=== PATIENT | female | born 1960 | race Caucasian/White ===

== ENCOUNTER 2018-02-26 20:38 | Inpatient (IN) | payer OTHER, SELFPAY ==
[~2018-02-26] VITALS: Ht 157.5 cm; Wt 92.0 kg
[~2018-02-26 20:38] MED LIST: AEROECLIPSE1 EACH MC; AZAT50 PO; Ativan0.5 MG PO; B Complex #11 EACH PO; BENZ100A PO; BIOTIN1000 MCG PO; Calcium + Vita1 EACH PO; Carisoprodol350 MG PO; DOXY100 PO; Duoneb 2.5-0.5 M3 ML INH; ESTROVEN NIGHT1 EAC1 PO; Flonase 0.05% N16 GM; LEVSOD100 PO; LORA1 PO; MORP30 PO; MORP30ER PO; MORP50ER PO; MORP60ER PO; MORPHINE SULFA100 MG PO; Mucinex600 MG PO; OCTAGAM 10% VIA20 ML IV; ONDA8 PO; Omeprazole20 M1 PO; PROCODE120 PO; PYRI60 PO; SOMA350 MG PO; SUMA25 PO; TEMA7.5 PO; VENL150ER PO; VOLTAREN GEL TOP; VOLTAREN TOP; Vanadom350 MG PO; Vibramycin100 MG PO; [UNRECOGNIZED DRUG - OTHER] PO
[2018-02-26] MEDS ORDERED: CYCL10 PO (21:01)
[2018-02-26] MEDS ORDERED: DIPH50 PO (21:02)
[2018-02-26 21:53] LABS: BASOPHILS ABSOLUTE AUTO 0.01 K/mm3 (0.00-0.23); BASOPHILS PERCENT AUTO 0 % (0-2); EOSINOPHILS ABSOLUTE AUTO 0.17 K/mm3 (0.00-0.68); EOSINOPHILS PERCENT AUTO 4 % (0-6); Hematocrit 35.3 % (33.0-51.0); Hemoglobin 11.5 g/dL (11.5-16.0); IMMATURE GRAN ABSOLUTE AUTO 0.01 K/mm3 (0.00-0.10); IMMATURE GRAN PERCENT AUTO 0 % (0-1); LYMPHOCYTES ABSOLUTE AUTO 1.15 K/mm3 (0.84-5.20); LYMPHOCYTES PERCENT AUTO 29 % (21-46); MONOCYTES ABSOLUTE AUTO 0.37 K/mm3 (0.16-1.47); MONOCYTES PERCENT AUTO 9 % (4-13); Mean Corpuscular HGB 32.8 pg (26.0-34.0); Mean Corpuscular HGB Conc 32.6 g/dL (31.5-36.5); Mean Corpuscular Volume 101 fL (80-100); Mean Platelet Volume 10.4 fL (9.1-12.4); NEUTROPHILS ABSOLUTE AUTO 2.31 K/mm3 (1.96-9.15); NEUTROPHILS PERCENT AUTO 58 % (41-73); Platelet Count 213 K/mm3 (150-400); RDW Coefficient Variation 16.2 % (11.7-14.2); RDW Standard Deviation 59.6 fL (35.1-46.3); Red Blood Cell Count 3.51 M/mm3 (3.80-5.20); White Blood Cell Count 4.02 K/mm3 (4.00-11.30)
[2018-02-26 22:20] LABS: Alanine Aminotransfer (ALT/SGP 145 U/L (12-78); Albumin/Globulin Ratio 1.1 (0.8-1.8); Alk Phos 105 U/L (50-136); Anion Gap 5 mmol/L (6-16); Aspartate Aminotrans (AST/SGOT 167 U/L (12-37); Bilirubin, Total 0.5 mg/dL (0.1-1.0); Blood Urea Nitrogen 20 mg/dL (8-24); Bun/Creatinine Ratio 31.2 (12.0-20.0); CO2, Blood 29 mmol/L (21-32); Calcium, Blood 9.1 mg/dL (8.5-10.1); Chloride, Blood 105 mmol/L (98-108); Creatinine, Blood 0.64 mg/dL (0.40-1.00); Globulin, Blood 3.8 g/dL (2.2-4.0); Glomerular Filtration Rate >60 (60-); Glucose, Blood 122 mg/dL (70-99); Potassium, Blood 3.5 mmol/L (3.5-5.5); Sodium, Blood 139 mmol/L (136-145); Total Protein, Blood 7.8 g/dL (6.4-8.2)
[2018-02-26 22:31] LABS: Source, Urine Catheter
[2018-02-26 22:34] LABS: Bilirubin, Urine Neg (Neg); Blood, Urine Neg (Neg); Glucose Qualitative, Urine Neg (Neg); Ketones, Urine Neg (Neg); Leukocyte Esterase, Urine Neg (Neg); Nitrite, Urine Neg (Neg); Protein, Urine Neg (Neg); Urobilinogen, Urine NORM (Normal)
[2018-02-26 22:37] LABS: Appearance, Urine Clear (Clear); Color, Urine Yellow (P-Yellow)
[2018-02-26 22:52] LABS: Free Thyroxine 1.25 ng/dL (0.70-1.60)
[2018-02-26 22:54] LABS: Thyroid Stimulating Hormone 2.85 uIU/mL (0.360-4.800); Triiodothyronine, Free 3.14 pg/mL (2.18-3.98)
[2018-02-27] MEDS ORDERED: MORP15ER PO (02:35)
[2018-03-01 05:00] LABS: BASOPHILS ABSOLUTE AUTO 0.01 K/mm3 (0.00-0.23); BASOPHILS PERCENT AUTO 0 % (0-2); EOSINOPHILS PERCENT AUTO 5 % (0-6); Hematocrit 31.2 % (33.0-51.0); IMMATURE GRAN PERCENT AUTO 0 % (0-1); LYMPHOCYTES ABSOLUTE AUTO 1.09 K/mm3 (0.84-5.20); LYMPHOCYTES PERCENT AUTO 49 % (21-46); MONOCYTES ABSOLUTE AUTO 0.24 K/mm3 (0.16-1.47); MONOCYTES PERCENT AUTO 11 % (4-13); Mean Corpuscular HGB 32.6 pg (26.0-34.0); Mean Corpuscular HGB Conc 32.1 g/dL (31.5-36.5); Mean Corpuscular Volume 102 fL (80-100); NEUTROPHILS ABSOLUTE AUTO 0.79 K/mm3 (1.96-9.15); NEUTROPHILS PERCENT AUTO 35 % (41-73); Platelet Count 184 K/mm3 (150-400); RDW Coefficient Variation 15.9 % (11.7-14.2); Red Blood Cell Count 3.07 M/mm3 (3.80-5.20); White Blood Cell Count 2.23 K/mm3 (4.00-11.30)
[2018-03-01 05:27] LABS: Anion Gap 6 mmol/L (6-16); Blood Urea Nitrogen 5 mg/dL (8-24); Bun/Creatinine Ratio 11.1 (12.0-20.0); CO2, Blood 31 mmol/L (21-32); Calcium, Blood 8.6 mg/dL (8.5-10.1); Chloride, Blood 101 mmol/L (98-108); Creatinine, Blood 0.45 mg/dL (0.40-1.00); Glomerular Filtration Rate >60 (60-); Glucose, Blood 85 mg/dL (70-99); Potassium, Blood 3.6 mmol/L (3.5-5.5); Sodium, Blood 138 mmol/L (136-145)
[2018-03-03 04:16] LABS: BASOPHILS ABSOLUTE AUTO 0.02 K/mm3 (0.00-0.23); BASOPHILS PERCENT AUTO 1 % (0-2); EOSINOPHILS ABSOLUTE AUTO 0.08 K/mm3 (0.00-0.68); EOSINOPHILS PERCENT AUTO 3 % (0-6); Hematocrit 33.9 % (33.0-51.0); Hemoglobin 11.2 g/dL (11.5-16.0); IMMATURE GRAN PERCENT AUTO 0 % (0-1); LYMPHOCYTES ABSOLUTE AUTO 1.12 K/mm3 (0.84-5.20); LYMPHOCYTES PERCENT AUTO 48 % (21-46); MONOCYTES ABSOLUTE AUTO 0.29 K/mm3 (0.16-1.47); MONOCYTES PERCENT AUTO 12 % (4-13); Mean Corpuscular HGB 32.5 pg (26.0-34.0); Mean Corpuscular Volume 98 fL (80-100); Mean Platelet Volume 10.4 fL (9.1-12.4); NEUTROPHILS ABSOLUTE AUTO 0.83 K/mm3 (1.96-9.15); NEUTROPHILS PERCENT AUTO 35 % (41-73); Platelet Count 228 K/mm3 (150-400); RDW Coefficient Variation 15.5 % (11.7-14.2); RDW Standard Deviation 55.9 fL (35.1-46.3); Red Blood Cell Count 3.45 M/mm3 (3.80-5.20); White Blood Cell Count 2.34 K/mm3 (4.00-11.30)
[2018-03-03 04:30] LABS: Anion Gap 6 mmol/L (6-16); Blood Urea Nitrogen 7 mg/dL (8-24); Bun/Creatinine Ratio 15.9 (12.0-20.0); CO2, Blood 29 mmol/L (21-32); Calcium, Blood 8.9 mg/dL (8.5-10.1); Chloride, Blood 100 mmol/L (98-108); Creatinine, Blood 0.44 mg/dL (0.40-1.00); Glomerular Filtration Rate >60 (60-); Glucose, Blood 90 mg/dL (70-99); Sodium, Blood 135 mmol/L (136-145)
[2018-03-03] MEDS ORDERED: Benadryl25 MG (09:21)
[2018-03-03] MEDS ORDERED: Ms Contin100 MG PO (11:56)
== END 2018-03-03 12:50 | disposition home or self-care (01) | DRG 57 ==
LOC: ER 20:38 → PCU 02-27 00:18 → MEDS 02-27 02:00 → PCU 02-27 02:03 → MEDS 02-27 17:38
PROVIDERS: Emergency Medicine; Internal Medicine
DX: G70.01 Myasthenia gravis with (acute) exacerbation (principal); F11.20 Opioid dependence, uncomplicated; M81.0 Age-related osteoporosis without current pathological fracture; E03.9 Hypothyroidism, unspecified
CPT/HCPCS: 36415; 51701; 71046; 80048; 80053; 81003; 84439; 84443; 84481; 85025; 96365; 96366; 97161; 97166; 97535; 99285; G8978; G8979; G8980; G8987; G8988; G8989; J1568; J1650; J7030; J7500

== ENCOUNTER 2019-09-12 08:30 | Inpatient (IN) | payer MEDICARE ==
[~2019-09-12] VITALS: Ht 160 cm; Wt 107.1 kg
[~2019-09-12 08:30] MED LIST changes: -B Complex #11 EACH PO; +B Complex-Foli1 EACH PO; +Benadryl25 MG; +CYCL10 PO; +DIPH50 PO; +MORP15ER PO
[2019-09-12 08:56] LABS: Base Excess Venous 12.1 mmol/L; PCO2 Venous 68.7 mmHg (38-42); pH Blood Venous 7.35 (7.34-7.37)
[2019-09-12 08:56] LABS: BASOPHILS ABSOLUTE AUTO 0.01 K/mm3 (0.00-0.23); BASOPHILS PERCENT AUTO 0 % (0-2); EOSINOPHILS PERCENT AUTO 0 % (0-6); Hematocrit 35.5 % (33.0-51.0); Hemoglobin 10.8 g/dL (11.5-16.0); IMMATURE GRAN ABSOLUTE AUTO 0.02 K/mm3 (0.00-0.10); IMMATURE GRAN PERCENT AUTO 0 % (0-1); LYMPHOCYTES ABSOLUTE AUTO 0.64 K/mm3 (0.84-5.20); LYMPHOCYTES PERCENT AUTO 7 % (21-46); MONOCYTES ABSOLUTE AUTO 0.42 K/mm3 (0.16-1.47); MONOCYTES PERCENT AUTO 5 % (4-13); Mean Corpuscular HGB 28.6 pg (26.0-34.0); Mean Corpuscular HGB Conc 30.4 g/dL (31.5-36.5); Mean Corpuscular Volume 94 fL (80-100); Mean Platelet Volume 11.7 fL (9.1-12.4); NEUTROPHILS PERCENT AUTO 88 % (41-73); Platelet Count 211 K/mm3 (150-400); RDW Coefficient Variation 14.7 % (11.7-14.2); RDW Standard Deviation 51.3 fL (35.1-46.3); Red Blood Cell Count 3.77 M/mm3 (3.80-5.20); White Blood Cell Count 8.89 K/mm3 (4.00-11.30)
[2019-09-12 09:15] LABS: Alanine Aminotransfer (ALT/SGP 31 U/L (12-78); Albumin, Blood 3.7 g/dL (3.4-5.0); Albumin/Globulin Ratio 0.8 (0.8-1.8); Alk Phos 117 U/L (50-136); Anion Gap 3 mmol/L (6-16); Aspartate Aminotrans (AST/SGOT 28 U/L (12-37); Bilirubin, Total 0.3 mg/dL (0.1-1.0); Blood Urea Nitrogen 9 mg/dL (8-24); Bun/Creatinine Ratio 17.2 (12.0-20.0); CO2, Blood 37 mmol/L (21-32); Calcium, Blood 8.7 mg/dL (8.5-10.1); Chloride, Blood 95 mmol/L (98-108); Creatinine, Blood 0.52 mg/dL (0.40-1.00); Ethanol (Alcohol), Blood, Med <3 mg/dL; Globulin, Blood 4.4 g/dL (2.2-4.0); Glomerular Filtration Rate >60 (60-); Glucose, Blood 153 mg/dL (70-99); Potassium, Blood 3.3 mmol/L (3.5-5.5); Sodium, Blood 135 mmol/L (136-145); Total Protein, Blood 8.1 g/dL (6.4-8.2)
[2019-09-12 10:18] LABS: PCO2 Arterial 71.1 mmHg (35-45); PO2 Arterial 96.6 mmHg (80-100); pH Blood Arterial 7.37 (7.35-7.45)
[2019-09-12 11:10] LABS: Source, Urine Clean Catch
[2019-09-12 11:17] LABS: Bilirubin, Urine Neg (Neg); Blood, Urine 1+ (Neg); Glucose Qualitative, Urine Neg (Neg); Ketones, Urine 2+ (Neg); Leukocyte Esterase, Urine Neg (Neg); Nitrite, Urine Neg (Neg); Protein, Urine 2+ (Neg); Specific Gravity, Urine 1.025 (1.003-1.022); Urobilinogen, Urine NORM (Normal)
[2019-09-12 11:24] LABS: Appearance, Urine Clear (Clear); Color, Urine Yellow (P-Yellow)
[2019-09-12 11:26] LABS: Red Blood Cells, Urine 0-2 /hpf (0-2); Squamous Epithelial Cells Few /hpf (Few)
[2019-09-12 11:27] LABS: Bacteria Rare /hpf; Mucus Light (0-Heavy)
--- NOTE | 2019-09-12 13:00 | NUR ---
ASSUMED CARE: PT ARIVED FROM ED ON A NON-REBREATHER MASK AT 10L. IV'S ARE SALINE LOCKED. NARCAN DRIP CAME WITH THE PT, BUT NOT RUNNING. PT APPEARS VERY IMPULSIVE AND IS DISROBING UPON ENTERING THE ROOM. PT IS ABLE TO TRANSFER TO ICU BED INDEPENDENTLY BY SCOOTING ACROSS BEDS. PT IS TALKING TO STAFF AND FOLLOWING DIRECTIONS. PT IS ABLE TO STATE SHE IS IN THE HOSPITAL, AND HER NAME AND DATE OF . SHE IS UNABLE TO STATE THE CITY OR THE DATE, BUT FOLLOWS COMMANDS. COWART IS IN PLACE. PT CONTINUES TO STATE SHE NEEDS TO GET UP AND USE THE BATHROOM. PT IS REMINDED OF HAING A CATHETER. WILL CONTINUE TO MONITOR AND ASSESS FURTHER.
--- NOTE | 2019-09-12 13:15 | NUR ---
RESTRAINTS AND AGITATION: NEW IV ATTEMPTED D/T PT ONLY HAVING FINGER AND THUMB IV'S. PT IS UNABLE TO REMAIN STILL FOR IV PLACEMENT DUE TO HAVING ALTERED MENTAL STATUS ANOTHER RN IS CALLED TO THE ROOM TO ASSIST IN STABALIZING PT'S ARM. ATEMPT WAS UNSUCCESSFUL. BLANCA KABA RN ATEMPTS TO PLACE AN IV BUT IS UNSUCCESSFUL D/T PT UNABLE TO REMAIN STILL EVEN WITH THIS RN ASSISTING TO STABALIZE PT ARM. PT IS REDIRECTED NUMEROUS TIMES DURING THE PROCESS AND INSTRUCTED TO REMAIN STILL. WHILE ATEMPTING AGAIN TO PLACE AN IV PT BEGINS TO SWING HER FIST AT STAFF AND THEN KICKS THIS RN IN THE FACE. RESTRAINTS ARE OBTAINED AND PT IS AT FIRST PLACED INTO SOFT RESTRAINTS ON ALL 4 EXTREMITIES, BUT THE SOFT RESTRAINT GIVES WAY AND PT BEGINS KICKING AGAIN. TUFF CUFFS PLACED ON ALL 4 EXTREMITIES. NOTIFIED AND ORDER PLACED.
[2019-09-12] MEDS ORDERED: Lipitor20 MG PO (15:08)
[2019-09-12] MEDS ORDERED: AMLO10 PO (15:10)
[2019-09-12] MEDS ORDERED: TIZA4 PO (15:20)
--- NOTE | 2019-09-12 17:38 | NUR ---
NARCAN: NARCAN WAS STARTED AND STOPPED NUMEROUS TIMES T/O THE SHIFT. ATEMPT TO START NARCAN AT 0.25 AND PT WOULD BECOME VERY AGITATED AND PULL AT RESTRAINTS WHILE MUMMBLING INCOHERENTLY. AFTER NARCAN TURNED OFF FOR AWHILE PT APPEARED TO BE RESTING. WOULD RESTART AT A LOWER DOSE AND THEN PT WOULD BE NOTED TO BECOME MORE AGITATED A WHILE LATER. PT SISTER WAS AT BEDSIDE WHEN PT WAS HEARD BECOMING VERY AGITATED AND MORE AWAKE.
--- NOTE | 2019-09-12 17:46 | NUR ---
OXYGEN DEMAND: PT ARIVED FROM ER ON A NONREBREATHER MASK AT 15L. WHILE DR GREENE WAS IN THE ROOM WE ATEMPTED TO PLACE PT ON A VINTI MASK AT 50% FIO2, BUT PT SATS CONTINUED TO DROP SO PLACED BACK ON THE NONREBREATHER. AMOUNT OF OXYGEN WAS DECREASED TO 10L AND PT O2 SATS TOLLERATED WELL. DR ALFONSO DISCUSSED WITH CARE TEAM PLAN TO KEEP PT O2 SATS AT OR BELOW 95%, IF PT SATS INCREASE WE ARE TO CHANGE TO THE VINTI MASK. T/O THE DAY PT HAS BEEN BACK AND FORTH TO THE VINTI MASK AND NON REBREATHER. PT IS ABLE TO TOLLERATE VINTI MAX FOR SHORT PERIODS OF TIME THEN HAS TO BE PLACED BACK ON THE NON REBREATHER MASK. CURRENTLY NON REBREATHER MASK AT 8L SATS ARE NOTED TO BE 95%. WILL CONTINUE TO MONITOR.
--- NOTE | 2019-09-12 20:32 | NUR ---
START OF SHIFT: REPORT FROM BUD SCOTT. UPON ENTERING THE ROOM PT LYING SUPINE IN 4-POINT NON-VIOLENT RESTRAINTS. VSS. PT WAS WEARING NON-REBREATHER MASK AT 7L, PT WAS SWITCHED TO OXYMIZER 7L. NALOXONE gtt WAS ON PAUSE, TKO AND KCL-RIDER INFUSING. PT LS DIMINISHED, COARSE BILATERAL UPPER LOBES C/ SLIGHT EXP WHEEZE. SATS 92-96% C/ OXYMIZER MASK. PT DROWSY BUT AWAKENED TO VOICE, WAS ORIENTED TO SELF, PERSON, PLACE, AND RECALLED INCIDENT, STATING, "I TOOK TOO MUCH OF MY MEDS". PT WAS TAKEN OUT OF RESTRAINTS AND WAS ORIENTED TO BED IN LOWEST POSITION, USE OF CALL LIGHT, BED ON ALARM. PT WAS REPOSITIONED TO HIGH FOWLERS AND WAS PROVIDED ORAL CARE. PT GIVEN WARM BLANKET C/ CALL LIGHT WITHIN REACH.
--- NOTE | 2019-09-12 23:49 | NUR ---
UPDATE: PT WAKING UP MORE, C/O BACK AND NECK PAIN. PT STATED THESE ARE NORMAL PAIN SITES FOR HER. PT ABLE TO TURN SELF NOW FOR COMFORT. PT STATED, "I DID THIS TO MYSELF!". PT CONTINUES TO TRY AND SLEEP MOANING AND TWITCHING YELLING OUT AT TIMES, HOWEVER, PT AWAKENS TO VOICE AND IS APPROPRIATE. VSS. WILL CONTINUE TO MONITOR.
--- NOTE | 2019-09-13 00:34 | NUR ---
UPDATE: DR. AGUILLON NOTIFIED RE: PT FULLY AWAKENED C/O INCREASED PAIN. NEW ORDERS: FENTANYL 25-50 mcg IVP Q4 PRN NEEDED FOR PAIN.
--- NOTE | 2019-09-13 04:46 | NUR ---
NO IMURAN: PT STATED HAS NOT TAKEN IMURAN FOR A LONG TIME.
--- NOTE | 2019-09-13 06:07 | NUR ---
PT REFUSED LAB DRAWS AFTER FEW ATTEMPTS FAILED.
--- NOTE | 2019-09-13 06:19 | NUR ---
SOFYA HINES'D PER PT REQUEST.
--- NOTE | 2019-09-13 07:11 | NUR ---
PT UP TO RECLINER CHAIR. PT THEN TO BSC FOR X-LARGE EPISODE OF DIARRHEA. PT DENIES BEING ON ANTIBIOTICS. REPORT GIVEN TO ONCOMING RN JEEVAN WHILE IN ROOM. PT WAS GIVEN SPONGE BATH, GOWN, AND LINEN CHANGED. PT REMAINS ON 5L OXYMIZER, SATS 95-98%. PT REMAINED ON BSC WHILE DAY SHIFT RN IN ROOM.
--- NOTE | 2019-09-13 07:45 | NUR ---
BEGINNING OF SHIFT Assumed care of pt at 0700 from Ramandeep SCOTT. Pt on 5 LPM oxymizer. Pt up to commode with large incontinent bowel movement, liquid mixed with pellets. Pt bathed and then placed in recliner. Discussed pt's confusion and combativeness yesterday. Pt becomes tearful and states "I don't know what to do" and "I did this to myself". Pt elborates that she was having difficulty controlling pain at home. Pt also states that her sister, who she was really close with, on August 11. When asked if that is what brought the patient to this area from [place], pt states "yes".
[2019-09-13 07:49] LABS: BASOPHILS ABSOLUTE AUTO 0.02 K/mm3 (0.00-0.23); BASOPHILS PERCENT AUTO 0 % (0-2); EOSINOPHILS ABSOLUTE AUTO 0.01 K/mm3 (0.00-0.68); EOSINOPHILS PERCENT AUTO 0 % (0-6); Hemoglobin 10.7 g/dL (11.5-16.0); IMMATURE GRAN ABSOLUTE AUTO 0.06 K/mm3 (0.00-0.10); IMMATURE GRAN PERCENT AUTO 1 % (0-1); LYMPHOCYTES ABSOLUTE AUTO 0.62 K/mm3 (0.84-5.20); LYMPHOCYTES PERCENT AUTO 5 % (21-46); MONOCYTES ABSOLUTE AUTO 0.65 K/mm3 (0.16-1.47); MONOCYTES PERCENT AUTO 6 % (4-13); Mean Corpuscular HGB 28.8 pg (26.0-34.0); Mean Corpuscular HGB Conc 30.6 g/dL (31.5-36.5); Mean Corpuscular Volume 94 fL (80-100); Mean Platelet Volume 11.1 fL (9.1-12.4); NEUTROPHILS ABSOLUTE AUTO 10.07 K/mm3 (1.96-9.15); NEUTROPHILS PERCENT AUTO 88 % (41-73); Platelet Count 200 K/mm3 (150-400); RDW Standard Deviation 51.8 fL (35.1-46.3); Red Blood Cell Count 3.72 M/mm3 (3.80-5.20); White Blood Cell Count 11.43 K/mm3 (4.00-11.30)
[2019-09-13 08:13] LABS: Anion Gap 4 mmol/L (6-16); Blood Urea Nitrogen 7 mg/dL (8-24); CO2, Blood 32 mmol/L (21-32); Chloride, Blood 98 mmol/L (98-108); Creatinine, Blood 0.39 mg/dL (0.40-1.00); Glomerular Filtration Rate >60 (60-); Glucose, Blood 123 mg/dL (70-99); Potassium, Blood 3.4 mmol/L (3.5-5.5); Sodium, Blood 134 mmol/L (136-145)
--- NOTE | 2019-09-13 09:33 | NUR ---
DR NATY VASQUEZ IN TO SEE PT Discussed O2 requirements and plan of care. Pt okay for medical floor status without telemetry.
--- NOTE | 2019-09-13 10:30 | NUR ---
DR YOST IN TO SEE PT States pt is okay for medical floor status and may eat regular diet. Discussed hypokalemia. Plan for PO replacement. Plan to restart long acting morphine later today. Provider also states plan for PT/OT
--- NOTE | 2019-09-13 10:57 | NUR ---
PAIN Pt requests pain medications, stating she is in pain. This RN asks patient if the pain is physical pain, pt states "Yes. It is. I know the difference." This RN explains to patient that she just received pain medication and pain control was discussed wit Dr Molina. This RN offers repositioning, ice packs, or a warm blanket. Pt refuses all these options, stating "It's just a band aid that is going to last 10 or so minutes". This RN educates pt that pain medications are also a "bandaid". Pt states she will try a warm blanket.
--- NOTE | 2019-09-13 14:15 | NUR ---
Called in to provide bereavement direct care counselor, comfort, and prayer to Mae. Her beloved sister @ 1 month ago. She is actively grieving this loss. Mae drifted in and out of sleep throughout visit. Whan awake, she is tearful and talkative. She has recently moved to [place] from [facility]. She is living with her older sister temporarily. She will benefit from Social Service guidence for community and medical assistance. Mae responded well to gentle direct care counselor. She has been involved with [facility] services for counseling. She beleives this has been helpful, and she plans to continue with [facility] one-on-one and group bereavement services. She is clearly grieving the loss of her sister, but also the loss of her own health due to a progressive illness. She will benefit from continued direct care counselor. I provided my contact information and will continue to see Mae as schedule permits.
--- NOTE | 2019-09-13 14:15 | NUR ---
C. DIFF Notified Dr Molina that C. diff was positive. Inquired about oral vanco. No new orders. Provider stated plan for administration of oral probiotics since pt is not experiencing abd pain, cramps, and has had less than 5 BMs today.
--- NOTE | 2019-09-13 14:32 | NUR ---
RECIEVED REPORT FROM JEEVAN, INDUSTRIAL HIRE SALES ASSISTANT, AT 1430. PATIENT TO TRANSFER TO ROOM 310.
--- NOTE | 2019-09-13 15:42 | NUR ---
TRANSFER TO MEDICAL FLOOR Pt transferred to room 310 via wheelchair accomapnied by this RN and GEOFFREY Cardona. Met pt's sister Chasidy in room. Pt transferred from wheelchair to bed with SBA. Chart, hannah, and meds transferred with patient. Pt remains on 6 LPM NC. No telemetry.
--- NOTE | 2019-09-13 17:13 | NUR ---
SHIFT SUMMARY THE PATIENT HAS BEEN ON THIS UNIT FOR A COUPLE OF HOURS NOW AND HAS BEEN WITHOUT ANY PROBLEMS OR CONCERNS. PLACED ON CONTACT ISOLATION FOR CDIFF. PATIENT HAS BEEN SETTLED INTO BED. DENIES PAIN AT THIS TIME. BEEN QUITE SLEEPY FOR ABOUT THE PAST HOUR. NO ACUTE CHANGES TO REPORT ON AT THIS TIME.
--- NOTE | 2019-09-14 05:05 | NUR ---
SHIFT SUMMARY- PT. ALERT WITH SOME CONFUSION. COOPERATIVE WITH CARE. SLEPT T/O THE NIGHT, NO APPARENT DISTRESS NOTED. SCHEDULED MEDS GIVEN PER EMAR, PT. TOLERATED WELL. NO ACUTE CHANGES OVERNIGHT. CALL LIGHT WITHIN REACH AND SIDE RAILS UP X2. WILL CONT TO MONITOR.
[2019-09-14 05:41] LABS: BASOPHILS ABSOLUTE AUTO 0.01 K/mm3 (0.00-0.23); BASOPHILS PERCENT AUTO 0 % (0-2); EOSINOPHILS ABSOLUTE AUTO 0.06 K/mm3 (0.00-0.68); EOSINOPHILS PERCENT AUTO 1 % (0-6); Hematocrit 36.8 % (33.0-51.0); Hemoglobin 11.3 g/dL (11.5-16.0); IMMATURE GRAN ABSOLUTE AUTO 0.02 K/mm3 (0.00-0.10); IMMATURE GRAN PERCENT AUTO 0 % (0-1); LYMPHOCYTES ABSOLUTE AUTO 0.89 K/mm3 (0.84-5.20); LYMPHOCYTES PERCENT AUTO 16 % (21-46); MONOCYTES ABSOLUTE AUTO 0.41 K/mm3 (0.16-1.47); MONOCYTES PERCENT AUTO 7 % (4-13); Mean Corpuscular HGB 28.5 pg (26.0-34.0); Mean Corpuscular HGB Conc 30.7 g/dL (31.5-36.5); Mean Corpuscular Volume 93 fL (80-100); Mean Platelet Volume 11.3 fL (9.1-12.4); NEUTROPHILS ABSOLUTE AUTO 4.37 K/mm3 (1.96-9.15); NEUTROPHILS PERCENT AUTO 76 % (41-73); Platelet Count 191 K/mm3 (150-400); RDW Coefficient Variation 15.6 % (11.7-14.2); RDW Standard Deviation 52.7 fL (35.1-46.3); Red Blood Cell Count 3.96 M/mm3 (3.80-5.20); White Blood Cell Count 5.76 K/mm3 (4.00-11.30)
[2019-09-14 06:04] LABS: Anion Gap 4 mmol/L (6-16); Blood Urea Nitrogen 7 mg/dL (8-24); CO2, Blood 34 mmol/L (21-32); Calcium, Blood 8.7 mg/dL (8.5-10.1); Chloride, Blood 103 mmol/L (98-108); Creatinine, Blood 0.47 mg/dL (0.40-1.00); Glomerular Filtration Rate >60 (60-); Glucose, Blood 109 mg/dL (70-99); Magnesium, Blood 2.4 mg/dL (1.6-2.4); Potassium, Blood 3.1 mmol/L (3.5-5.5); Sodium, Blood 141 mmol/L (136-145)
[2019-09-14] MEDS ORDERED: AZAT50 PO (09:39)
[2019-09-14] MEDS ORDERED: GABA300 PO (09:41)
[2019-09-14] MEDS ORDERED: Flonase 0.05% N16 GM (09:41)
[2019-09-14] MEDS ORDERED: MERIBIN5 MG PO (10:51)
[2019-09-14] MEDS ORDERED: MIRT15ST PO (10:52)
[2019-09-14] MEDS ORDERED: MORP30ER PO (10:55)
[2019-09-14] MEDS ORDERED: NARCAN4 MG (10:59)
[2019-09-14] MEDS ORDERED: OMEP20ER PO (11:00)
[2019-09-14] MEDS ORDERED: THERA1 EACH PO (11:01)
[2019-09-14] MEDS ORDERED: TIZA4 PO (11:01)
[2019-09-14] MEDS ORDERED: OYSTER SHELL 51 EACH PO (11:02)
--- NOTE | 2019-09-14 11:34 | NUR ---
GOOD SATS ON 3LPM, WAS ON 5 LPM OXYGEN. OXYGEN SHUT OFF AND WILL RECHECK SATS.
[2019-09-14] MEDS ORDERED: MORP30 PO (12:12)
--- NOTE | 2019-09-14 12:28 | NUR ---
PER DR.JAIN SULLIVAN TO ORDER NICOTINE GUM Q4 HOURS PRN
--- NOTE | 2019-09-14 12:35 | NUR ---
REVIEW D'C W/. AWARE TO BLOCK FEEDER MEDS AT [facility]. REVIEW ALL MEDS AND ASKS QUESTIONS. AWARE [facility] OR [facility] WILL CALL WITH F/U APPT. ALSO AWARE WILL F/U W/NEUROLOGY IN [place]. ANSWER ALL QUESTIONS. AWAITING PATIENT ADVOCATE AND MANISHAEEN ADVOCATE TO FINISH THEN WILL CALL FOR ESCORT.
--- NOTE | 2019-09-14 16:00 | NUR ---
Mae was in good spirits when I visited. She's a bit confused, but very pleasant. She did not remember my previous visit over the weekend. She says she feels much better and allowed me to pray for her. I will remain available.
--- NOTE | 2019-09-14 18:06 | NUR ---
ALERT. ORIENTED. TAKEN OFF OXYGEN. UNLABORED RESPIRATIONS W/SATS LOW 90'S. SPEAKS IN COMPLETE SENTENCES. WILL GO TO REHAB WHEN AVAILABLE. TM
--- NOTE | 2019-09-15 04:54 | NUR ---
SHIFT SUMMARY- NO ACUTE EVENTS OVERNIGHT. SCHEDULES MEDS GIVEN PER EMAR AND PT. FELL ASLEEP FOR THE REST OF THE NIGHT. NO APPARENT DISTRESS NOTED. NO FURTHER NEEDS T/O THE SHIFT. CALL LIGHT WITHIN REACH AND SIDE RAILS UP X2. WILL CONT TO MONITOR.
[2019-09-15 05:34] LABS: Anion Gap 6 mmol/L (6-16); Blood Urea Nitrogen 7 mg/dL (8-24); Bun/Creatinine Ratio 16.6 (12.0-20.0); CO2, Blood 29 mmol/L (21-32); Calcium, Blood 8.8 mg/dL (8.5-10.1); Chloride, Blood 105 mmol/L (98-108); Creatinine, Blood 0.42 mg/dL (0.40-1.00); Glomerular Filtration Rate >60 (60-); Glucose, Blood 104 mg/dL (70-99); Potassium, Blood 3.2 mmol/L (3.5-5.5); Sodium, Blood 140 mmol/L (136-145)
--- NOTE | 2019-09-15 17:42 | NUR ---
ALERT. ORIENTED. AMBULATORY IN HALLWAY W/P.T. MEDICATED FOR PAIN W/GOOD RESULTS. UNLABORED RESPIRATIONS. NOT ON OXYGEN. HAD BED BATH. ABLE TO MAKE NEEDS KNOWN. TM
--- NOTE | 2019-09-16 04:24 | NUR ---
SHIFT SUMMARY- PT. A&O, SITTING UP IN BED WATCHING TV AT THE BEGINNING OF THE SHIFT, PLEASANT AND COOPERATIVE WITH CARE. UP IN ROOM INDEPENDENTLY, SCHEDULED MEDS TAKEN W/O DIFFICULTY. SLEPT COMFORTABLY IN BED THE REST OF THE NIGHT. NO APPARENT DISTRESS NOTED. PLAN FOR DC TO SNF.
[2019-09-16 08:11] LABS: Anion Gap 6 mmol/L (6-16); Blood Urea Nitrogen 11 mg/dL (8-24); Bun/Creatinine Ratio 21.9 (12.0-20.0); CO2, Blood 27 mmol/L (21-32); Calcium, Blood 9.1 mg/dL (8.5-10.1); Chloride, Blood 106 mmol/L (98-108); Glomerular Filtration Rate >60 (60-); Glucose, Blood 111 mg/dL (70-99); Magnesium, Blood 2.1 mg/dL (1.6-2.4); Potassium, Blood 3.8 mmol/L (3.5-5.5); Sodium, Blood 139 mmol/L (136-145)
--- NOTE | 2019-09-16 17:00 | NUR ---
HAS PACKET FOR [facility] F/U AND WILL GO TO AND GIVE TO THEM. REVIEW D'C W/PT AND SISTER. HAS 2 RX'S FOR NARCOTIC MEDS. ALL MEDS PATIENT IS NORMALLY ON. AWARE [facility] WILL F/U. AWARE TO GET PROBIOTIC. ANSWER ALL QUESTIONS. IN W/C W/SUCCESSFACTORS CONSULTANT DOWN TO CAR
--- NOTE | 2019-09-16 18:25 | NUR ---
[facility] CALLED AND PATIENT HAS RX FOR MORPHINE IR AND JUST FILLED RX 08/27/19 FOR # 30 WITH RX WRITTEN ONE PER DAY, SO SHOULD HAVE ENOUGH TILL 09/25. RX CANCELLED. WHEN RN ASKED ABOUT THE SECOND RX PHARMACIST [facility] THEY DID NOT GET ONE AND THEN ASKS OTHER PHARMACIST. [facility] PATIENT ALREADY FILLED OTHER RX ( MORPHINE LONG ACTING #15) AT OTHER [facility]. PATIENT FILLED MORPHINE LONG ACTING ON 09/06 TID FOR #90. UNABLE TO CANCEL HOSPITALIST RX FOR #15. NOTIFIED OF INCIDENT. ALSO ADVISED, SISTER SAID SHE WAS GOING TO MONITOR PATIENTS INTAKE OF HER MEDS WHEN THIS RN REVIEWED D'C INSTRUCTIONS WITH BOTH OF THEM.
== END 2019-09-16 17:03 | disposition home health service (06) | DRG 917 ==
LOC: ER 08:30 → ICUW 08:31 → MEDS 11:20 → ICUW 11:20 → MEDS 09-13 10:05 → ENPENDDIS 09-14 12:36 → MEDS 09-16 17:03
PROVIDERS: Emergency Medicine; Internal Medicine; Internal Medicine Critical Care Medicine; ADMIT Family Medicine
DX: T40.2X1A Poisoning by other opioids, accidental (unintentional), initial encounter (principal); G92 Toxic encephalopathy; J96.01 Acute respiratory failure with hypoxia; J96.02 Acute respiratory failure with hypercapnia; M79.7 Fibromyalgia; M81.0 Age-related osteoporosis without current pathological fracture; E87.6 Hypokalemia; E03.9 Hypothyroidism, unspecified; E66.9 Obesity, unspecified; Z68.31 Body mass index [BMI] 31.0-31.9, adult; K21.9 Gastro-esophageal reflux disease without esophagitis; F43.21 Adjustment disorder with depressed mood; Z87.81 Personal history of (healed) traumatic fracture; Y92.9 Unspecified place or not applicable; Z87.891 Personal history of nicotine dependence
CPT/HCPCS: 36415; 36600; 51702; 70450; 71045; 80048; 80053; 81001; 82550; 82803; 82947; 83735; 85025; 87324; 87493; 90686; 93005; 93010; 96365-59; 96375-59; 96376-59; 97110; 97116; 97162; 97166; 97530; 97535; 99285-25; C1751; G0480; J1650; J2060; J2310; J2405; J3010; J3480

== ENCOUNTER 2019-10-12 07:53 | Inpatient (IN) | payer MEDICARE ==
[~2019-10-12] VITALS: Ht 154.9 cm; Wt 103.2 kg
[~2019-10-12 07:53] MED LIST changes: +AMLO10 PO; +GABA300 PO; +Lipitor20 MG PO; +MERIBIN5 MG PO; +MIRT15ST PO; +NARCAN4 MG; +OMEP20ER PO; +OYSTER SHELL 51 EACH PO; +THERA1 EACH PO; +TIZA4 PO
[2019-10-12 08:26] LABS: BASOPHILS ABSOLUTE AUTO 0.02 K/mm3 (0.00-0.23); BASOPHILS PERCENT AUTO 0 % (0-2); EOSINOPHILS ABSOLUTE AUTO 0.06 K/mm3 (0.00-0.68); EOSINOPHILS PERCENT AUTO 1 % (0-6); Hematocrit 38.6 % (33.0-51.0); Hemoglobin 12.2 g/dL (11.5-16.0); IMMATURE GRAN ABSOLUTE AUTO 0.01 K/mm3 (0.00-0.10); IMMATURE GRAN PERCENT AUTO 0 % (0-1); LYMPHOCYTES ABSOLUTE AUTO 0.98 K/mm3 (0.84-5.20); LYMPHOCYTES PERCENT AUTO 21 % (21-46); MONOCYTES ABSOLUTE AUTO 0.47 K/mm3 (0.16-1.47); MONOCYTES PERCENT AUTO 10 % (4-13); Mean Corpuscular HGB 28.5 pg (26.0-34.0); Mean Corpuscular HGB Conc 31.6 g/dL (31.5-36.5); Mean Corpuscular Volume 90 fL (80-100); Mean Platelet Volume 10.9 fL (9.1-12.4); NEUTROPHILS ABSOLUTE AUTO 3.05 K/mm3 (1.96-9.15); NEUTROPHILS PERCENT AUTO 67 % (41-73); Platelet Count 188 K/mm3 (150-400); RDW Coefficient Variation 15.3 % (11.7-14.2); RDW Standard Deviation 50.6 fL (35.1-46.3); Red Blood Cell Count 4.28 M/mm3 (3.80-5.20); White Blood Cell Count 4.59 K/mm3 (4.00-11.30)
[2019-10-12 08:47] LABS: Alanine Aminotransfer (ALT/SGP 32 U/L (12-78); Albumin, Blood 3.7 g/dL (3.4-5.0); Albumin/Globulin Ratio 0.8 (0.8-1.8); Alk Phos 110 U/L (50-136); Anion Gap 4 mmol/L (6-16); Aspartate Aminotrans (AST/SGOT 37 U/L (12-37); Bilirubin, Total 0.3 mg/dL (0.1-1.0); Blood Urea Nitrogen 7 mg/dL (8-24); Bun/Creatinine Ratio 12.9 (12.0-20.0); CO2, Blood 30 mmol/L (21-32); Calcium, Blood 8.6 mg/dL (8.5-10.1); Chloride, Blood 103 mmol/L (98-108); Creatinine, Blood 0.54 mg/dL (0.40-1.00); Globulin, Blood 4.4 g/dL (2.2-4.0); Glomerular Filtration Rate >60 (60-); Glucose, Blood 122 mg/dL (70-99); Potassium, Blood 3.7 mmol/L (3.5-5.5); Sodium, Blood 137 mmol/L (136-145); Total Protein, Blood 8.1 g/dL (6.4-8.2); Troponin I <0.015 ng/mL (0.000-0.040)
[2019-10-12 09:50] LABS: Influenza A Negative (NEGATIVE); Influenza B Positive (NEGATIVE)
[2019-10-12] MEDS ORDERED: PYRI60 PO (12:52)
[2019-10-12] MEDS ORDERED: DICLOFENAC SOD100 G1 TOP (13:23)
[2019-10-12] MEDS ORDERED: AMLO10 PO (13:30)
[2019-10-12] MEDS ORDERED: ATOR20 PO (13:31)
[2019-10-12 15:45] LABS: PCO2 Arterial 63.3 mmHg (35-45); pH Blood Arterial 7.34 (7.35-7.45)
--- NOTE | 2019-10-12 17:26 | NUR ---
ADMIT REPORT RECEIVED. PT ARRIVED VIA GURNEY AWAKE AND ALERT. RESP. SHALLOW MILDLY TACHYPNIC. VOICE STRAINED WITH TALKING. VSS. CONSULT CALLED TO DR PACHECO PER ORDER. CAUGHT PT UP ON HER ROUTINE MEDICATIONS. IGG INFUSING AT 30 ML/HR. PT TOLERATING WELL. PT GIVEN LUNCH. EATING WITHOUT DIFFICULTY. CONTINUE POT.
--- NOTE | 2019-10-12 18:06 | NUR ---
transfer icu 7 Report called to ziggy blackwood. PT up to bsc with sba. Planning to move via w/c. continue pot.
--- NOTE | 2019-10-12 18:47 | NUR ---
PT ADMITTED TO ICU-7 VIA W/C ON 4LNC. PT WAS CHANGED TO WALL O2 AT 4L AND ON MONITOR WITH NSR AND ADIQUATE VS NOTED. PT CHIEF C/O IS FATIGUE AND SL WORSENING BREATHIING T.O. DAY BUT MAINLY THE FATIGUE. PT ALSO C/O H.A. FOR WHICH TYLENOL WAS GIVEN AND WILL FOLLOW AND REPORT RESULTS TO NOC SHIFT. PT OTHERWISE REMAINS A/O AND QUITE AWARE OF HER CURRENT SYMPTOMS AND HOW SHE IS DOING. SATS RUNNNIG 96 ON 4L AND LUNGS ARE QUITE DIMINISHED IN LOWER LUNG MORAN BUT CLEAR IN UPPER. PT CONT TO WANT TO CALL FAMILY AND TALK ON THE PHONE DISPITE THE ABOVE STATUS. PT HAS SOME PRONOUNCED KYPHOSIS. PT IS GIVEN CALL LIGHT AND LIGHTS ARE TURNED DOWN TO AID H.A.
[2019-10-12 22:12] LABS: Adenovirus Not Detected (NOT DETECT); Bordetella pertussis Not Detected (NOT DETECT); Chlamydophila pneumoniae Not Detected (NOT DETECT); Coronavirus 229E Not Detected (NOT DETECT); Coronavirus HKU1 Not Detected (NOT DETECT); Coronavirus NL63 Not Detected (NOT DETECT); Coronavirus OC43 Not Detected (NOT DETECT); Human Metapneumovirus Not Detected (NOT DETECT); Human Rhinovirus/Enterovirus Not Detected (NOT DETECT); Influenza A Not Detected (NOT DETECT); Influenza A/2009-H1 Not Detected (NOT DETECT); Influenza A/H1 Not Detected (NOT DETECT); Influenza A/H3 Not Detected (NOT DETECT); Influenza B Detected (NOT DETECT); Mycoplasma pneumoniae Not Detected (NOT DETECT); Parainfluenza Virus 1 Not Detected (NOT DETECT); Parainfluenza Virus 2 Not Detected (NOT DETECT); Parainfluenza Virus 3 Not Detected (NOT DETECT); Parainfluenza Virus 4 Not Detected (NOT DETECT); Respiratory Syncytial Virus Not Detected (NOT DETECT)
[2019-10-13 03:22] LABS: Bicarbonate Venous 31.1 mmol/L (24.0-30.0); PO2 Venous 109 mmHg (38-42); pH Blood Venous 7.37 (7.34-7.37)
[2019-10-13 03:43] LABS: Hematocrit 38.7 % (33.0-51.0); Hemoglobin 11.9 g/dL (11.5-16.0); Mean Corpuscular HGB 28.5 pg (26.0-34.0); Mean Corpuscular HGB Conc 30.7 g/dL (31.5-36.5); Mean Platelet Volume 11.1 fL (9.1-12.4); Platelet Count 158 K/mm3 (150-400); RDW Coefficient Variation 15.4 % (11.7-14.2); RDW Standard Deviation 52.6 fL (35.1-46.3); Red Blood Cell Count 4.18 M/mm3 (3.80-5.20); White Blood Cell Count 4.07 K/mm3 (4.00-11.30)
[2019-10-13 03:44] LABS: Mean Corpuscular Volume 93 fL (80-100)
[2019-10-13 04:01] LABS: Anion Gap 2 mmol/L (6-16); Blood Urea Nitrogen 4 mg/dL (8-24); Bun/Creatinine Ratio 8.6 (12.0-20.0); CO2, Blood 34 mmol/L (21-32); Chloride, Blood 100 mmol/L (98-108); Creatinine, Blood 0.46 mg/dL (0.40-1.00); Glomerular Filtration Rate >60 (60-); Glucose, Blood 123 mg/dL (70-99); Potassium, Blood 3.7 mmol/L (3.5-5.5); Sodium, Blood 136 mmol/L (136-145)
--- NOTE | 2019-10-13 05:30 | NUR ---
SHIFT SUMMARY PATIENT SLEPT WELL THROUGH NIGHT. PAIN WELL RELIEVED WITH ORDERED MORPHINE. VSS. VENOUS BLOOD GAS SLIGHTLY IMPROVED FROM ADMIT ABG. WILL CONTINUE TO MONITOR.
--- NOTE | 2019-10-13 07:30 | NUR ---
START OF SHIFT NOTE: RECEIVED REPORT FROM SONIA RICHARD, ASSUMED CARE, PATIENT IS SLEEPING BUT EASILY AROUSEABLE, REPORTS NO PAIN, AFEBRILE, C/O NAUSEA, ALREADY RECEIVED ZOFRAN, BUT STILL HAS SOME NAUSEA, REFUSED ALL OF HER SIX O' CLOCK MEDICATIONS, HAS SECOND BAG OF NS INFUSING, THEN S/L, ALERT AND ORIENTED, LUNG SOUNDS DIMINISHED IN BASES, PATIENT ON 4L NC SATING AT MID 90'S, SR WITH HR IN 80'S, BOWEL TONES HYPOACTIVE, PATIENT URINATES LARGE AMOUNTS, UP TO BSC WITH SBA ONLY, DOZES OFF EASILY, CALL LIGHT IN REACH, WILL CONTINUE TO MONITOR.
--- NOTE | 2019-10-13 13:11 | NUR ---
PATIENT REFUSED LUNCH, STATED "I AM A PICKY EATER IT IS AND I DON'T FEEL GREAT", RECEIVED SCHEDULED PO MORPHINE DOSE, CALL LIGHT IN REACH, WILL CONTINUE TO MONITOR.
--- NOTE | 2019-10-13 13:15 | NUR ---
PATIENT'S SISTER CALLED AND WAS GIVEN AN UPDATE ON PATIENT CONDITION.
--- NOTE | 2019-10-13 15:29 | NUR ---
MERCED MOORE RN, CARE MANAGEMENT, IN TO SEE PATIENT.
--- NOTE | 2019-10-13 16:12 | NUR ---
ISOLATION INFORMATION SPOKE WITH FLORY SCOTT IN INFECTION CONTROL. ISOLATION WILL REMAIN IN PLACE X 7 DAYS OR UNTIL INFLUENZA B TREATMENT COMPLETE. ISOLATION CAN BE DISCONTINUED LONG PATIENT IS NOT HAVING ANY RESPIRATORY/SPUTUM PRODUCTION OR ABDOMINAL COMPLAINTS RELATED TO PATIENT REPORTED C-DIFF COLONIZATION.
--- NOTE | 2019-10-13 16:36 | NUR ---
Telephone report received from SONIA Kraus from ICU. Anticipate arrival of pt from ICU 7 to PCU 16 shortly.
--- NOTE | 2019-10-13 16:39 | NUR ---
REPORT CALLED TO SONIA VELEZ, PATIENT WILL TRANSFER TO ROOM PCU 16 VIA WHEELCHAIR.
--- NOTE | 2019-10-13 17:18 | NUR ---
C/O NAUSEA, VOMITED 200 CC MURILLO LIQUID. Given zofran for nausea. States she is going to try and sleep now. Lights dimmed, room quieted for sleep.
--- NOTE | 2019-10-13 18:28 | NUR ---
summary Received the pt from ICU this evening, and shortly thereafter she was nauseated and vomited. Zofran was given, and no other nausea/vomiting. She has been sleeping since then, and declined dinner due to her nausea. She is wearing oxygen at 4 l/min, states that she doesn't use any oxygen nor cpap/bipap at home.
--- NOTE | 2019-10-13 23:04 | NUR ---
PROVIDER CONTACTED PT REOPRTING CONTINUED NAUSEA AND VOMITING THROUGHOUT THE DAY. STATES THAT ZOFRAN WILL OCCASIONALLY DECREASE NAUSEA, BUT NOT FOR LONG. PROVIDER, MESFIN, CONTACTED AND ORDERS RECEIVED FOR REGLAN 5MG Q6 PRN IN ADDITION TO ZOFRAN ORDER TO CONTROL NAUSEA. WILL INPUT ORDER AND ADMINISTER NEEDED.
[2019-10-14 03:34] LABS: Base Excess Venous 12.3 mmol/L; Bicarbonate Venous 33.7 mmol/L (24.0-30.0); PCO2 Venous 66.9 mmHg (38-42); PO2 Venous 66.6 mmHg (38-42); pH Blood Venous 7.36 (7.34-7.37)
--- NOTE | 2019-10-14 05:22 | NUR ---
SHIFT SUMMARY PT HAS REMAINED AOX4 THROUGHOUT SHIFT. VSS. PLEASANT AND COOPERATIVE WITH CARE. PT HAS RESTED WELL THROUGHOUT THE NIGHT, WAKING EASILY FOR CARE. PT AMBULATES WITH STANDBY ASSIST TO THE BEDSIDE COMMODE WITHOUT DIFFICULTY. O2 SATS HAVE REMAINED >90% ON 4L VIA NASAL CANNULA. MEDICATED PT ONCE FOR PAIN THAT DECREASED WITH ORDERED MEDICATION. MEDICATED FOR NAUSEA THAT DECREASED WITH ZOFRAN. PT HAS NOT REQUESTED SECONDARY MEDICATION FOR NAUSEA AFTER ORDERED EARLIER IN THE SHIFT. NO OTHER CHANGES NOTED FROM INITIAL ASSESSMENT. WILL CONTINUE TO MONITOR AND REPORT TO ONCOMING SHIFT RN. BED IN LOW POSITION, CALL LIGHT IN REACH.
--- NOTE | 2019-10-14 08:38 | NUR ---
AM NOTE. ASSUMED CARE OF PT APROX 0700. PT IS A&Ox4 AND SBA IN THE ROOM. PT WAS ADMITTED FOR ACUTE RESP FAILURE D/T FLU B. PT IS CURRENTLY ON 4L NC WITH O2 SATS >92%. L/S COARSE W/SOME WHEEZES HEARD T/O. PT IS REFUSING ANY BREATHING TREATMENTS STATING THEY MAKE HER NAUSEOUS. PT HAS BEEN C/O OF NAUSEA SINCE ADMIT. PT ALSO IS REFUSING HER TAMIFLU BECAUSE "IT MAKES ME VOMIT." PT HAS BEEN IN NSR IN THE 60'S-80'S. NO EDEMA NOTED ON ASSESSMENT. BT PRESENT AND HYPOACTIVE. WILL CONTINUE TO MONITOR.
--- NOTE | 2019-10-14 15:42 | NUR ---
PT UPDATE... PT HAS BEEN TITRATED FROM 4L NC TO 2L NC WITH O2 SATS >92%. PT'S VS HAVE BEEN STABLE.
--- NOTE | 2019-10-14 18:00 | NUR ---
SHIFT SUMMARY. NO ACUTE NEGATIVE CHANGES NOTED THIS SHIFT. PT HAS BEEN TITRATED FROM 4L NC TO 2L NC AND HAS TOLERATED THIS WELL. PT HAS BEEN UP TO THE BSC TO VOID ONCE THIS SHIFT AND HAS HAD NO BM. PT HAS BEEN C/O OF N/V AT THE START OF THIS SHIFT AND STARTING AGAIN AT 1800. PT MEDICATED PER EMAR. PT HAS BEEN SLIGHTLY HYPERTENSIVE, PROVIDER AWARE. OTHER VS STABLE AT THIS TIME. CALL LIGHT IN REACH, WILL CONTINUE TO MONITOR UNTIL REPORT IS GIVEN TO ONCOMING RN.
--- NOTE | 2019-10-15 06:54 | NUR ---
SUMMARY PT REMAINS IN ISOLATION FOR INFLUENZA B. PT CONT TO C/O NAUSEA, BUT NO EMESIS. SELECTIVELY REFUSES MEDS REPORTING SPECIFIC MEDS CAUSING NAUSEA,INCLUDING TAMIFLU.PT VERB UNDERSTANDING OF RISK OF REFUSING THESE MEDS.PT REQUIRING PO PAIN MEDS,ZOFRAN,PHENERGAN TONIGHT. PT ASKING ABOUT MS BEING IR INSTEAD OF LONG ACTING AND ALSO ? DOSING.I ADVISED PT WILL DISCUSS THIS INFO WITH DAY RN AND SHE AGREES TO FOLLOW UP.
--- NOTE | 2019-10-15 08:55 | NUR ---
AM NOTE... ASSUMED CARE OF PT APROX 0700. PT IS A&Ox4 AND SBA/IND IN THE ROOM. PT WAS ADMITTED FOR RESP FAILURE R/T THE FLU. CURRENTLY PT IS ON 2L NC WITH O2 SATS >93%. PT GOT UP IND AND WALKED TO THE BATHROOM WITH THIS RN IN THE ROOM WITH VERY MINIMAL ASSIST. PT WAS ENCOURAGED TO GET UP IN A CHAIR TO EAT BREAKFAST BUT PT REFUSED. PT AGAIN REFUSED HER TAMIFLU THIS AM. PT'S VS STABLE. CALL LIGHT IN REACH, WILL CONTINUE TO MONITOR.
--- NOTE | 2019-10-15 17:13 | NUR ---
SHIFT SUMMARY. NO ACUTE NEGATIVE CHANGES NOTED THIS SHIFT. PT HAS BEEN IN BED MOST OF THE SHIFT, PT HAS BEEN ENCOURAGED TO GET UP IN TO A CHAIR, USE THE I.S. AND COUGH/DEEP BREATH, PT VERBALIZED HER UNDERSTANDING OF THESE TECHNIQUES TO PREVENT PNA BUT HAS REFUSED TO PARTICIPATE. WHEN PT IS SITTING UP ON THE SIDE OF THE BED THE PT IS ON RA WITH O2 SATS >93%, HOWEVER IN BED SHE IS NEEDING 2L NC TO HAVE SATS >90%. PT HAS HAD MINIMAL PO INTAKE THIS SHIFT BUT HAS TAKEN A FEW BITES OF EACH MEAL. PT'S VS HAVE BEEN STABLE. PT MEDICATED FOR PAIN PER EMAR. CALL LIGHT IN REACH, BED IS LOCKED AND LOW WILL CONTINUE TO MONITOR UNTIL REPORT IS GIVEN TO ONCOMING RN.
--- NOTE | 2019-10-15 20:10 | NUR ---
TRANSFER: PATIENT HAS HER PURSE WITH HER IN ROOM AFTER TRANSFER TO UNIT. PATIENT IS ASKED IF SHE HAS ANY VALUABLES WITH HER THAT SHE WOULD LIKE TO PUT INTO HOSPITAL SAFE OR IF SHE HAS ANY OF HER HOME MEDICATIONS WITH HER. PATIENT DENIES EITHER AT THIS TIME.
--- NOTE | 2019-10-16 06:14 | NUR ---
SHIFT SUMMARY: PATIENT IS A&OX4, PRODUCTIVE COUGH CONTINUES, TESSOLON PEARLS ARE GIVEN WITH GOOD EFFCT. CHRONIC PAIN IS WELL CONTROLED WITH SCHEDULED MORPHINE. APPETITE IS GOOD, VS ARE STABLE, NO RESPIRATORY DISTRESS OBSERVED. ON RA 02 SAT WAS 86%, ON 1L NC SAT IS 95-97%. PATIENT REMAINS IN DROPPLET PRECAUTIONS FOR THE FLU.
--- NOTE | 2019-10-16 16:14 | NUR ---
Pt resting in bed and denies pain. Pt denies dyspnea and anxiety at this time. Listened as Pt reports moving back to [place] from [place] to be closer to family. Pt reports adequate support with her sister and niece. Engaged in therapeutic discussion regarding advanced care planning. Discussed the importance for future planning as disease process takes its coarse. Pt reports plan to move into assisted living in the near future. She states understanding of the possibility of needing caregivers as disease takes it coarse. Pt also plans to pre pay for her cremation costs. Pt reports no concerns at this time and expresses appreciation of visit. Spoke with Pt's bedside RN and discussed case. reports no concerns at this time. Palliative Care will remain available.
--- NOTE | 2019-10-16 17:44 | NUR ---
SHIFT SUMMARY. A&OX4, INDEPENDENT IN ROOM WHEN IV SL. PT SLEPT MOST OF THE MORNING, AWAKE THIS EVENING RESTING COMFORTABLY WATCHING TV. PT DENIES SOB, PT REPORTS COUGH THAT HAS BEEN MANAGED WELL WITH CURRENT ORDERS. PT DENIES N/V. PT REPORTS CHRONIC GENERALIZED PAIN HAS BEEN MANAGED WITH CURRENT ORDERS. PT REPORTS BEING HOPEFUL TO D/C TOMORROW. NO NEW CHANGES OR CONCERNS.
--- NOTE | 2019-10-17 04:49 | NUR ---
SHIFT SUMMARY- NO ACUTE CHANGES OVERNIGHT. PT. A&O, SITTING UP IN BED MOST OF THE NIGHT WATCHING TV. ASLEEP COMFORTABLY THE REST OF THE SHIFT. PT. GIVEN SCHEDULED PAIN MED PER EMAR FOR HER GENERALIZED PAIN, TOLERATED WELL. PT. DENIED ANY NEEDS T/O THE NIGHT. CALL LIGHT WITHIN REACH AND SIDE RAILS UPX2. WILL CONT TO MONITOR.
[2019-10-17 08:56] LABS: Hematocrit 42.2 % (33.0-51.0); Hemoglobin 13.4 g/dL (11.5-16.0); Mean Corpuscular HGB 28.5 pg (26.0-34.0); Mean Corpuscular HGB Conc 31.8 g/dL (31.5-36.5); Mean Platelet Volume 11.1 fL (9.1-12.4); Platelet Count 197 K/mm3 (150-400); RDW Coefficient Variation 14.6 % (11.7-14.2); RDW Standard Deviation 48.8 fL (35.1-46.3); White Blood Cell Count 5.03 K/mm3 (4.00-11.30)
[2019-10-17 09:06] LABS: Mean Corpuscular Volume 90 fL (80-100)
[2019-10-17] MEDS ORDERED: VITAMIN D31000 UNI1 PO (10:46)
--- NOTE | 2019-10-17 15:01 | NUR ---
DISCHARGE SUMMARY PT DISCHARGED TO HOME. PT EDUCATED ON DC INSTRUCTIONS. PT AGREES TO FOLLOW UP WITH PCP AND NEUROLOGIST ON SATURDAY. IV DC'D AND BELONINGS RETURNED. PT LEFT ROOM VIA WHEELCHAIR AND MINI LAB OPERATOR ESCORT AT THIS TIME.
== END 2019-10-17 15:05 | disposition home or self-care (01) | DRG 56 ==
LOC: ER 07:53 → ERHOLD 07:54 → MEDS 13:16 → ERHOLD 13:16 → ICUE 13:16 → ERHOLD 13:17 → PCU 14:06 → ICUE 18:15 → PCU 10-13 17:09 → MEDS 10-15 17:58
PROVIDERS: Emergency Medicine; Internal Medicine Pulmonary Disease; ADMIT Internal Medicine
DX: G70.01 Myasthenia gravis with (acute) exacerbation (principal); J96.01 Acute respiratory failure with hypoxia; J96.02 Acute respiratory failure with hypercapnia; J10.1 Influenza due to other identified influenza virus with other respiratory manifestations; G89.4 Chronic pain syndrome; E03.9 Hypothyroidism, unspecified; G43.909 Migraine, unspecified, not intractable, without status migrainosus; K21.9 Gastro-esophageal reflux disease without esophagitis; M79.7 Fibromyalgia; M40.209 Unspecified kyphosis, site unspecified; M81.0 Age-related osteoporosis without current pathological fracture; Z87.891 Personal history of nicotine dependence
CPT/HCPCS: 0099U; 36415; 36600; 71046; 80048; 80053; 82803; 83880; 84484; 85025; 85027; 87804; 93005; 93010; 94640; 94660; 94760; 94762; 96365; 96366; 96375; 99285-25; A9270; J1568; J1650; J2060; J2405; J7030

== ENCOUNTER → 2019-10-19 | Outpatient (CLI) | payer BC ==
[~2019-10-19] MED LIST changes: +ATOR20 PO; +DICLOFENAC SOD100 G1 TOP; +VITAMIN D31000 UNI1 PO
[2019-10-19 16:53] LABS: U Amphetamine Screen Not Detected; U Barbituate Screen Not Detected; U Benzodiazapine Screen Not Detected; U Cannabinoids Screen Not Detected; U Cocaine Screen Not Detected; U Methadone Screen Not Detected; U Methamphetamine Screen Not Detected; U Opiates Screen DETECTED; U Phencyclidine Screen DETECTED
[2019-10-19 16:54] LABS: U Buprenorphine Screen Not Detected; U Oxycodone Screen Not Detected; U Propoxyphene Screen Not Detected
== END | disposition home or self-care (01) ==
LOC: LAB SHORT 15:23 → LAB 15:23
PROVIDERS: Physician Assistant
DX: G43.909 Migraine, unspecified, not intractable, without status migrainosus (principal); G70.00 Myasthenia gravis without (acute) exacerbation; F11.20 Opioid dependence, uncomplicated
CPT/HCPCS: G0480

== ENCOUNTER 2020-04-27 21:28 | Inpatient (IN) | payer MEDICARE, BC ==
[~2020-04-27] VITALS: Ht 170.2 cm; Wt 108.6 kg
[~2020-04-27 21:28] MED LIST changes: +FLUT.05NI; +MIRT15 PO; -MIRT15ST PO; +MULTI VITAMIN1 EACH PO; -THERA1 EACH PO
[2020-04-27 23:11] LABS: BASOPHILS ABSOLUTE AUTO 0.02 K/mm3 (0.00-0.23); BASOPHILS PERCENT AUTO 0 % (0-2); EOSINOPHILS ABSOLUTE AUTO 0.09 K/mm3 (0.00-0.68); EOSINOPHILS PERCENT AUTO 1 % (0-6); Hematocrit 36.2 % (33.0-51.0); Hemoglobin 11.1 g/dL (11.5-16.0); IMMATURE GRAN ABSOLUTE AUTO 0.04 K/mm3 (0.00-0.10); IMMATURE GRAN PERCENT AUTO 1 % (0-1); LYMPHOCYTES ABSOLUTE AUTO 1.24 K/mm3 (0.84-5.20); LYMPHOCYTES PERCENT AUTO 18 % (21-46); MONOCYTES ABSOLUTE AUTO 0.47 K/mm3 (0.16-1.47); MONOCYTES PERCENT AUTO 7 % (4-13); Mean Corpuscular HGB 28.5 pg (26.0-34.0); Mean Corpuscular HGB Conc 30.7 g/dL (31.5-36.5); Mean Corpuscular Volume 93 fL (80-100); Mean Platelet Volume 11.3 fL (9.1-12.4); NEUTROPHILS ABSOLUTE AUTO 4.89 K/mm3 (1.96-9.15); NEUTROPHILS PERCENT AUTO 72 % (41-73); Platelet Count 219 K/mm3 (150-400); RDW Coefficient Variation 14.9 % (11.7-14.2); RDW Standard Deviation 51.3 fL (35.1-46.3); Red Blood Cell Count 3.89 M/mm3 (3.80-5.20); White Blood Cell Count 6.75 K/mm3 (4.00-11.30)
[2020-04-27 23:32] LABS: Alanine Aminotransfer (ALT/SGP 27 U/L (12-78); Albumin, Blood 2.9 g/dL (3.4-5.0); Albumin/Globulin Ratio 0.5 (0.8-1.8); Alk Phos 86 U/L (50-136); Anion Gap 3 mmol/L (6-16); Aspartate Aminotrans (AST/SGOT 21 U/L (12-37); Bilirubin, Total 0.3 mg/dL (0.1-1.0); Blood Urea Nitrogen 9 mg/dL (8-24); Bun/Creatinine Ratio 16.6 (12.0-20.0); CO2, Blood 33 mmol/L (21-32); Calcium, Blood 8.6 mg/dL (8.5-10.1); Chloride, Blood 99 mmol/L (98-108); Creatinine, Blood 0.54 mg/dL (0.40-1.00); Globulin, Blood 5.6 g/dL (2.2-4.0); Glomerular Filtration Rate >60 (60-); Glucose, Blood 111 mg/dL (70-99); Potassium, Blood 3.6 mmol/L (3.5-5.5); Sodium, Blood 135 mmol/L (136-145); Total Protein, Blood 8.5 g/dL (6.4-8.2); Troponin I <0.015 ng/mL (0.000-0.040)
[2020-04-28 00:47] LABS: Adenovirus Not Detected (NOT DETECT); Bordetella pertussis Not Detected (NOT DETECT); Chlamydophila pneumoniae Not Detected (NOT DETECT); Coronavirus 229E Not Detected (NOT DETECT); Coronavirus HKU1 Not Detected (NOT DETECT); Coronavirus NL63 Not Detected (NOT DETECT); Coronavirus OC43 Not Detected (NOT DETECT); Human Metapneumovirus Not Detected (NOT DETECT); Human Rhinovirus/Enterovirus Not Detected (NOT DETECT); Influenza A/2009-H1 Not Detected (NOT DETECT); Influenza A/H1 Not Detected (NOT DETECT); Influenza A/H3 Not Detected (NOT DETECT); Influenza B Not Detected (NOT DETECT); Mycoplasma pneumoniae Not Detected (NOT DETECT); Parainfluenza Virus 1 Not Detected (NOT DETECT); Parainfluenza Virus 2 Not Detected (NOT DETECT); Parainfluenza Virus 3 Not Detected (NOT DETECT); Parainfluenza Virus 4 Not Detected (NOT DETECT); Respiratory Syncytial Virus Not Detected (NOT DETECT)
--- NOTE | 2020-04-28 02:15 | NUR ---
transfer report from Daria GRAVES Rn on 59 year old Female with hx of CDIFF & influenza B remote who [facility] but has become nauseated & vomiting increased weakness, SOB & reported RA sat 85% for EMS. EKG show SR, CXR shows possible fluid overload. O2 2 l for SOB, Covid 19 rapid test & resp panel negative. Await admission
[2020-04-28] MEDS ORDERED: Imitrex50 MG PO (03:24)
[2020-04-28 05:57] LABS: BASOPHILS ABSOLUTE AUTO 0.02 K/mm3 (0.00-0.23); BASOPHILS PERCENT AUTO 0 % (0-2); EOSINOPHILS ABSOLUTE AUTO 0.16 K/mm3 (0.00-0.68); EOSINOPHILS PERCENT AUTO 3 % (0-6); Hematocrit 37.9 % (33.0-51.0); Hemoglobin 11.8 g/dL (11.5-16.0); IMMATURE GRAN ABSOLUTE AUTO 0.03 K/mm3 (0.00-0.10); IMMATURE GRAN PERCENT AUTO 1 % (0-1); LYMPHOCYTES ABSOLUTE AUTO 1.29 K/mm3 (0.84-5.20); LYMPHOCYTES PERCENT AUTO 23 % (21-46); MONOCYTES ABSOLUTE AUTO 0.46 K/mm3 (0.16-1.47); MONOCYTES PERCENT AUTO 8 % (4-13); Mean Corpuscular HGB 28.6 pg (26.0-34.0); Mean Corpuscular HGB Conc 31.1 g/dL (31.5-36.5); Mean Corpuscular Volume 92 fL (80-100); Mean Platelet Volume 11.2 fL (9.1-12.4); NEUTROPHILS ABSOLUTE AUTO 3.61 K/mm3 (1.96-9.15); NEUTROPHILS PERCENT AUTO 65 % (41-73); Platelet Count 224 K/mm3 (150-400); RDW Coefficient Variation 14.7 % (11.7-14.2); RDW Standard Deviation 49.9 fL (35.1-46.3); Red Blood Cell Count 4.12 M/mm3 (3.80-5.20); White Blood Cell Count 5.57 K/mm3 (4.00-11.30)
--- NOTE | 2020-04-28 06:19 | NUR ---
59 year old female admitted after [facility] to get weekly infusion for myasthenia gravis & she became too weak to finish transfusion. PT is poor historian was unable to verify med rec in ER per report & she came to medical floor at 0225 am saying she has not taken some of her meds in days but wants them all now as she takes them. Called DR Muniz several times who admitted PT to get home meds rx & he has not completed home med rec. went over schedule of home meds updated as per PT current rx. said to resume PTs home meds but I am unable to order all home meds as verified from Pharmacist Kari at 0620. Will discuss with chargemaster specialist Stacy. PT on Tele NSR in 60s. Oxygen 2 l NC. PT requests her purse on admission & took 50 mg imitrex after she said she has no home meds in purse. Reported home med use to MD Muniz.
[2020-04-28 06:36] LABS: Alanine Aminotransfer (ALT/SGP 28 U/L (12-78); Albumin/Globulin Ratio 0.5 (0.8-1.8); Alk Phos 89 U/L (50-136); Anion Gap 4 mmol/L (6-16); Aspartate Aminotrans (AST/SGOT 19 U/L (12-37); Bilirubin, Total 0.3 mg/dL (0.1-1.0); Blood Urea Nitrogen 8 mg/dL (8-24); CO2, Blood 33 mmol/L (21-32); Calcium, Blood 8.7 mg/dL (8.5-10.1); Chloride, Blood 101 mmol/L (98-108); Creatinine, Blood 0.54 mg/dL (0.40-1.00); Globulin, Blood 5.9 g/dL (2.2-4.0); Glomerular Filtration Rate >60 (60-); Glucose, Blood 90 mg/dL (70-99); Potassium, Blood 3.5 mmol/L (3.5-5.5); Sodium, Blood 138 mmol/L (136-145); Total Protein, Blood 8.9 g/dL (6.4-8.2)
--- NOTE | 2020-04-28 07:39 | NUR ---
CALLED DR GAITAN- PT HAS MYESTHENIA GRAVIS AND IS ON MULTIPLE MEDICATIONS AT HOME. NO HOME MEDS ORDERED AT THIS TIME. WILL ORDER PT HOME MEDS [place].
--- NOTE | 2020-04-28 08:12 | NUR ---
PT REQUESTING PAIN MEDICATION FOR 10/10 PAIN. MEDS ORDERED AWAITING VERIFICATION FROM PHARMACY.
--- NOTE | 2020-04-28 09:05 | NUR ---
ATTEMPTED TO FLUSH PT IV PAINFULL TO FLUSH AND BUBBLED UP REMOVED AND PLACED A NEW IV RIGHT AC.
[2020-04-28 10:52] LABS: Source, Urine Clean Catch
[2020-04-28 11:05] LABS: Appearance, Urine Clear (Clear); Bilirubin, Urine Neg (Neg); Blood, Urine Neg (Neg); Color, Urine Yellow (P-Yellow); Glucose Qualitative, Urine Neg (Neg); Ketones, Urine 1+ (Neg); Leukocyte Esterase, Urine Neg (Neg); Nitrite, Urine Neg (Neg); Protein, Urine Neg (Neg); Urobilinogen, Urine NORM (Normal)
--- NOTE | 2020-04-28 16:29 | NUR ---
PT STATED WHEN SHE RECIEVES IGG THEY START AT 20ML/HR AND GO UP TO A MAX OF 60. PER THE ORDER THE DOSE WAS TO START INFUSING AT 60ML/HR. PT STATED OK "WE CAN START THERE." PT C/O HEADACHE HALF WAY THROUGH THE FIRST BOTTLE AND RATE WAS REDUCED SHE CAN TOLLERATE. NEAR THE END OF THE SECOND VIAL PT REQUESTED THE INFUSION BE STOPPED AND RESUMED TOMORROW. VITALS REMAINED STABLE T/O THE INFUSDION EVERY [address] SULLIVAN'D DC OF THE INFUSION PT RECIEVED 150 OF 180ML ORDERED 15G IN STEVE OF 18G. AWARE. ORDER BEING PLACED FOR TYLENOL FOR TOMORROWS INFUSION IF NEEDED. PT WOULD LIKE TO START AT 20ML WITH TOMORROWS INFUSION AND INCREASE THE WAY SHE IS USED TO DOING.
--- NOTE | 2020-04-28 20:07 | NUR ---
SHIFT SUMMARY- PT HAS HAD NO ACUTE CHANGE T/O THE SHIFT SEE PREVIOUS NOTES FOR DETAILS. HOME MEDS ORDERED FIRST THING THIS MORNING, PT HAS RECIEVED ALL SCHEDULED MEDICATIONS. NO S&S OF DISTRESS NOTED AT SHIFT CHANGE.
--- NOTE | 2020-04-29 06:17 | NUR ---
PT had better night with sleep promoted. Had routine meds as rx & had tylenol 650 mg once for co migrane headache pain with mild helpful effect. Continues with poor appetite but drinks large amts water. Unable to tolerate full IGG infusion on day shift reported , PT says this is new for her. She continues to void over 1000 ml per void. HAd echo & rt le venous doppler study. No BM since 04/25 says she usually goes every day but has such poor food intake, denies nausea.
--- NOTE | 2020-04-29 20:01 | NUR ---
SHIFT SUMMARY- PT RECIEVED IGG TODAY AND SHE SEEMED TO TOLLERATED IT MUCH BETTER. IV BENADRYL GIVEN PRIOR TO STARTING THE INFUSION. RATE STARTED AT 20 ML AND INCREASED TO 45 MAX TODAY. PT WAS ABLE TO TOLLERATED THE ORDERED DOSE. MEDICATED FOR PAIN PRN AROUND NOON, PRN PAIN MEDS AVAILABLE BID, PASSED ON TO NIGHT SONIA MASON IN REPORT THAT THE PT WOULD WANT THE SECOND DOSE WITH HER EVENING MEDS. NO ACUTE CHANGES T/O THE SHIFT. PT HAS BEEN SATTING WILL ON 2L VIA NH.
--- NOTE | 2020-04-30 16:14 | NUR ---
SHIFT SUMMARY PATIENT MEDICATED X2 FOR PAIN THIS SHIFT. DENIES NAUSEA AND SHORTNESS OF BREATH. PATIENT PREMEDICATED WITH ZOFRAN AND BENADRYL BEFORE IGG INFUSION. PATIENT TOLERATING INFUSION WELL. PATIENT UP INDEPENDENT IN ROOM. EATING AND DRINKING WELL. CALL LIGHT IN REACH.
--- NOTE | 2020-05-01 04:39 | NUR ---
SHIFT SUMMARY NO ACUTE CHANGES OVERNIGHT. PT TOLERATED HER IGG INFUSION GIVEN ON HI. MEDICATED PER ORDERS FOR CHRONIC NECK AND BACK PAIN WITH EFFECT. PT APPEARS TO HAVE RESTED WELL THIS SHIFT. SHE REPORTS BM YESTERDAY. VITALS ARE STABLE. PT INDEPENDENT IN ROOM. A/OX3, MAKES NEEDS KNOWN. BED IN LOWEST POSITION, CALL LIGHT WITHIN REACH.
--- NOTE | 2020-05-01 14:45 | NUR ---
DISCHARGE DISCHARGE MEDICATIONS AND INSTRUCTIONS EXPLAINED TO PATIENT. PATIENT STATED UNDERSTANDING. IV REMOVED WITHOUT DIFFICULTY. BELONGINGS WITH PATIENT. PATIENT TRANSFERED TO PRIVATE VEHICLE VIA WHEELCHAIR.
[2020-05-10] MEDS ORDERED: HYDCHL25 PO (08:53)
[2020-05-10] MEDS ORDERED: HYDCOR10 PO ×2 (08:58)
[2020-05-16] MEDS ORDERED: TIZA4 PO (18:59)
[2020-05-16] MEDS ORDERED: MORPHINE SULFAT60 MG PO (21:31)
[2020-05-17] MEDS ORDERED: PYRI60 PO (01:27)
[2020-05-19] MEDS ORDERED: LORA.5 PO (10:41)
== END 2020-05-01 14:14 | disposition home or self-care (01) | DRG 56 ==
LOC: ER 21:28 → MEDS 04-28 00:42
PROVIDERS: Emergency Medicine; ADMIT Internal Medicine
DX: G70.01 Myasthenia gravis with (acute) exacerbation (principal); J96.01 Acute respiratory failure with hypoxia; E03.9 Hypothyroidism, unspecified; M81.0 Age-related osteoporosis without current pathological fracture; K21.9 Gastro-esophageal reflux disease without esophagitis; G89.4 Chronic pain syndrome; Z87.891 Personal history of nicotine dependence
CPT/HCPCS: 0099U; 36415; 71045; 80053; 81003; 83880; 84484; 85025; 93005; 93010; 93306; 93971; 94761; 96374; 99285-25; A9270; A9270-GY; J1200; J1568; J1650; J1940; J2405; U0002

== ENCOUNTER 2020-12-12 13:45 | Inpatient (IN) | payer MEDICARE, BC ==
[~2020-12-12] VITALS: Ht 170.2 cm; Wt 102.9 kg
[~2020-12-12 13:45] MED LIST changes: +HYDCHL25 PO; +HYDCOR10 PO; +Imitrex50 MG PO; +LORA.5 PO; +MORPHINE SULFAT60 MG PO
[2020-12-12 15:21] LABS: BASOPHILS ABSOLUTE AUTO 0.02 K/mm3 (0.00-0.23); BASOPHILS PERCENT AUTO 0 % (0-2); EOSINOPHILS ABSOLUTE AUTO 0.14 K/mm3 (0.00-0.68); EOSINOPHILS PERCENT AUTO 3 % (0-6); Hematocrit 41.9 % (33.0-51.0); Hemoglobin 13.4 g/dL (11.5-16.0); IMMATURE GRAN ABSOLUTE AUTO 0.01 K/mm3 (0.00-0.10); IMMATURE GRAN PERCENT AUTO 0 % (0-1); LYMPHOCYTES ABSOLUTE AUTO 1.27 K/mm3 (0.84-5.20); LYMPHOCYTES PERCENT AUTO 25 % (21-46); MONOCYTES ABSOLUTE AUTO 0.37 K/mm3 (0.16-1.47); MONOCYTES PERCENT AUTO 7 % (4-13); Mean Corpuscular HGB 29.5 pg (26.0-34.0); Mean Corpuscular Volume 92 fL (80-100); Mean Platelet Volume 11.1 fL (9.1-12.4); NEUTROPHILS ABSOLUTE AUTO 3.32 K/mm3 (1.96-9.15); NEUTROPHILS PERCENT AUTO 65 % (41-73); Platelet Count 241 K/mm3 (150-400); RDW Coefficient Variation 14.2 % (11.7-14.2); RDW Standard Deviation 48.1 fL (35.1-46.3); Red Blood Cell Count 4.54 M/mm3 (3.80-5.20); White Blood Cell Count 5.13 K/mm3 (4.00-11.30)
[2020-12-12 15:40] LABS: Alanine Aminotransfer (ALT/SGP 28 U/L (12-78); Albumin, Blood 3.7 g/dL (3.4-5.0); Albumin/Globulin Ratio 0.7 (0.8-1.8); Alk Phos 101 U/L (50-136); Anion Gap 4 mmol/L (6-16); Aspartate Aminotrans (AST/SGOT 26 U/L (12-37); Bilirubin, Total 0.5 mg/dL (0.1-1.0); Blood Urea Nitrogen 5 mg/dL (8-24); Bun/Creatinine Ratio 9.7 (12.0-20.0); CO2, Blood 33 mmol/L (21-32); Calcium, Blood 9.2 mg/dL (8.5-10.1); Chloride, Blood 103 mmol/L (98-108); Creatinine, Blood 0.52 mg/dL (0.40-1.00); Globulin, Blood 5.2 g/dL (2.2-4.0); Glomerular Filtration Rate >60 (60-); Glucose, Blood 97 mg/dL (70-99); Potassium, Blood 3.8 mmol/L (3.5-5.5); Sodium, Blood 140 mmol/L (136-145); Total Protein, Blood 8.9 g/dL (6.4-8.2)
--- NOTE | 2020-12-13 00:35 | NUR ---
ARRIVED TO ICU 1 PT ARRIVED TO ICU 1 AT 2057 VIA ED BED AND ABLE TO STAND AND TRANSFER TO ICU BED WITH ONE PERSON ASSIST. PT IS ALERT/ORIENTED AND ABLE TO MAKE HER NEEDS KNOWN. PT STATES THAT SHE IS STARTING TO HAVE MORE CONTROL OVER HER RIGHT EYE AND ABLE TO PARTIALLY OPEN IT, PT ALSO STATES THAT SHE IS FEELING BETTER, NO NAUSEA OR VOMITING, AND STRONGER. SPO2 >95% ON 3L, WAS ABLE TO TITRATE O2 DOWN TO 2L AND SPO2 >95% STILL. AFIBRILE. HR 70'S. SBP 100-145. OCTAGAM INFUSION CONT AT A RATE OF 60ML/HR. NEW ORDERS FOR PO MORPHINE SULFATE AND MESTINON PROVIDED TO REFLECT PT HOME MED ROUTINE. SEE ADMIT ASSESSMENT FOR FULL ASSESSMENT.
--- NOTE | 2020-12-13 06:15 | NUR ---
END OF SHIFT SUMMARY PT SLEPT FOR SEVERAL HOURS AFTER 0000. PT IS ALERT/ORIENTED AND ABLE TO MAKE HER NEEDS KNOWN. PT STATES THAT SHE IS FEELING MUCH BETTER AND STRONGER, IS ABLE TO OPEN AND CLOSE BOTH EYES, AND HAS NOT HAD ANY DYSPNEA, OR NAUSEA. AFIBRILE. SPO2 >90% ON 2L NC. AFIBRILE. HR 60-80. SBP 120-145. IVIG INFUSION DOSE COMPLETE. WILL REPORT TO AM RN WHEN AVAILABLE.
--- NOTE | 2020-12-13 17:25 | NUR ---
SHIFT SUMMARY PT HAS DONE WELL THROUGHOUT THE DAY. SHE REMAINS ALERT AND ORIENTED. SPO2 MID 90S ON 2L/NC, WHICH SHE STATES SHE WEARS AT HOME WHEN SHE FEELS LIKE HER MYASTHENIA GRAVIS IS ACTING UP. LUNGS ARE CLEAR, DIM. MILD DYSPNEA WITH EXERTION. HRR, BP STABLE, AFEBRILE. EATING AND DRINKING WITHOUT DIFFICULTIES. PT WAS MADEMEDICAL, NO TELE, TODAY. SPOKE WITH TYPE CUTTER ABOUT AVAILABLE RESOURCES IN THE AREA TO HELP WITH MEALS AT HOME. NO OTHER CONCERNS FROM PT AT THIS TIME. CONTINUING TO MONITOR.
--- NOTE | 2020-12-13 18:18 | NUR ---
Mae has a nolvia chalino and positive attitude. She spoke at length about ehr numerous health challenges and explained how her chalino makes live worth-while. I provided affirmation and gentle student assistance counselor. She became tearful during prayer and was appreciative of emotional support. she is hopeful for recovery and denied fears/concerns. We had an easy rapport and I will remain available.
--- NOTE | 2020-12-13 19:15 | NUR ---
ASSUMED CARE RECEIVED REPORT FROM YUANRN; PT A&O X 4; DENIES CHEST PAIN; VSS; O2 SATS >93 ON RA; PT CURRENTLY DENIES NEEDS; SITTING UP IN BED PLAYING GAMES ON HER CELL PHONE; CALL LIGHT IN REACH; BED IN LOWEST POSITION.
--- NOTE | 2020-12-14 05:23 | NUR ---
SHIFT SUMMARY PT A&O X 4; PLEASANT & COMPLIANT W/ CARE; PT VERY IN TOUCH W/ MEDS AND NEEDS; DENIES CHEST PAIN; VSS; O2 SATS >93 ON 2L NC; PT STATES SHE USES O2 DURING HER EPISODES OF EXACERBATION, OTHERWISE RA AT BASELINE; IGG INFUSED W/ NO CONCERNS; PT SLEPT A FEW HOURS AFTER INFUSION COMPLETION; MORPHINE SULPHATE 1 X THIS SHIFT FOR BREAK THROUGH PAIN; CALL LIGHT IN REACH; BED IN LOWEST POSITION; WILL CONTINUE TO MONITOR CLOSELY UNTIL HAND OFF TO DAY SHIFT RN.
--- NOTE | 2020-12-14 08:45 | NUR ---
INITIAL ASSESSMENT PATIENT ALERT AND ORIENTED X 4, AFEBRILE. PATIENT WEAK BUT ABLE TO GET AROUND WELL IN ROOM. PATIENT BEING GIVEN SCHEDULED AND PRN PAIN MEDICATIONS FOR COMPLAINT OF CHRONIC BACK/ NECK/ SHOULDER PAIN. LUNGS CLEAR IN UPPER LOBES AND DIMINISHED IN LOWER LOBES. PATIENT SOB WITH EXERTION. PATIENT SATTING 90% AND GREATER ON 2 L NC. HR IN THE 60S. SBP IN THE 1-TEENS. GI WNL. WNL. SKIN APPEARS C/D/I. IVS FLUSHED AND SALINE LOCKED. BED LOW, CALL LIGHT IN REACH. WILL CONTINUE TO MONITOR PATIENT FREQUENTLY THROUGHOUT SHIFT.
[2020-12-14] MEDS ORDERED: Voltaren100 GM TOP (08:50)
--- NOTE | 2020-12-14 12:45 | NUR ---
PATIENT AFEBRILE. HR IN THE 60S. SBP IN THE 150S. NO OTHER ACUTE CHANGES TO NOTE ON AT THIS TIME. WILL CONTINUE TO MONITOR.
--- NOTE | 2020-12-14 14:32 | NUR ---
SHIFT SUMMARY PATIENT REMAINED ALERT AND ORIENTED X 4, AFEBRILE. PATIENT GIVEN SCHEDULED AND PRN PAIN MEDICATIONS FOR PAIN IN SHOULDER, NECK AND BACK. PATIENT REMAINS SLIGHTLY WEAK BUT ABLE TO GET AROUND ROOM INDEPENDENTLY. PATIENT REMAINED SATTING 90% AND GREATER ON 2 L NC. HR REMAINED IN THE 60S. SBP 1-TEENS TO 150S. NO BM THIS SHIFT. PATIENT HAD GOOD APPETITE. WNL. NO CHANGES IN SKIN. PATIENT REFUSED BED BATH. PATIENT TO TRANSFER TO MEDICAL FLOOR ROOM 360 SHORTLY.
--- NOTE | 2020-12-14 14:47 | NUR ---
PATIENT SUCCESSFULLY TRANSFERRED TO MEDICAL FLOOR. ALL BELONGINGS SENT WITH PATIENT.
--- NOTE | 2020-12-14 15:35 | NUR ---
TRANSFER PT TRANSFERRED UP FROM ICU, PT ALERT AND ORIENTED, UP INDEP IN THE ROOM, ORIENTED PT TO THE ROOM AND CALL SYSTEM
--- NOTE | 2020-12-14 17:15 | NUR ---
SUMMARY PT SITTING UP IN BED ON HER PHONE, PT HAS BEEN PLEASANT AND COOPERATIVE, DENIES ANY NEW SOB, PLEASANT AND COOPERATIVE WITH CARE, USES THE CALL LIGHT APPROPRIATELY, VSS, WILL CONT TO MONITOR
--- NOTE | 2020-12-15 05:23 | NUR ---
SHIFT SUMMARY: VSS. AFEB. 02 94% ON 2L VIA NC. PT REPORTS ONGOING EXERTIONAL DYSPNEA THAT RESOLVES WITH REST. LSCTA W/ DIM BASES. NO COUGHING. UP INDEPENDENTLY IN ROOM. IV IG INFUSED. PT STATES PAIN IS MANAGED WELL W/ CURRENT MED REGIMEN. NO ACUTE OVERNIGHT EVENTS. WCTM.
--- NOTE | 2020-12-15 17:30 | NUR ---
SHIFT SUMMARY PT IS AOX4. PT MEDICATED FOR PAIN X4 THIS SHIFT PER EMAR. PT DENIES N/V, SOB. PT IS INDEPENDENT IN ROOM. PLAN IS FOR PT TO FINISH X5 DAYS OF IV IG PRIOR TO DC.PT DID NOT HAVE VISITORS THIS MAU. PT APPETITE IS GOOD. PT IS IN ROOM, CALL LIGHT IN REACH, BED IN LOW POSITION.
--- NOTE | 2020-12-16 03:46 | NUR ---
SHIFT SUMMARY: VSS. AFEB. 02 94% ON 2L VIA NC. REPORTS CONTINUED EXERTIONAL DYSPNEA THAT RESOLVES W/ REST. IV IG INFUSED PER ORDERS. STATES SHE IS FEELING BETTER OVERALL TONIGHT. MED X 1 W/PRN IR MORPHINE. HAS BEEN SLEEPING SINCE. A/OX3. COMMUNICATES NEEDS APPROPRIATELY. INDEPENDENT IN ROOM. NO ACUTE EVENTS OVERNIGHT.
--- NOTE | 2020-12-16 18:31 | NUR ---
SHIFT SUMMARY PT AXO, PLEASANT AND COOPERATIVE WITH CARE. PT UP AD MICAELA IN ROOM, INDEPENDENTLY. VS STABLE. MEDICATED FOR PAIN PER EMAR. NO ACUTE CHANGES THIS SHIFT. PT CONTINUES TO BE SOB WITH EXERTION. ON 2L VIA NC 90-97%. IV PATENT AND SALINE LOCKED. BED IN LOW POSITION, CALL LIGHT WITHIN REACH.
--- NOTE | 2020-12-17 03:54 | NUR ---
12/17/20 0230 IV IGG PT REPORTED THAT SHE IS UNABLE TO TOLERATE IV MEDICATION AT THIS TIME D/T INCREASE NAUSEA, GENERAL BODY PAIN, AND MIGRAINE. PT ALREADY GIVEN PRN ZOFRAN, PRN MORPHINE AND PRN SUMATRIPTAN. PT REPORTED THAT SHE HAS GONE THROUGH THIS BEFORE AND SHE IS REQUESTING TO CONTINUE TX IN THE MORNING WHEN SHE IS ABLE TO TOLERATE TX. THIS NURSE REPORTED TO HOSPITALIST DR. EV MD IS OKAY FOR PATIENT TO CONTINUE TX IN THE MORNING AND LONG PHARMACIST IS AWARE. THIS RN SPOKE TO AVERY WEI IN REGARDS TO THE ABOVE, PHARMACIST TOLD THIS NURSE THAT PT OKAY TO RECEIVE REMAINING DOSE OF IV IGG IN THE MORNING.
[2020-12-17 05:40] LABS: Anion Gap 5 mmol/L (6-16); Blood Urea Nitrogen 10 mg/dL (8-24); Bun/Creatinine Ratio 22.3 (12.0-20.0); CO2, Blood 33 mmol/L (21-32); Calcium, Blood 8.9 mg/dL (8.5-10.1); Chloride, Blood 94 mmol/L (98-108); Creatinine, Blood 0.45 mg/dL (0.40-1.00); Glomerular Filtration Rate >60 (60-); Glucose, Blood 124 mg/dL (70-99); Potassium, Blood 3.6 mmol/L (3.5-5.5); Sodium, Blood 132 mmol/L (136-145)
--- NOTE | 2020-12-17 08:30 | NUR ---
IGG ATTEMPTED TO RESUME LAST .25 OF IGG VIAL, PT DECLINED, STATING IT MADE HER SICK, VOMITING AND INCREASED PAIN. PT INDICATED PERHAPS AFTER BREAKFAST, WILL ATTEMPT AGAIN AT THAT TIME.
--- NOTE | 2020-12-17 18:21 | NUR ---
COMPLETED REMAINING IGG IN HUNG VIAL THIS MORNING, PT OPEN TO TAKING LAST VIAL AFTER LUNCH, SHE TOLERATED LAST VIAL FAIRLY WELL, NO EMESIS BUT DID EXPERENCE SOME NAUSEA. DR MOLINA AWARE OF HOW THIS MEDICATION AFFECTS PT. SHE REMAINS SOB WITH ACTIVITY, WEARING 2LNC, UP TO RESTROOM PRN, USING CALL VALERO APPROPRIATELY. NO ACUTE CHANGES NOTED THIS SHIFT, WILL CONTINUE TO MONITOR AND REPORT TO ONCOMING RN.
--- NOTE | 2020-12-18 03:45 | NUR ---
ENDBANDER SUMMARY NO ACUTE CHANGES NOTED TO PATIENT THIS SHIFT. PT A&OX4, ABLE TO MAKE NEEDS KNOWN. PLEASANT AND COOPERATIVE TO CARE. NO C/O PAIN OR ANY DISCOMFORT. NO C/O CP, N&V, CONT TO C/O SOB W/ EXERTION. PT ON 2LPM O2 VIA NC, SATS >92%. PT RESTED IN BED T/O SHIFT. BED AT LOWEST POSITION. CALL LIGHT WITHIN REACH.
[2020-12-18 12:33] LABS: Influenza A, PCR NEGATIVE (NEGATIVE); Influenza B, PCR NEGATIVE (NEGATIVE); Resp Syncytial Virus, PCR NEGATIVE (NEGATIVE); SARS-Cov-2 (COVID-19) PCR, MMC NEGATIVE (NEGATIVE)
--- NOTE | 2020-12-18 14:41 | NUR ---
DISCHARGE DISCHARGE INSTRUCTIONS, MEDICATION LIST AND FOLLOW UP APPOINTMENTS REVIEWED WITH PT. PT INDICATED THAT SHE HAS APPOINTMENTS ALREADY MADE WITH HER PCP AND NEUROLOGIST. PT VERBALLY INDICATED UNDERSTANDING OF ALL INSTRUCTIONS RECEIVED. ESCORTED OUT VIA W/C BY GEOFFREY
[2021-02-13] MEDS ORDERED: Flonase 0.05% N16 GM (14:19)
== END 2020-12-18 14:39 | disposition home or self-care (01) | DRG 56 ==
LOC: ER 13:45 → ICUE 18:15 → ERHOLD 18:15 → ICUE 21:01 → MEDS 12-14 14:50
PROVIDERS: Physician Assistant; ADMIT Internal Medicine
DX: G70.01 Myasthenia gravis with (acute) exacerbation (principal); J96.01 Acute respiratory failure with hypoxia; E27.1 Primary adrenocortical insufficiency; H53.2 Diplopia; Z20.822 Contact with and (suspected) exposure to COVID-19; R13.10 Dysphagia, unspecified; E03.9 Hypothyroidism, unspecified; G89.29 Other chronic pain; K21.9 Gastro-esophageal reflux disease without esophagitis; I10 Essential (primary) hypertension; M81.0 Age-related osteoporosis without current pathological fracture; Z23 Encounter for immunization; Z88.1 Allergy status to other antibiotic agents; Z88.8 Allergy status to other drugs, medicaments and biological substances; Z98.890 Other specified postprocedural states; Z87.891 Personal history of nicotine dependence; Z90.710 Acquired absence of both cervix and uterus
CPT/HCPCS: 0241U; 36415; 80048; 80053; 85025; 96365; 99285-25; A9270; G0008; J1200; J1568; J1650; J1940; J2405; Q2038

== ENCOUNTER 2020-12-28 18:33 | Inpatient (IN) | payer MEDICARE, BC ==
[~2020-12-28] VITALS: Ht 170.2 cm; Wt 109.0 kg
[~2020-12-28 18:33] MED LIST changes: +Voltaren100 GM TOP
[2020-12-28] MEDS ORDERED: TRAZ50 PO (19:02)
[2020-12-28] MEDS ORDERED: METFORMIN HCL500 M2 PO (19:03)
[2020-12-28 19:51] LABS: BASOPHILS ABSOLUTE AUTO 0.01 K/mm3 (0.00-0.23); BASOPHILS PERCENT AUTO 0 % (0-2); EOSINOPHILS ABSOLUTE AUTO 0.07 K/mm3 (0.00-0.68); EOSINOPHILS PERCENT AUTO 2 % (0-6); Hemoglobin 11.1 g/dL (11.5-16.0); IMMATURE GRAN ABSOLUTE AUTO 0.02 K/mm3 (0.00-0.10); IMMATURE GRAN PERCENT AUTO 1 % (0-1); LYMPHOCYTES ABSOLUTE AUTO 0.57 K/mm3 (0.84-5.20); LYMPHOCYTES PERCENT AUTO 14 % (21-46); MONOCYTES ABSOLUTE AUTO 0.27 K/mm3 (0.16-1.47); MONOCYTES PERCENT AUTO 7 % (4-13); Mean Corpuscular HGB 29.1 pg (26.0-34.0); Mean Corpuscular HGB Conc 31.7 g/dL (31.5-36.5); Mean Corpuscular Volume 92 fL (80-100); Mean Platelet Volume 12.1 fL (9.1-12.4); NEUTROPHILS ABSOLUTE AUTO 3.06 K/mm3 (1.96-9.15); NEUTROPHILS PERCENT AUTO 76 % (41-73); Platelet Count 157 K/mm3 (150-400); RDW Coefficient Variation 13.9 % (11.7-14.2); RDW Standard Deviation 47.3 fL (35.1-46.3); Red Blood Cell Count 3.81 M/mm3 (3.80-5.20)
[2020-12-28 19:59] LABS: Anion Gap 2 mmol/L (6-16); Blood Urea Nitrogen 6 mg/dL (8-24); Bun/Creatinine Ratio 12.9 (12.0-20.0); CO2, Blood 36 mmol/L (21-32); Calcium, Blood 9.5 mg/dL (8.5-10.1); Chloride, Blood 100 mmol/L (98-108); Creatinine, Blood 0.46 mg/dL (0.40-1.00); Glomerular Filtration Rate >60 (60-); Glucose, Blood 126 mg/dL (70-99); Potassium, Blood 3.9 mmol/L (3.5-5.5); Sodium, Blood 138 mmol/L (136-145)
--- NOTE | 2020-12-28 22:20 | NUR ---
ASSUMED CARE PT CAME IN FROM ED VIA STRETCHER. PT WAS ABLET O PIVOT FROM STRETCHER TO BED. PT VITALS ARE STABLE AND IS ON 2L OF O2 WITH SATS >92%. PT USES 2L O2 AT HOME AT BEDTIME ONLY. PT DENIES CHEST PAIN AT TIME. ASSESMENT WAS DONE AND MEDICAL HISTORY COLLECTED BY HER. PT STATES THAT REMERON WAS DC'D PER DR AND THAT TRAZADONE WAS PERSCRIBED IN PLACE EFFECTIVE TODAY AT BEDTIME. WILL CONTINUE TO MONITOR PT.
[2020-12-29 03:39] LABS: BASOPHILS ABSOLUTE AUTO 0.01 K/mm3 (0.00-0.23); BASOPHILS PERCENT AUTO 0 % (0-2); EOSINOPHILS ABSOLUTE AUTO 0.09 K/mm3 (0.00-0.68); EOSINOPHILS PERCENT AUTO 3 % (0-6); Hematocrit 32.4 % (33.0-51.0); Hemoglobin 10.3 g/dL (11.5-16.0); IMMATURE GRAN ABSOLUTE AUTO 0.01 K/mm3 (0.00-0.10); IMMATURE GRAN PERCENT AUTO 0 % (0-1); LYMPHOCYTES ABSOLUTE AUTO 0.67 K/mm3 (0.84-5.20); LYMPHOCYTES PERCENT AUTO 20 % (21-46); MONOCYTES ABSOLUTE AUTO 0.32 K/mm3 (0.16-1.47); MONOCYTES PERCENT AUTO 9 % (4-13); Mean Corpuscular HGB 29.5 pg (26.0-34.0); Mean Corpuscular HGB Conc 31.8 g/dL (31.5-36.5); Mean Corpuscular Volume 93 fL (80-100); Mean Platelet Volume 11.3 fL (9.1-12.4); NEUTROPHILS ABSOLUTE AUTO 2.31 K/mm3 (1.96-9.15); NEUTROPHILS PERCENT AUTO 68 % (41-73); Platelet Count 152 K/mm3 (150-400); RDW Standard Deviation 47.5 fL (35.1-46.3); Red Blood Cell Count 3.49 M/mm3 (3.80-5.20); White Blood Cell Count 3.41 K/mm3 (4.00-11.30)
[2020-12-29 03:55] LABS: Anion Gap 1 mmol/L (6-16); Blood Urea Nitrogen 6 mg/dL (8-24); Bun/Creatinine Ratio 12.4 (12.0-20.0); CO2, Blood 38 mmol/L (21-32); Calcium, Blood 8.6 mg/dL (8.5-10.1); Chloride, Blood 98 mmol/L (98-108); Creatinine, Blood 0.48 mg/dL (0.40-1.00); Glomerular Filtration Rate >60 (60-); Glucose, Blood 134 mg/dL (70-99); Potassium, Blood 3.6 mmol/L (3.5-5.5); Sodium, Blood 137 mmol/L (136-145)
--- NOTE | 2020-12-29 06:05 | NUR ---
SHIFT SUMMARY PT IS A/O. PT'S VITALS ARE STABLE WITH SATS OF >92%. PT HAS HAD NO ACUTE CHANGES AND DENIES CHEST PAIN. PT HAD PAIN OF 7/10 THROUGHOUT AND WAS MEDICATED PER EMAR, CHRONIC PAIN MEDICATION ORDER IN PLACE. PT IS ABLE TO USE BSC WITH SBA. IVIG MEDICATION ORDERED PER MD CARRENO FOR MYASTHENIA GRAVIS EXACERBATION; PHARMACY TO MANAGE.
[2020-12-29] MEDS ORDERED: MORPHINE SULFAT15 M1 PO (09:15)
--- NOTE | 2020-12-29 11:43 | NUR ---
[id number] IVIG infusion initiated. Stayed with pt in room for 40 minutes, and she had no adverse symptoms. States that she feels fine, except for mild nausea which has been ongoing since Saturday. States that she feels her strength is coming back. She is very accustomed to receiving IVIG, and knows what symptoms to watch for. Increased infusion rate to 120 cc/hour as instructed, Pt tolerated this well.
[2020-12-29 14:29] LABS: Bilirubin, Urine Neg (Neg); Blood, Urine Neg (Neg); Glucose Qualitative, Urine 2+ (Neg); Ketones, Urine Neg (Neg); Leukocyte Esterase, Urine 1+ (Neg); Nitrite, Urine Neg (Neg); Protein, Urine 1+ (Neg); Source, Urine Clean Catch; Urobilinogen, Urine NORM (Normal)
[2020-12-29 14:37] LABS: Appearance, Urine Clear (Clear); Color, Urine Yellow (P-Yellow); Red Blood Cells, Urine 0-2 /hpf (0-2); Squamous Epithelial Cells Few /hpf (Few)
[2020-12-29 14:38] LABS: Bacteria Few /hpf
--- NOTE | 2020-12-29 18:14 | NUR ---
Pt has been able to get up to BSC with minimal to nearly no assist. Good appetite, eating and drinking without apparent difficulty. States she feels that we are getting control of her chronic pain as well. No other complaints or needs voiced.
--- NOTE | 2020-12-29 19:35 | NUR ---
Bedside report given to Nirav. Pt is cheerful, states she is feeling better.
--- NOTE | 2020-12-29 20:59 | NUR ---
CALLED MESFIN DIPLOMA MAKER REGARDING PT'S HOME MED OF TRAZADONE THAT IS SCHEDULED AT 0600 DAILY BUT SHE NORMALLY TAKES AT BEDTIME. DIPLOMA MAKER ORDERED FOR CHANGE TO BEDTIME.
[2020-12-30 04:33] LABS: Anion Gap 2 mmol/L (6-16); Blood Urea Nitrogen 7 mg/dL (8-24); Bun/Creatinine Ratio 15.1 (12.0-20.0); CO2, Blood 37 mmol/L (21-32); Calcium, Blood 8.9 mg/dL (8.5-10.1); Chloride, Blood 100 mmol/L (98-108); Creatinine, Blood 0.46 mg/dL (0.40-1.00); Glomerular Filtration Rate >60 (60-); Glucose, Blood 96 mg/dL (70-99); Phosphorus, Blood 4.1 mg/dL (2.5-4.9); Potassium, Blood 3.4 mmol/L (3.5-5.5); Sodium, Blood 139 mmol/L (136-145)
--- NOTE | 2020-12-30 05:55 | NUR ---
SHIFT SUMMARY PT IS A/O. VITALS HAVE BEEN STABLE AND SATS OF >92% ON 2L NC. THERE HAS BEEN NO ACUTE CHANGES AND PT DENIES SOB OR CHEST PAIN. REPORTS PAIN OF 8/10 AND HAS BEEN MEDICATED PER ORDERS ON EMAR. PT HAS USED CALL LIGHT APPROPRIATELY WHEN NEEDING HELP. USES BSC WITH SBA.
--- NOTE | 2020-12-31 05:07 | NUR ---
MANAGER ENDOSCOPY SUMMARY THE PT IS AXO X4 THIS SHIFT. THE PT STATES THAT SHE IS GETTING STRONGER AND WAS ABLE TO USE LUCIANO BSC UNASSISTED THIS SHIFT. PT'S O2 SATS >92% ON 2L NC. THE PT HAS C/O LOW BACK AND NECK PAIN W MINIMAL RELIEF W PAIN MEDICATION. THE PT HAS SLEPT FOR MOST OF THE SHIFT ONLY WKING UP TO REQUEST PAIN MEDICATION. BP ELEVATED AT START OF THE SHIFT BUT QUICKLY RESOLVED. VSS, WCTM.
--- NOTE | 2020-12-31 07:42 | NUR ---
ASSUMED CARE FROM [facility] RN PT WAS AWAKE AND PARTICIPATED IN REPORT. PT REPORTS A NEW KNOT IN HER RIGHT SHOULDER, SHE NOTICED IT THIS LAST NIGHT AND STATES THAT UP UNTIL NOW SHE WAS JUST SORE FROM HER 1ST COVID SHOT WHICH WAS OVER A WEEK AGO. PT IS RESTING IN BED AT THIS TIME WAITING FOR BREAKFAST
--- NOTE | 2020-12-31 18:28 | NUR ---
SHIFT SUMMARY PT HAS BEEN INDEPENDENTLY USING THE BSC TODAY, PT IS VERY AWARE OF HER LIMITATIONS. PT REPORTS PAIN IN HER BACK AND NECK. VS HAVE BEEN STABLE, BP SLIGHTLY ELEVATED. PT CURRENTLY RECEIVING IV IgG INFUSION. PT IS RESTING AT THIS TIME IN BED. PT WAS CHANGED FROM PCU STATUS TO MED WITHOUT TELE.
[2021-01-01 04:10] LABS: Anion Gap 2 mmol/L (6-16); Blood Urea Nitrogen 7 mg/dL (8-24); Bun/Creatinine Ratio 14.3 (12.0-20.0); CO2, Blood 35 mmol/L (21-32); Calcium, Blood 8.9 mg/dL (8.5-10.1); Chloride, Blood 99 mmol/L (98-108); Creatinine, Blood 0.49 mg/dL (0.40-1.00); Glomerular Filtration Rate >60 (60-); Glucose, Blood 82 mg/dL (70-99); Magnesium, Blood 2.2 mg/dL (1.6-2.4); Phosphorus, Blood 4.4 mg/dL (2.5-4.9); Potassium, Blood 3.5 mmol/L (3.5-5.5); Sodium, Blood 136 mmol/L (136-145)
--- NOTE | 2021-01-01 04:33 | NUR ---
HARPOON ENGAGEMENT PLANNING OPERATOR SUMMARY THE PT HAS REMAINED AXO X4. THE PT REPORTED FEELING VERY TIRED THIS SHIFT AND HAS SLEPT FOR MAJORITY OF THE NIGHT. THE PT APPEARS TO BE IN LESS PAIN THIS SHIFT COMPARED TO PREVIOS NIGHT SHE HAS NOT REQUESTED ANY PRN PAIN MEDICATION. NO NEW S/S THIS SHIFT. VSS, CAROLINE.
--- NOTE | 2021-01-01 18:27 | NUR ---
SHIFT SUMMARY: NO ACUTE CHANGES T/OUT SHIFT. PT CONTINUES A&OX4, RESP EVEN AND UNLABORED, MAINTAINING O2 SATS >93% ON OXYGEN VIA NC AT 2L/MIN, O2 FLOW TITRATED TO 1 L/MIN AND PT TOLERATING WELL, SR ON MONITOR. IVIG INFUSION CONTINUES, PT TOLERATING WELL. WILL CONTINUE TO MONITOR AND TREAT ACCORDINGLY UNTIL CHANGE OF SHIFT.
--- NOTE | 2021-01-02 04:26 | NUR ---
PRODUCTION SUPPORT SUPERVISOR SUMMARY THE PT HAS REMAINED AXO X4 W NO CHANGES IN MENTATION THIS SHIFT. O2 SATS REMAINED >92% ON 2L VIA NC. IVIG GIVEN W NO S/S OF REACTION. PT CONTINUES TO HAVE SEVERE PAIN IN BACK/NECK REQUIRING PRN PAIN MEDICATION. PT GIVEN ATIVAN THIS SHIFT FOR ANXIETY. PT SLEPT FOR MAJORITY OF THE SHIFT. VSS, WCTM.
--- NOTE | 2021-01-02 18:03 | NUR ---
SUMMARY PT SITTING UP IN BED WATCHING TV, PT HAS BEEN PLEASANT AND COOPERATIVE WITH CARE, PT MED PER EMAR FOR PAIN, PT HAS WORKED WITH PT/OT TODAY, HOPEFUL TO DC HOME WITH HOME HEALTH TOMORROW, PT GETTING HER LAST DOSE OF IVIG TONIGHT, VSS, WILL CONT TO MONITOR
--- NOTE | 2021-01-03 04:43 | NUR ---
MEDICAL IMAGING SPECIALIST SUMMARY PT IS AXO X4 W NO NEW S/S THIS SHIFT. PT SLEPT FOR MAJORITY OF THE SHIFT W CALL LIGHT WITHIN REACH. VSS, WCTM.
[2021-01-03] MEDS ORDERED: LATA.005SO BOTHEYES (11:53)
[2021-01-03] MEDS ORDERED: LIDO700A20 TOP (11:54)
[2021-02-13] MEDS ORDERED: Flonase 0.05% N16 GM (14:19)
== END 2021-01-03 15:05 | disposition home or self-care (01) | DRG 56 ==
LOC: ER 18:33 → PCU 22:15
PROVIDERS: Internal Medicine; Nurse Practitioner Acute Care; Student in an Organized Health Care Education/Training Program; ADMIT Internal Medicine
PROC: 5A09357 Assistance with Respiratory Ventilation, Less than 24 Consecutive Hours, Continuous Positive Airway Pressure (ICD-10-PCS; principal; 2020-12-28)
DX: G70.01 Myasthenia gravis with (acute) exacerbation (principal); J96.22 Acute and chronic respiratory failure with hypercapnia; J96.21 Acute and chronic respiratory failure with hypoxia; E27.1 Primary adrenocortical insufficiency; E03.9 Hypothyroidism, unspecified; K21.9 Gastro-esophageal reflux disease without esophagitis; T45.1X5A Adverse effect of antineoplastic and immunosuppressive drugs, initial encounter; I10 Essential (primary) hypertension; G89.29 Other chronic pain; M79.7 Fibromyalgia; M81.0 Age-related osteoporosis without current pathological fracture; Z88.1 Allergy status to other antibiotic agents; Z88.8 Allergy status to other drugs, medicaments and biological substances; Z79.899 Other long term (current) drug therapy; Z90.89 Acquired absence of other organs; Z90.710 Acquired absence of both cervix and uterus; Z98.890 Other specified postprocedural states; Z87.891 Personal history of nicotine dependence; X58.XXXA Exposure to other specified factors, initial encounter
CPT/HCPCS: 36415; 71045; 80048; 80069; 81001; 83735; 84145; 85025; 87086; 93005; 93010; 94762; 96374; 97116; 97161; 97165; 97530; 97535; 99285-25; A9270; J1568; J1650; J2405

== ENCOUNTER 2021-01-11 17:20 | Emergency (ER) | payer MEDICARE, BC ==
[~2021-01-11] VITALS: Ht 170.2 cm; Wt 99.8 kg
[~2021-01-11 17:20] MED LIST changes: +LATA.005SO BOTHEYES; +LIDO700A20 TOP; +METFORMIN HCL500 M2 PO; +MORPHINE SULFAT15 M1 PO; +TRAZ50 PO
[2021-01-11] MEDS ORDERED: BRIMONIDINE TART5 M1 BOTHEYES (17:58)
[2021-01-11] MEDS ORDERED: ALBU90OI INH (17:59)
[2021-02-13] MEDS ORDERED: Flonase 0.05% N16 GM (14:19)
== END 2021-01-11 19:55 | disposition home or self-care (01) ==
LOC: ER 17:20
DX: H53.2 Diplopia (principal); G70.00 Myasthenia gravis without (acute) exacerbation; I10 Essential (primary) hypertension; K21.9 Gastro-esophageal reflux disease without esophagitis; E03.9 Hypothyroidism, unspecified; Z87.891 Personal history of nicotine dependence; Z79.899 Other long term (current) drug therapy; Z88.8 Allergy status to other drugs, medicaments and biological substances
CPT/HCPCS: 70450; 99284-25

== ENCOUNTER 2021-03-04 15:14 | Emergency (ER) | payer MEDICARE, BC ==
[~2021-03-04] VITALS: Ht 170.2 cm; Wt 102.1 kg
[~2021-03-04 15:14] MED LIST changes: +ALBU90OI INH; +BRIMONIDINE TART5 M1 BOTHEYES
[2021-03-04 15:49] LABS: BASOPHILS ABSOLUTE AUTO 0.01 K/mm3 (0.00-0.23); BASOPHILS PERCENT AUTO 0 % (0-2); EOSINOPHILS ABSOLUTE AUTO 0.04 K/mm3 (0.00-0.68); EOSINOPHILS PERCENT AUTO 1 % (0-6); Hematocrit 38.2 % (33.0-51.0); Hemoglobin 11.9 g/dL (11.5-16.0); IMMATURE GRAN ABSOLUTE AUTO 0.03 K/mm3 (0.00-0.10); IMMATURE GRAN PERCENT AUTO 1 % (0-1); LYMPHOCYTES ABSOLUTE AUTO 0.74 K/mm3 (0.84-5.20); LYMPHOCYTES PERCENT AUTO 13 % (21-46); MONOCYTES ABSOLUTE AUTO 0.36 K/mm3 (0.16-1.47); MONOCYTES PERCENT AUTO 6 % (4-13); Mean Corpuscular HGB 28.7 pg (26.0-34.0); Mean Corpuscular HGB Conc 31.2 g/dL (31.5-36.5); Mean Corpuscular Volume 92 fL (80-100); Mean Platelet Volume 10.8 fL (9.1-12.4); NEUTROPHILS PERCENT AUTO 80 % (41-73); Platelet Count 218 K/mm3 (150-400); RDW Coefficient Variation 14.6 % (11.7-14.2); RDW Standard Deviation 49.5 fL (35.1-46.3); Red Blood Cell Count 4.14 M/mm3 (3.80-5.20); White Blood Cell Count 5.88 K/mm3 (4.00-11.30)
[2021-03-04 16:08] LABS: Alanine Aminotransfer (ALT/SGP 22 U/L (12-78); Albumin, Blood 3.7 g/dL (3.4-5.0); Albumin/Globulin Ratio 0.6 (0.8-1.8); Alk Phos 100 U/L (50-136); Anion Gap 1 mmol/L (6-16); Aspartate Aminotrans (AST/SGOT 22 U/L (12-37); Bilirubin, Total 0.2 mg/dL (0.1-1.0); Blood Urea Nitrogen 9 mg/dL (8-24); Bun/Creatinine Ratio 18.1 (12.0-20.0); CO2, Blood 33 mmol/L (21-32); Calcium, Blood 8.6 mg/dL (8.5-10.1); Chloride, Blood 99 mmol/L (98-108); Globulin, Blood 6.4 g/dL (2.2-4.0); Glomerular Filtration Rate >60 (60-); Glucose, Blood 126 mg/dL (70-99); Sodium, Blood 133 mmol/L (136-145); Total Protein, Blood 10.1 g/dL (6.4-8.2)
== END 2021-03-04 16:34 | disposition home or self-care (01) ==
LOC: ER 15:14
PROVIDERS: Emergency Medicine
DX: R51.9 Headache, unspecified (principal); G70.00 Myasthenia gravis without (acute) exacerbation; I10 Essential (primary) hypertension; K21.9 Gastro-esophageal reflux disease without esophagitis; Z88.1 Allergy status to other antibiotic agents; Z88.8 Allergy status to other drugs, medicaments and biological substances; Z88.0 Allergy status to penicillin; Z79.899 Other long term (current) drug therapy; Z87.891 Personal history of nicotine dependence
CPT/HCPCS: 80053; 85025; 96374; 96376; 99284-25; J1170; J7030

== ENCOUNTER 2021-03-04 16:50 | Emergency (ER) | payer MEDICARE, BC ==
[~2021-03-04] VITALS: Ht 170.2 cm; Wt 102.1 kg
== END 2021-03-04 20:33 | disposition home or self-care (01) ==
LOC: ER 16:50
DX: R51.9 Headache, unspecified (principal); R11.2 Nausea with vomiting, unspecified; E03.9 Hypothyroidism, unspecified; I10 Essential (primary) hypertension; Z88.1 Allergy status to other antibiotic agents; Z88.8 Allergy status to other drugs, medicaments and biological substances; Z88.0 Allergy status to penicillin; Z79.899 Other long term (current) drug therapy; Z87.891 Personal history of nicotine dependence
CPT/HCPCS: 36415; 70450; 71045; 83880; 84484; 96374; 96375; 99284-25; A9270; J1170; J1200; J2765; J7030

== ENCOUNTER 2021-03-09 06:00 | Day surgery (SDC) | payer MEDICARE, BC ==
[~2021-03-09] VITALS: Ht 154.9 cm; Wt 102.2 kg
--- NOTE | 2021-03-09 08:44 | NUR ---
03/09/21 0844 TORRIEEVA RODRIGUEZ ALL COUNTS CORRECT.
--- NOTE | 2021-03-09 09:14 | NUR ---
INTO STEP FROM PACU RECIEVED PATIENT AND REPORT FROM CHAVO CASILLAS. VSS
--- NOTE | 2021-03-09 10:15 | NUR ---
VSS PATIENT READY TO LEAVE BRAKE OPERATOR HEAVY DUTY CALLED AND IS ON WAY HERE. Discharge instructions reviewed with patient. Patient verbalizes understanding. Copy given to patient to take home. Patient States Post-Procedure ride home has been arranged. Discharged via wheelchair to private car for ride home.
== END 2021-03-09 10:20 | disposition home or self-care (01) ==
LOC: ORSCMMR 06:00 → ORD 07:30 → ORSCMMR 10:20
DX: G70.00 Myasthenia gravis without (acute) exacerbation (principal); I10 Essential (primary) hypertension; K21.9 Gastro-esophageal reflux disease without esophagitis; E03.9 Hypothyroidism, unspecified; J45.909 Unspecified asthma, uncomplicated; Z87.891 Personal history of nicotine dependence; E66.01 Morbid (severe) obesity due to excess calories; Z68.41 Body mass index [BMI] 40.0-44.9, adult
CPT/HCPCS: 77001; C1788; J0690; J1100; J1642; J2250; J2370; J2405; J2704; J3010; J7120

== ENCOUNTER 2021-05-25 21:10 | Inpatient (IN) | payer MEDICARE, BC ==
[~2021-05-25] VITALS: Ht 157.5 cm; Wt 104.3 kg
[2021-05-25 22:31] LABS: BASOPHILS ABSOLUTE AUTO 0.01 K/mm3 (0.00-0.23); BASOPHILS PERCENT AUTO 0 % (0-2); EOSINOPHILS ABSOLUTE AUTO 0.06 K/mm3 (0.00-0.68); EOSINOPHILS PERCENT AUTO 1 % (0-6); Hematocrit 40.5 % (33.0-51.0); Hemoglobin 13.3 g/dL (11.5-16.0); IMMATURE GRAN ABSOLUTE AUTO 0.01 K/mm3 (0.00-0.10); IMMATURE GRAN PERCENT AUTO 0 % (0-1); LYMPHOCYTES ABSOLUTE AUTO 1.02 K/mm3 (0.84-5.20); LYMPHOCYTES PERCENT AUTO 21 % (21-46); MONOCYTES ABSOLUTE AUTO 0.35 K/mm3 (0.16-1.47); MONOCYTES PERCENT AUTO 7 % (4-13); Mean Corpuscular HGB 29.5 pg (26.0-34.0); Mean Corpuscular HGB Conc 32.8 g/dL (31.5-36.5); Mean Corpuscular Volume 90 fL (80-100); Mean Platelet Volume 10.8 fL (9.1-12.4); NEUTROPHILS ABSOLUTE AUTO 3.41 K/mm3 (1.96-9.15); NEUTROPHILS PERCENT AUTO 70 % (41-73); Platelet Count 192 K/mm3 (150-400); RDW Coefficient Variation 14.3 % (11.7-14.2); Red Blood Cell Count 4.51 M/mm3 (3.80-5.20); White Blood Cell Count 4.86 K/mm3 (4.00-11.30)
[2021-05-25 22:49] LABS: Alanine Aminotransfer (ALT/SGP 28 U/L (12-78); Albumin, Blood 3.5 g/dL (3.4-5.0); Albumin/Globulin Ratio 0.5 (0.8-1.8); Alk Phos 87 U/L (50-136); Anion Gap 1 mmol/L (6-16); Aspartate Aminotrans (AST/SGOT 26 U/L (12-37); Bilirubin, Total 0.2 mg/dL (0.1-1.0); Blood Urea Nitrogen 8 mg/dL (8-24); Bun/Creatinine Ratio 16.9 (12.0-20.0); CO2, Blood 33 mmol/L (21-32); Calcium, Blood 8.8 mg/dL (8.5-10.1); Chloride, Blood 101 mmol/L (98-108); Creatinine, Blood 0.47 mg/dL (0.40-1.00); Globulin, Blood 6.9 g/dL (2.2-4.0); Glomerular Filtration Rate >60 (60-); Glucose, Blood 98 mg/dL (70-99); Potassium, Blood 3.7 mmol/L (3.5-5.5); Sodium, Blood 135 mmol/L (136-145); Total Protein, Blood 10.4 g/dL (6.4-8.2)
[2021-05-26 06:44] LABS: Anion Gap 2 mmol/L (6-16); Blood Urea Nitrogen 7 mg/dL (8-24); Bun/Creatinine Ratio 12.6 (12.0-20.0); CO2, Blood 32 mmol/L (21-32); Calcium, Blood 8.1 mg/dL (8.5-10.1); Chloride, Blood 101 mmol/L (98-108); Creatinine, Blood 0.55 mg/dL (0.40-1.00); Glomerular Filtration Rate >60 (60-); Glucose, Blood 85 mg/dL (70-99); Potassium, Blood 3.5 mmol/L (3.5-5.5); Sodium, Blood 135 mmol/L (136-145)
--- NOTE | 2021-05-26 06:50 | NUR ---
SHIFT SUMMARY ARRIVED TO MEDICAL FLOOR VIA GURNEY; MINIMAL ASSISTANCE WITH TRANSFER. ORIENTED TO ROOM AND CALL SYSTEM. A/O, ABLE TO MAKE NEEDS KNOWN. COOPERATIVE WITH CARE. CALLS AND ANSWERS QUESTIONS APPROPRIATELY. C/O PAIN/DISCOMFORT; MEDICATED PER EMAR. CURRENTLY ON 2L VIA NC; STATES WEARS AT HS. LUNGS DIMINISHED T/O. NO OTHER ACUTE CHANGES NOTED SINCE ARRIVAL. BED IN LOWEST POSITION. CALL LIGHT AND BELONGINGS WITHIN REACH. CONTINUE WITH CURRENT PLAN OF CARE. REPORT TO ONCOMING RN.
[2021-05-26] MEDS ORDERED: TIZA4 PO (17:21)
--- NOTE | 2021-05-26 18:01 | NUR ---
PATIENT A/OX4, UP WITH SBA TO BSC. CONTINENT OF URINE/STOOL. IVIG GIVEN THIS AM, VSS THROUGHOUT THE DAY. CHRONIC BACK AND NECK PAIN, MS CONTIN SCHEDULED AND PRN. 2LO2 CONTINUOUSLY TO MAINTAIN SATS, 2LO2 AT NOC AT BASELINE. TOLERATING REGULAR DIET. CALM AND COOPERATIVE WITH CARE, CALLS APPROPRIATELY FOR ASSISTANCE.
[2021-05-26] MEDS ORDERED: PYRI60 PO (19:03)
--- NOTE | 2021-05-27 04:54 | NUR ---
SHIFT SUMMARY A/O, ABLE TO MAKE NEEDS KNOWN. COOPERATIVE WITH CARE. CALLS AND ANSWERS QUESTIONS APPROPRIATELY. C/O PAIN/DISCOMFORT; MEDICATED PER EMAR. NO ACUTE CHANGES NOTED OVERNIGHT. APPEARED TO REST WELL. UP 1P ASSIST TO BSC /c FWW. BED REMAINS IN LOWEST POSITION. CALL LIGHT AND BELONGINGS WITHIN REACH. CONTINUE WITH CURRENT PLAN OF CARE. REPORT TO ONCOMING RN.
--- NOTE | 2021-05-27 18:37 | NUR ---
SHIFT SUMMARY PATIENT IS ALERT AND ORIENTED AND SITTING IN BED. SHE IS A ONE PERSON ASSIST TO THE BATHROOM WITH A FWW. SHE HAS BEEN TOLERATING HER MORNING IG INFUSIONS. PATIENT IS VERY KNOWLEDGABLE ABOUT HER MEDICATIONS. SHE HAS PAIN "ALL OVER" THAT IS MANAGED BY BOTH HER MUSCLE RELAXERS AND MORPHINE AND IS VERY GOOD ABOUT CALLING WHEN SHE HAS PAIN OR NEEDS TO GET UP. SHE DENIES DIZZINESS OR SHORTNESS OF BREATH.
--- NOTE | 2021-05-28 04:25 | NUR ---
BOW REHAIRER SUMMARY AWAKE AT INTERVALS, WITH C/O PAIN. SEE MAR FOR DETAILS RE MEDICATIONS ADMINISTERED, AFFECT PLEASANT. CALL LIGHT IN REACH.
--- NOTE | 2021-05-28 18:00 | NUR ---
A/O, ABLE TO MAKE NEEDS KNOWN AND WOULD LIKE HER MEDICATIONS READ BACK TO HER WHEN GIVEN. SHE CALLS APPROPRIATELY. C/O PAIN AND DISCOMFORT AND IS MEDICATED ACCORDING TO EMAR. UP 1P ASSIST TO BATHROOM WITH FWW, BUT USES COMMODE WHEN LEGS ARE TIRED. WAS UP FOR A SHOWER TODAY. TOMORROW HOPEFUL TO DISCHARGE FOLLOWING LAST IG INFUSION ACCORDING TO PATIENT PLAN WITH
--- NOTE | 2021-05-29 05:27 | NUR ---
SUMMARY: PT A/OX4, SPECIFIES NEEDS AND IS PLEASANT/COOPERATIVE W/CARE. SHE'S 1PA/INDEPENDENT IN ROOM AND AWARE OF LIMITATIONS SO CALLS FOR ASSIST PRN. PT USES FWW TO AMBULATE TO RESTROOM OR BSC TOLERATED D/T INCREASED WEAKNESS FROM BASELINE FROM MYESTHENIA GRAVIS. SHE REPORTS "ALL OVER" PAIN W/PRN MSIR AND SCHEDULED MS CONTIN PROVIDING TOLERABLE RELIEF. LAST IV IG INFUSION TO BE RECIEVED TODAY THEN PT IS PROBABLE D/C. NO ACUTE CHANGES, VSS/AFEBRILE. WCTM AND REPORT TO DAY RN.
--- NOTE | 2021-05-29 16:33 | NUR ---
SHIFT SUMMARY. A&OX4, INDEPENDENT TO BSC WITH FWW, PLEASANT AND COOPERATIVE WITH CARE. IGM THERAPY GIVEN TODAY WITHOUT ISSUE. PT REPORTS CHRONIC GENERALIZED PAIN THAT HAS BEEN MANAGED WELL WITH CURRENT ORDERS. NO N/V, SOB. CONTINUES WITH 2L O2 NC. NO OTHER CHANGES OR CONCERNS.
--- NOTE | 2021-05-30 03:54 | NUR ---
SHIFT SUMMARY ADMITTED FOR MYASTHENIA GRAVIS. FULL CODE. I DID GIVE HER PAIN MEDICATION THIS SHIFT. NO NEW CONCERNS THIS SHIFT.
--- NOTE | 2021-05-30 07:30 | NUR ---
ASSUMED CARE: PT RESTING QUIETLY WITH 2L O2 IN PLACE. NO FURTHER NEEDS AT THIS TIME.
--- NOTE | 2021-05-30 08:00 | NUR ---
IGG STARTED WITH SECOND RN VERIFYING DOSE AFTER PHARMACY SENT INSTRUCTIONS FOR ADMINISTRATION. PT DENIES ADVERSE EFFECTS AT THIS TIME. VSS
[2021-05-30] MEDS ORDERED: LATA.005SO BOTHEYES (11:22)
[2021-05-30] MEDS ORDERED: PREDNISOLO15 MG/5 ML BOTHEYES (11:23)
[2021-05-30] MEDS ORDERED: TIMO10T BOTHEYES (11:23)
[2021-05-30] MEDS ORDERED: Vitamin D2000 UNIT PO (11:24)
--- NOTE | 2021-05-30 12:09 | NUR ---
PT TO DC HOME BUT ORDERS STATE FOR O2 24 HOURS AND CURRENT ORDER IS BEDTIME. CALL TO DC PLANNING WHO CALLED SHER WHO SAID THAT THEY NEED A NEW ORDER. RT AWARE AND PERFORMING EVALUATION. DR MILAN AWARE OF DELAY IN DISCHARGE
--- NOTE | 2021-05-30 14:26 | NUR ---
DISCUSSED DISCHARGE INSTRUCTIONS WITH PT REGARDING MEDS AND F/U APPOINTMENTS. IV DC'D WNL. PT DENIED NEEDS OR CONCERNS AFTER HOME O2 EVALUATION COMPLETED. ESCORTED OUT VIA WHEEL CHAIR BY HOSPITAL STAFF
== END 2021-05-30 13:37 | disposition home health service (06) | DRG 56 ==
LOC: ER 21:10 → MEDS 05-26 02:59
PROVIDERS: Emergency Medicine; Family Medicine; ADMIT Internal Medicine
DX: G70.01 Myasthenia gravis with (acute) exacerbation (principal); J96.01 Acute respiratory failure with hypoxia; E27.1 Primary adrenocortical insufficiency; Z68.41 Body mass index [BMI] 40.0-44.9, adult; D47.2 Monoclonal gammopathy; G89.29 Other chronic pain; K21.9 Gastro-esophageal reflux disease without esophagitis; E03.9 Hypothyroidism, unspecified; I10 Essential (primary) hypertension; H40.9 Unspecified glaucoma; M79.7 Fibromyalgia; M81.0 Age-related osteoporosis without current pathological fracture; Z90.710 Acquired absence of both cervix and uterus; Z98.890 Other specified postprocedural states; Z88.1 Allergy status to other antibiotic agents; Z88.8 Allergy status to other drugs, medicaments and biological substances; Z79.899 Other long term (current) drug therapy; J45.909 Unspecified asthma, uncomplicated; E66.9 Obesity, unspecified; Z87.891 Personal history of nicotine dependence
CPT/HCPCS: 36415; 71046; 80048; 80053; 84439; 84443; 85025; 94761; 94762; 96374; 97110; 97116; 97162; 97165; 97535; 99285-25; A9270; J1568; J1650; J2405

== ENCOUNTER 2021-09-21 13:41 | Inpatient (IN) | payer MEDICARE, BC ==
[~2021-09-21] VITALS: Ht 157.5 cm; Wt 100.3 kg
[~2021-09-21 13:41] MED LIST changes: +PREDNISOLO15 MG/5 ML BOTHEYES; +TIMO10T BOTHEYES; +Vitamin D2000 UNIT PO
[2021-09-21 14:13] LABS: BASOPHILS ABSOLUTE AUTO 0.01 K/mm3 (0.00-0.23); BASOPHILS PERCENT AUTO 0 % (0-2); EOSINOPHILS ABSOLUTE AUTO 0.08 K/mm3 (0.00-0.68); EOSINOPHILS PERCENT AUTO 2 % (0-6); Hemoglobin 11.4 g/dL (11.5-16.0); IMMATURE GRAN ABSOLUTE AUTO 0.01 K/mm3 (0.00-0.10); IMMATURE GRAN PERCENT AUTO 0 % (0-1); LYMPHOCYTES ABSOLUTE AUTO 0.88 K/mm3 (0.84-5.20); LYMPHOCYTES PERCENT AUTO 24 % (21-46); MONOCYTES ABSOLUTE AUTO 0.25 K/mm3 (0.16-1.47); MONOCYTES PERCENT AUTO 7 % (4-13); Mean Corpuscular HGB 29.9 pg (26.0-34.0); Mean Corpuscular HGB Conc 31.7 g/dL (31.5-36.5); Mean Corpuscular Volume 95 fL (80-100); Mean Platelet Volume 10.8 fL (9.1-12.4); NEUTROPHILS ABSOLUTE AUTO 2.45 K/mm3 (1.96-9.15); NEUTROPHILS PERCENT AUTO 67 % (41-73); Platelet Count 176 K/mm3 (150-400); RDW Coefficient Variation 13.4 % (11.7-14.2); RDW Standard Deviation 46.9 fL (35.1-46.3); Red Blood Cell Count 3.81 M/mm3 (3.80-5.20); White Blood Cell Count 3.68 K/mm3 (4.00-11.30)
[2021-09-21 14:42] LABS: Alanine Aminotransfer (ALT/SGP 29 U/L (12-78); Albumin, Blood 3.5 g/dL (3.4-5.0); Albumin/Globulin Ratio 0.6 (0.8-1.8); Alk Phos 87 U/L (50-136); Anion Gap 3 mmol/L (6-16); Aspartate Aminotrans (AST/SGOT 26 U/L (12-37); Bilirubin, Total 0.2 mg/dL (0.1-1.0); Blood Urea Nitrogen 6 mg/dL (8-24); Bun/Creatinine Ratio 13.5 (12.0-20.0); CO2, Blood 38 mmol/L (21-32); Calcium, Blood 8.5 mg/dL (8.5-10.1); Chloride, Blood 95 mmol/L (98-108); Creatinine, Blood 0.44 mg/dL (0.40-1.00); Globulin, Blood 5.4 g/dL (2.2-4.0); Glomerular Filtration Rate >60 (60-); Glucose, Blood 126 mg/dL (70-99); Potassium, Blood 3.6 mmol/L (3.5-5.5); Sodium, Blood 136 mmol/L (136-145); Total Protein, Blood 8.9 g/dL (6.4-8.2); Troponin I <0.015 ng/mL (0.000-0.040)
[2021-09-21 15:16] LABS: Influenza A, PCR NEGATIVE (NEGATIVE); Influenza B, PCR NEGATIVE (NEGATIVE); Resp Syncytial Virus, PCR NEGATIVE (NEGATIVE); SARS-Cov-2 (COVID-19) PCR, MMC NEGATIVE (NEGATIVE)
[2021-09-21 16:34] LABS: Base Excess Venous 10.3 mmol/L; Bicarbonate Venous 31.4 mmol/L (24.0-30.0); PCO2 Venous 72.9 mmHg (38-42); PO2 Venous 50.8 mmHg (38-42); pH Blood Venous 7.31 (7.34-7.37)
--- NOTE | 2021-09-21 18:42 | NUR ---
RECEIVED PT FROM ED AT APPROX 1745. PT A/OX4, ALBA, HAS TREMORS/SPASTICITY TO EXTREMITIES. ABLE TO AMBULATE WITH MIN ASSIST TO BED, THEN TO BSC. PT VOIDED X 1. PT REPORTS CHRONIC PAIN TO BACK AND LEGS. PLAN FOR IVIG TONIGHT WHEN IVIG HAS REACHED ROOM TEMPERATURE FOR ADMINISTRATION. THIS RN ATTEMPTED TO PLACE SECOND IV, UNABLE TO ADVANCE CATHETER; DOCUMENT CONTROL CLERK ATTEMPT IV X 2, UNABLE TO THREAD CATHETER. MD GAITAN CALLED, STATES OKAY TO ACCESS PORT IF UNABLE TO OBTAIN IV ACCESS. DISCUSSED RISKS OF INFECTION WITH PT, PT VERBALIZES UNDERSTANDING. REPORT OFF TO NOC SHIFT.
[2021-09-22 04:17] LABS: Anion Gap 0 mmol/L (6-16); Blood Urea Nitrogen 6 mg/dL (8-24); Bun/Creatinine Ratio 14.3 (12.0-20.0); CO2, Blood 37 mmol/L (21-32); Calcium, Blood 8.4 mg/dL (8.5-10.1); Chloride, Blood 100 mmol/L (98-108); Creatinine, Blood 0.42 mg/dL (0.40-1.00); Glomerular Filtration Rate >60 (60-); Glucose, Blood 96 mg/dL (70-99); Potassium, Blood 3.2 mmol/L (3.5-5.5); Sodium, Blood 137 mmol/L (136-145)
--- NOTE | 2021-09-22 07:48 | NUR ---
ASSUMED PT CARE THIS AM. PT AWAKE, ALERT AND ORIENTED X4. SOME SPASITICITY NOTED TO B HANDS AND PT NOTES SHE HAS BEEN HAVING DIFFICULTY WITH HER COUNTER ROLLER. PT GIVEN 0600 MEDS WITH SIP OF WATER, NO ISSUES WITH SWALLOWING. PT REPORTS HUNGER. PT NOW RECEIVING FINAL BOTTLE OF IVIG FOR 100 GRAMS TOTAL. K TO BE REPLACED, K LEVEL 3.2. PT REFUSING BIPAP ALL NOC PER REPORT. PORT WAS ACCESSED LAST NIGHT DUE TO NEED FOR IV ACCESS. MD INFORMED OF PT STATUS AND THAT PT WOULD LIKE TO EAT IF POSSIBLE. IN TO MARIA ANTONIA.
--- NOTE | 2021-09-22 13:03 | NUR ---
Pt. was resting. Confirmed with ICU desk, that I would return. Returned after lunch and pt. is still in a deep sleep. Will return before end of the day.
--- NOTE | 2021-09-22 14:32 | NUR ---
Pt. was resting but responsive to my visit. ICU recommended I rouse her as they had just attended to her. Pt. verbalized some skepticism on the purpose of her affliction. After theraputic listening we explored sources of meaning and purpose. Though her support system is limited, pt. had clarity about her role in self care. When I left pt. was encouraged and demonstrated a spirit of gratitude. Prayed with pt. I will follow up on pt., as they expect to still be admitted next week.
--- NOTE | 2021-09-22 17:38 | NUR ---
PT A/OX4, AWAKE AND ALERT T/O SHIFT. ALBA, IMPROVED STRENGTH TODAY, NO TREMORING/SPASTICITY NOTED SHIFT PROGRESSES. MD IN TO EVAL PT, PT DOWNGRADED TO MEDICAL STATUS WITHOUT TELE. VSS. AFEBRILE. K REPLACED. PT VOIDING PER BSC WITH MIN ASSIST FOR TRANSFERS. PT ABLE TO TOLERATE PO DIET, ALTHOUGH LOW APPETITE, NO ISSUES WITH NAUSEA. PRN ANALGESIA GIVEN X2.
--- NOTE | 2021-09-22 19:08 | NUR ---
ASSUMED PT CARE AT 1900 PT ALERT AND ORIENTED; SITTING UP ON BEDSIDE COMMODE. ABLE TO MAKE NEEDS KNOWN. PLEASANT AND COOPERATIVE WITH CARES. PT NOTED TO BE SOB WITH EXERTION WHEN TRANSFERRING BACK INTO BED. PT REMAINS AT BASELINE OF 2L OF OXYGEN. PT STATES SHE IS FEELING STRONGER THAN SHE DID YESTERDAY. SALINE LOCKED AT THIS TIME; HOWEVER, MEDIPORT REMAINS ACCESSED. CALL LIGHT WITHIN REACH.
--- NOTE | 2021-09-23 01:04 | NUR ---
REASSESSMENT PT C/O "BLURRY/TRIPLE VISION". PT STATES SHE WILL OPEN HER EYES AND SEE NOTHING BUT BLACK/BLANKNESS, CLOSE THEM AND REOPEN THEM TO SEEING TRIPLES OF EVERYTHING. PT STATES IT ISN'T ANYTHING SHE'S EXPERIENCED BEFORE. SIDE EFFECTS OF MEDICATIONS GONE OVER WITH PATIENT; PT STATED SHE HAS BEEN ON THESE MEDS FOR A LONG TIME AND HAS NEVER HAD THIS EXPERIENCE BEFORE. ENCOURAGED PT TO GET SOME SLEEP AND WE WOULD REASSESS IN THE MORNING. PUPILS NOTED TO BE EQUAL AND ROUND AT 3MM, AND REACTIVE TO LIGHT.
--- NOTE | 2021-09-23 05:28 | NUR ---
END OF SHIFT SUMMARY PT HAS REMAINED PLEASANT AND COOPERATIVE WITH CARES THIS SHIFT. UTILIZES CALL LIGHT APPROPRIATELY. REMAINS ON 2L OF OXYGEN VIA NC; WITH O2 SATS >90%. PT ABLE TO REPOSITION SELF IN BED. ASSIST NEEDED FOR TRANSFERS TO BS. PT WOULD LIKE TO DISCUSS MEDICATIONS WITH ROUNDING PHYSICIAN TODAY. WILL CONTINUE TO MONITOR UNTIL REPORT IS HANDED OFF TO ONCOMING RN.
[2021-09-23 05:55] LABS: BASOPHILS ABSOLUTE AUTO 0.01 K/mm3 (0.00-0.23); BASOPHILS PERCENT AUTO 0 % (0-2); EOSINOPHILS ABSOLUTE AUTO 0.08 K/mm3 (0.00-0.68); EOSINOPHILS PERCENT AUTO 3 % (0-6); Hematocrit 36.9 % (33.0-51.0); Hemoglobin 11.8 g/dL (11.5-16.0); IMMATURE GRAN ABSOLUTE AUTO 0.01 K/mm3 (0.00-0.10); IMMATURE GRAN PERCENT AUTO 0 % (0-1); LYMPHOCYTES ABSOLUTE AUTO 1.09 K/mm3 (0.84-5.20); LYMPHOCYTES PERCENT AUTO 36 % (21-46); MONOCYTES ABSOLUTE AUTO 0.35 K/mm3 (0.16-1.47); MONOCYTES PERCENT AUTO 12 % (4-13); Mean Corpuscular HGB 29.6 pg (26.0-34.0); Mean Corpuscular Volume 93 fL (80-100); Mean Platelet Volume 10.5 fL (9.1-12.4); NEUTROPHILS ABSOLUTE AUTO 1.46 K/mm3 (1.96-9.15); NEUTROPHILS PERCENT AUTO 49 % (41-73); Platelet Count 187 K/mm3 (150-400); RDW Coefficient Variation 13.4 % (11.7-14.2); RDW Standard Deviation 46.1 fL (35.1-46.3); Red Blood Cell Count 3.99 M/mm3 (3.80-5.20)
[2021-09-23 06:26] LABS: Anion Gap 2 mmol/L (6-16); Blood Urea Nitrogen 6 mg/dL (8-24); Bun/Creatinine Ratio 13.5 (12.0-20.0); CO2, Blood 35 mmol/L (21-32); Calcium, Blood 8.6 mg/dL (8.5-10.1); Chloride, Blood 101 mmol/L (98-108); Creatinine, Blood 0.45 mg/dL (0.40-1.00); Glomerular Filtration Rate >60 (60-); Glucose, Blood 91 mg/dL (70-99); Potassium, Blood 3.2 mmol/L (3.5-5.5); Sodium, Blood 138 mmol/L (136-145)
--- NOTE | 2021-09-23 08:41 | NUR ---
ASSUMED PT CARE THIS AM. PT A/NICOLE, VSS, ON 2 LNC PER BASELINE. PT IN GOOD SPIRITS. MD IN TO SPEAK WITH PT REGARDING POC, AND CHANGES TO MEDICATION REGIMEN. PT DENIES N/V OR SOB AT REST. PT EATING BREAKFAST. HAS BEEN USING BSC FOR VOIDING WITHOUT ISSUE.
--- NOTE | 2021-09-23 17:22 | NUR ---
SHIFT SUMMARY PT A/OXIvon, PARTH, MIN ASSIST WHEN [place]SFERRING [place] [facility] PAIN MEDICATIONS ADJUSTED TODAY BY MD AT PT'S REQUEST TO MATCH HER HOME MEDICATION REGIMEN. PT STATES PAIN NOW WELL CONTROLLED. ON 2 LNC THROUGHOUT SHIFT, MILD SALAZAR, RESOLVES WITH REST. SATS 93% ON RA, HOWEER PT REPORTS DYSPNEA WITHOUT 2LNC. NON PRODUCTIVE OCCASIONAL COUGH. IMPROVED APPETITE. GOOD UO. PT REFUSING TO SIT IN CHAIR TODAY AND ALSO DECLINES BED BATH T/O SHIFT. STATES SHE WILL LET US KNOW IF SHE CHANGES HER MIND. PLAN FOR ANOTHER ROUND OF IVIG TONIGHT AT 2100.
--- NOTE | 2021-09-23 18:16 | NUR ---
SHIFT SUMMARY PT SLEPT DURING THE MORNING, CIWA SCORES IMPROVED FROM 21 TO 12 BY END OF SHIFT. PRECDEX GTT AT 0.3. PT REMAINS ORIENTED ONLY X1-2, BUT FOLLOWING COMMANDS AND LESS HALLUCINATIONS AND AGITATION BY END OF SHIFT. PHY THERAPY AND RN ABLE TO ASSIST PT TO WALK IN ROOM WITH FWW AND GAIT BELT. TOLERATED WELL. VSS EXCEPT SB WHILE ASLEEP. LIBRIUM 50MG GIVEN X 3. PT TOLERATING PO INTAKE WITH SUPERVISION. GOOD UO VIA CONDOM CATH.
--- NOTE | 2021-09-23 21:12 | NUR ---
ASSUMED PT CARE AT 1900 PT RESTING IN BED. ALERT AND ORIENTED AND ABLE TO MAKE NEEDS KNOWN. UTILIZES CALL LIGHT APPROPRIATELY. STATES PAIN IS ADEQUATELY CONTROLLED AT THIS TIME. MEDIPORT TO RIGHT UPPER CHEST WITH IG INFUSIONS STARTED AT 49.5ML/HR WITH A PROGRESSION OF 100ML/HR AFTER 30 MINUTES. PT STATES SHE TYPICALLY ONLY TOLERATES THE INFUSIONS AT 100ML/HR AT THE INFUSION CENTER; THEREFORE, WILL LEAVE AT THAT RATE UNTIL INFUSIONS ARE COMPLETE. PT TRANSFERRED TO [facility] [place] THIS SHIFT WITH A LARGE VOID. PT DECLINED BED BATH. CALL LIGHT IS WITHIN REACH; ABLE TO MAKE NEEDS KNOWN.
--- NOTE | 2021-09-24 05:23 | NUR ---
END OF SHIFT SUMMARY NO SIGNIFICANT CHANGES SINCE LAST ENTRY. IVIG CONTINUES TO INFUSE; 9/10 BOTTLES CURRENTLY WITH RATE REMAINING AT 100MLS/HR, WHICH PT TOLERATES WELL. CALL LIGHT WITHIN REACH; PT IS ABLE TO MAKE HER NEEDS KNOWN.
--- NOTE | 2021-09-24 09:35 | NUR ---
ASSUMED CARE REPORT FROM KARINA SCOTT AT 0700. PT RESTING IN BED. A&OX 4. PLEASANT. STATES SHE DID NOT GET MUCH SLEEP LAST NOC. DENIES OTHER NEEDS. REPORTS GENERALIZED WEAKNESS, STATES SHE IS NOT YET AT HER BASELINE. LUNGS DIM IN BASES, HOME O2 AT 2L VIA NC. VSS. MEDIPORT TO RIGHT CHEST WALL, DRESSING C/D/I, TKO INFUSING. CALL LIGHT IN REACH. ABLE TO REPOSITION SELF AND MAKE NEEDS KNOWN. WILL CONTINUE TO MONITOR.
--- NOTE | 2021-09-24 17:03 | NUR ---
SHIFT SUMMARY NO ACUTE CHANGES THIS SHIFT. PT REQUESTED ADDITIONAL IVIG DOSE THIS EVENING. DR GAITAN NOTIFIED. PLAN TO HOLD UNTIL TOMORROW AND REASSESS. PT AGREABLE c PLAN. VSS. WILL CONTINUE TO MONITOR UNTIL REPORT TO ONCOMING NURSE.
[2021-09-25 04:11] LABS: Anion Gap 0 mmol/L (6-16); Blood Urea Nitrogen 13 mg/dL (8-24); Bun/Creatinine Ratio 26.3 (12.0-20.0); CO2, Blood 35 mmol/L (21-32); Calcium, Blood 9.1 mg/dL (8.5-10.1); Chloride, Blood 103 mmol/L (98-108); Glomerular Filtration Rate >60 (60-); Glucose, Blood 86 mg/dL (70-99); Sodium, Blood 138 mmol/L (136-145)
--- NOTE | 2021-09-25 06:17 | NUR ---
END OF SHIFT ALFONZO: PATIENT FINALLY GOT SOME SLEEP TONIGHT. VSS. EAGER TO HEAR PLAN FOR TODAY
== END 2021-09-25 16:46 | disposition home health service (06) | DRG 56 ==
LOC: ER 13:41 → PCU 16:26 → ICUW 16:55
PROVIDERS: Physician Assistant; Student in an Organized Health Care Education/Training Program; ADMIT Hospitalist
PROC: 30233S1 Transfusion of Nonautologous Globulin into Peripheral Vein, Percutaneous Approach (ICD-10-PCS; principal; 2021-09-21)
DX: G70.01 Myasthenia gravis with (acute) exacerbation (principal); J96.22 Acute and chronic respiratory failure with hypercapnia; E27.1 Primary adrenocortical insufficiency; E87.3 Alkalosis; J96.11 Chronic respiratory failure with hypoxia; Z20.822 Contact with and (suspected) exposure to COVID-19; E03.9 Hypothyroidism, unspecified; K21.9 Gastro-esophageal reflux disease without esophagitis; M81.0 Age-related osteoporosis without current pathological fracture; I10 Essential (primary) hypertension; M79.7 Fibromyalgia; E87.6 Hypokalemia; Z91.14 Patient's other noncompliance with medication regimen; Z90.710 Acquired absence of both cervix and uterus; Z90.89 Acquired absence of other organs; Z98.890 Other specified postprocedural states; Z87.891 Personal history of nicotine dependence; Z88.1 Allergy status to other antibiotic agents; Z88.8 Allergy status to other drugs, medicaments and biological substances; Z79.891 Long term (current) use of opiate analgesic; Z79.899 Other long term (current) drug therapy
CPT/HCPCS: 0241U; 36415; 71045; 80048; 80053; 82803; 83735; 84484; 85025; 93005; 93010; 94660; 96361; 96374; 97110; 97162; 99285-25; A9270; J1568; J1642; J1650; J2550; J3480; J7030

== ENCOUNTER → 2022-02-20 | Outpatient (CLI) | payer MEDICARE, BC ==
[~2022-02-20] MED LIST changes: +POTCHL20ER PO; +TIMO.5OPSO BOTHEYES; +TRAZ100 PO; -TRAZ50 PO
== END | disposition home or self-care (01) ==
LOC: LAB 15:02 → LAB SHORT 15:02
DX: R39.0 Extravasation of urine (principal)
CPT/HCPCS: 87086

== ENCOUNTER 2022-03-09 05:46 | Inpatient (IN) | payer MEDICARE, BC ==
[~2022-03-09] VITALS: Ht 152.4 cm; Wt 99.8 kg
[2022-03-09 06:14] LABS: BASOPHILS ABSOLUTE AUTO 0.01 K/mm3 (0.00-0.23); BASOPHILS PERCENT AUTO 0 % (0-2); EOSINOPHILS PERCENT AUTO 0 % (0-6); Hematocrit 44.8 % (33.0-51.0); Hemoglobin 15.1 g/dL (11.5-16.0); IMMATURE GRAN ABSOLUTE AUTO 0.02 K/mm3 (0.00-0.10); IMMATURE GRAN PERCENT AUTO 0 % (0-1); LYMPHOCYTES ABSOLUTE AUTO 0.82 K/mm3 (0.84-5.20); LYMPHOCYTES PERCENT AUTO 9 % (21-46); MONOCYTES ABSOLUTE AUTO 0.32 K/mm3 (0.16-1.47); MONOCYTES PERCENT AUTO 4 % (4-13); Mean Corpuscular HGB Conc 33.7 g/dL (31.5-36.5); Mean Corpuscular Volume 89 fL (80-100); Mean Platelet Volume 11.6 fL (9.1-12.4); NEUTROPHILS PERCENT AUTO 87 % (41-73); Platelet Count 260 K/mm3 (150-400); RDW Coefficient Variation 14.1 % (11.7-14.2); RDW Standard Deviation 45.5 fL (35.1-46.3); Red Blood Cell Count 5.03 M/mm3 (3.80-5.20); White Blood Cell Count 8.97 K/mm3 (4.00-11.30)
[2022-03-09 06:31] LABS: Albumin, Blood 4.1 g/dL (3.4-5.0); Albumin/Globulin Ratio 0.7 (0.8-1.8); Bilirubin, Total 0.4 mg/dL (0.1-1.0); Bun/Creatinine Ratio 14.1 (12.0-20.0); Calcium, Blood 9.8 mg/dL (8.5-10.1); Creatinine, Blood 0.57 mg/dL (0.40-1.00); Globulin, Blood 5.7 g/dL (2.2-4.0); Potassium, Blood 2.9 mmol/L (3.5-5.5); Total Protein, Blood 9.8 g/dL (6.4-8.2)
--- NOTE | 2022-03-09 12:00 | NUR ---
ASSUMED CARE: PT TRANSFERRED FROM ED WITH POTASSIUM AND IGG RUNNING PER ORDERS. PT AWAKE AND TALKING TO STAFF, 2L NC WHICH IS BASELINE, SINUS RIMMA AT 59 ON TELE. COMPLAINS OF MUSCLE SPASMS. DENIES FURTHER NEEDS OR CONCERNS.
--- NOTE | 2022-03-09 13:49 | NUR ---
PRN MUSCLE RELAXANT GIVEN TO PT PER ORDERS. PT ASKED IF SISTER COULD BE NOTIFIED OF ADMISSION. CALL COMPLETED. PT RESTING IN BED. CALL LIGHT IN REACH. NO FURTHER NEEDS OR CONCERNS AT THIS TIME.
--- NOTE | 2022-03-09 16:10 | NUR ---
Spiritual Care Pt. Request Pt. is resting but is responsive when I enter the room. Pt. welcomes my visit. Pt. is pleasant. Pt. displays evidence of isolation and lonliness. Develop rapport through theraputic listening and a calm presence. Pt. verbalizes that her prolonged illness has kept her away from jewish gatherings. Pt. requests that we pray together. Salvo pastoral prayers of encourangement. Pt. displays evidence of kash and peace. Pt. verbalized gratitude for the spiritual care visit.
--- NOTE | 2022-03-09 18:52 | NUR ---
SHIFT SUMMARY: PT NEW ADMIT FROM ED TODAY. STATES SHE HAS HAD UTI AND WAS BEING TREATED WITH ORAL ABX AT HOME. NOTED LAST FEW DAYS THAT SHE WAS HAVING INCREASED MUSCLE WEAKNESS AND DIFFICULTY BREATHING. BASELINE OF 2L O2. RECIEVED IGG AND POTASSIUM IV THIS SHIFT. MEDICATED FOR PAIN WITH MORPHINE PER ORDERS. MEDICATED FOR NAUSEA X1. NO ACUTE NEEDS AT THIS TIME
[2022-03-10 04:42] LABS: Hemoglobin 11.4 g/dL (11.5-16.0); Mean Corpuscular HGB 29.8 pg (26.0-34.0); Mean Corpuscular HGB Conc 32.6 g/dL (31.5-36.5); Mean Corpuscular Volume 91 fL (80-100); Mean Platelet Volume 10.9 fL (9.1-12.4); Platelet Count 165 K/mm3 (150-400); RDW Standard Deviation 47.1 fL (35.1-46.3); Red Blood Cell Count 3.83 M/mm3 (3.80-5.20); White Blood Cell Count 5.82 K/mm3 (4.00-11.30)
[2022-03-10 05:01] LABS: Bun/Creatinine Ratio 11.5 (12.0-20.0); Calcium, Blood 8.1 mg/dL (8.5-10.1); Creatinine, Blood 0.44 mg/dL (0.40-1.00); Magnesium, Blood 2.2 mg/dL (1.6-2.4); Potassium, Blood 3.1 mmol/L (3.5-5.5)
--- NOTE | 2022-03-10 06:14 | NUR ---
SHIFT SUMMARY Assumed care of pt at 1900. A/Ox4. No CP/pressure, c/o chronic body pain 03/23. Muscle weakness noted t/o. Maintains above 95% on 2L NC, clear upper lobes and dim at bases. SR on tele 70's. Strong pulses t/o. Redness in skin folds noted. No acute events overnight. Will report to daysangel SCOTT.
--- NOTE | 2022-03-10 07:38 | NUR ---
Received report from Noc RN. Patient awake when entering room and is alert and oriented and is able to communicate her needs. She states pain in neck, back and shoulders and will medicate per MAR. She is on 2L O2 via NC and sats 94%. She has 20ga IV in LAC and is flushed and SL'd. She has LUQ tenderness with palpation, and bilateral LE tenderness. She has right chest mediport access, dressing intact and site WNL's. She has attends in place and is up to BSC with one assist currently.
--- NOTE | 2022-03-10 09:50 | NUR ---
IGG infusing per admin protocol. Patient awake in bed talking on phone and tearful/. Resident was in room with patient prior. She tolerated am meds without difficulty. Flushed mediport and using for IGG. She has been up to bedside cammode.
--- NOTE | 2022-03-10 11:30 | NUR ---
IGG finished . [facility] and tolerated well, was unable to get stool sample as mixed with urine, she had 900 ml out. She has stated that she feels very exhausted. She is sitting up at bedside. VSS. She remains on 2L O2 and sats >90%.
--- NOTE | 2022-03-10 18:32 | NUR ---
SHIFT SUMMARY PT TRANSFERRED FROM PCU. SHE HAS BEEN MANAGING HER PAIN AND WAS ABLE TO GET UP AND WALK A BIT IN THE ROOM. SHE HAS BEEN IN HER ROOM SLEEPING SINCE SHE CAME. GIVEN PAIN MEDICATION TWICE. WILL CONTINUE TO MONITOR
[2022-03-10 20:49] LABS: Source, Urine Clean Catch
[2022-03-10 20:58] LABS: Bilirubin, Urine Neg (Neg); Blood, Urine Neg (Neg); Glucose Qualitative, Urine Neg (Neg); Ketones, Urine Neg (Neg); Leukocyte Esterase, Urine 1+ (Neg); Nitrite, Urine Neg (Neg); Protein, Urine Neg (Neg); Urobilinogen, Urine NORM (Normal); pH, Urine 6.5 (5.0-8.0)
[2022-03-10 21:17] LABS: Color, Urine Pale Yellow (P-Yellow)
[2022-03-10 21:18] LABS: Appearance, Urine Clear (Clear)
[2022-03-10 21:21] LABS: Bacteria Few /hpf; Red Blood Cells, Urine 0-2 /hpf (0-2); Squamous Epithelial Cells Rare /hpf (Few)
--- NOTE | 2022-03-11 04:52 | NUR ---
SHIFT SUMMARY: A&OX4, ON 2L HOME O2, PAIN TREATED PER MAR. REDNESS TO FOLDS. PATIENT STATES SHE FEELS SIGNIFCANT IMPROVEMENT IN SYMPTOMS. CORTISOL TEST SCHEUDLED IN AM, MEDIPORT TO RIGHT CHEST WALL PATENT WITH GOOD BLOOD RETURN. NO SIGNIFICANT EVENTS ON NOC.
[2022-03-11 07:31] LABS: Bun/Creatinine Ratio 22.9 (12.0-20.0); Calcium, Blood 8.5 mg/dL (8.5-10.1); Creatinine, Blood 0.39 mg/dL (0.40-1.00); Potassium, Blood 3.6 mmol/L (3.5-5.5)
--- NOTE | 2022-03-11 18:30 | NUR ---
SHIFT SUMMARY PT AxOx4. PLEASANT AND COOPERATIVE WITH CARE. PT WORKED WITH PHYSICAL THERAPY TODAY, SBA WITH FWW. PT REPORTED GENERAL PAIN THIS SHIFT. MEDICATED PER EMAR WITH REPORTED RELIEF. PT GIVEN IV ABX AND IV IG INFUSION THIS SHIFT. PT BREATHING WITHOUT DIFFICULTY ON 2L O2 VIA NC. VITALS REVIEWED. PT CURRENTLY RESTING IN BED WITH CALL LIGHT IN REACH. DENIES ANY NEEDS AT THIS TIME.
--- NOTE | 2022-03-12 04:47 | NUR ---
SHIFT SUMMARY: NO SIGNIFICANT EVENTS ON NOC. PATIENT HAD INCREASED PAIN AND REQUIRED MORE PRN MEDICATIONS THIS SHIFT THEN PRIOR NOC SHIFT. PATIENT STATES SHE FELT LIKE SHE WENT BACKWARDS AFTER HER IVIG TREATMENT TODAY. SHE FURTHER EXPLAINS "I FELT WEAK, AND FATIGUED, ALMOST LIKE I HAVE AN INFECTION AGAIN, SOMETIMES THE IVIG MAKES ME FEEL THAT WAY. I TOOK A NAP THIS AFTERNOON AND FEEL BETTER NOW. I'M HOPING TOMORROWS TREATMENT WILL HAVE ME ON THE UPSWING" REMAINS ON 2L (BASELINE) NC. SLEEP INTERRUPTED BY PAIN. ONCE CONTROLLED SHE IS ABLE TO RETURN TO SLEEP.
--- NOTE | 2022-03-12 16:49 | NUR ---
PT IS A/OX4, PLEASANT AND COOPERATIVE. THE PT IS UP IND IN THE ROOM. PT IS ON 2L/MIN O2 HER BASELINE AT HOME. THE PT RECIEVED HER LAST SCHEDULED IVIG DOSE TODAY. THE PT COULD HAVE BEEN DISCHARGED, HOWEVER, FELT THAT IT WOULD BE SAFER IF SHE WAS ABLE TO STAY OVERNIGHT. SHE FELT THAT SHE WOULDNT HAVE THE HELP AT HOME UNTIL TOMARROW MORNING IF SHE NEEDED IT. DR. YOST WAS NOTIFIED AND THE DISCHRGE WAS HELD UNTIL TOMORROW. THE PT WAS MEDICATED FOR CHRONIC PAIN T/O THE DAY. CALL LIGHT IN REACH. WILL CONTINUE TO MONITOR AND ASSESS FOR CHANGES
--- NOTE | 2022-03-13 06:43 | NUR ---
SHIFT SUMMARY: NO SIGNIFICANT EVENTS ON NOC. PAIN TREATED PER EMAR. SLEPT WELL WHEN PAIN CONTROLLED. PATIENT IS EAGER FOR POTENTIAL TO DC TODAY. REMAINS ON BASELINE 2L NC.
--- NOTE | 2022-03-13 12:32 | NUR ---
PT DISCHARGED THE PT VERBALIZED UNDERSTANDING OF THE DC INSTRUCTIONS. THE PT WAS REMINDED TO FOLLOW UP WITH HER PCP FOR A POST HOSPITAL REVIEW. THE PT APPEARED TO BE BREATHING EASILY AT THE TIME OF DC. THE PT WAS TRANSFERED VIA WHEELCHAIR ACCOMPANIED BY THE BAIL BONDSMAN TO MEET HER RIDE AT THE FRONT DOOR
== END 2022-03-13 12:32 | disposition home health service (06) | DRG 57 ==
LOC: ER 05:46 → PCU 10:48 → MEDS 03-10 13:42
PROVIDERS: Emergency Medicine; Nurse Practitioner Acute Care; Student in an Organized Health Care Education/Training Program; ADMIT Internal Medicine
DX: G70.01 Myasthenia gravis with (acute) exacerbation (principal); J96.11 Chronic respiratory failure with hypoxia; E27.40 Unspecified adrenocortical insufficiency; Z68.41 Body mass index [BMI] 40.0-44.9, adult; F11.20 Opioid dependence, uncomplicated; N39.0 Urinary tract infection, site not specified; R19.7 Diarrhea, unspecified; R73.9 Hyperglycemia, unspecified; T36.95XA Adverse effect of unspecified systemic antibiotic, initial encounter; F32.A Depression, unspecified; E78.5 Hyperlipidemia, unspecified; E03.9 Hypothyroidism, unspecified; R11.2 Nausea with vomiting, unspecified; E86.0 Dehydration; E87.6 Hypokalemia; H53.2 Diplopia; K21.9 Gastro-esophageal reflux disease without esophagitis; M81.0 Age-related osteoporosis without current pathological fracture; M79.7 Fibromyalgia; E66.9 Obesity, unspecified; G89.4 Chronic pain syndrome; I10 Essential (primary) hypertension; M62.81 Muscle weakness (generalized); Z90.710 Acquired absence of both cervix and uterus; Z98.890 Other specified postprocedural states; Z79.899 Other long term (current) drug therapy; Z88.1 Allergy status to other antibiotic agents; Z88.8 Allergy status to other drugs, medicaments and biological substances
CPT/HCPCS: 36415; 80048; 80053; 80400; 81001; 82533; 83690; 83735; 84132; 84484; 85025; 85027; 87086; 93005; 93010; 94760; 94762; 96365; 96375; 96376; 97116; 97116-CQ; 97161; 97530; 97530-CQ; 99285-25; A9270; J0696; J0834; J1569; J1642; J1650; J2405; J3480; J7030

== ENCOUNTER → 2022-04-10 | Outpatient (CLI) | payer MEDICARE, BC ==
[2022-04-10 12:32] LABS: BASOPHILS ABSOLUTE AUTO 0.02 K/mm3 (0.00-0.23); BASOPHILS PERCENT AUTO 1 % (0-2); EOSINOPHILS PERCENT AUTO 3 % (0-6); Hematocrit 35.8 % (33.0-51.0); Hemoglobin 11.5 g/dL (11.5-16.0); IMMATURE GRAN PERCENT AUTO 0 % (0-1); LYMPHOCYTES ABSOLUTE AUTO 1.05 K/mm3 (0.84-5.20); LYMPHOCYTES PERCENT AUTO 31 % (21-46); MONOCYTES ABSOLUTE AUTO 0.39 K/mm3 (0.16-1.47); MONOCYTES PERCENT AUTO 12 % (4-13); Mean Corpuscular HGB 30.2 pg (26.0-34.0); Mean Corpuscular HGB Conc 32.1 g/dL (31.5-36.5); Mean Corpuscular Volume 94 fL (80-100); Mean Platelet Volume 11.7 fL (9.1-12.4); NEUTROPHILS ABSOLUTE AUTO 1.81 K/mm3 (1.96-9.15); NEUTROPHILS PERCENT AUTO 54 % (41-73); Platelet Count 177 K/mm3 (150-400); RDW Coefficient Variation 13.7 % (11.7-14.2); RDW Standard Deviation 47.3 fL (35.1-46.3); Red Blood Cell Count 3.81 M/mm3 (3.80-5.20); White Blood Cell Count 3.37 K/mm3 (4.00-11.30)
[2022-04-10 13:17] LABS: Albumin, Blood 3.5 g/dL (3.4-5.0); Albumin/Globulin Ratio 0.7 (0.8-1.8); Bilirubin, Total 0.3 mg/dL (0.1-1.0); Bun/Creatinine Ratio 15.6 (12.0-20.0); Calcium, Blood 9.1 mg/dL (8.5-10.1); Creatinine, Blood 0.45 mg/dL (0.40-1.00); Globulin, Blood 5.2 g/dL (2.2-4.0); Potassium, Blood 3.8 mmol/L (3.5-5.5); Total Protein, Blood 8.7 g/dL (6.4-8.2)
== END | disposition home or self-care (01) ==
LOC: LAB SHORT 11:21 → LAB 11:21 → EDSTATUS 12-19 13:45 → LAB FUT 12-19 13:45
PROVIDERS: Nurse Practitioner
DX: G70.00 Myasthenia gravis without (acute) exacerbation (principal)
CPT/HCPCS: 80053; 85025

== ENCOUNTER 2022-11-20 02:26 | Emergency (ER) | payer MEDICARE, BC ==
[~2022-11-20] VITALS: Ht 157.5 cm; Wt 97.5 kg
[2022-11-20 03:28] LABS: BASOPHILS ABSOLUTE AUTO 0.02 K/mm3 (0.00-0.23); BASOPHILS PERCENT AUTO 0 % (0-2); EOSINOPHILS ABSOLUTE AUTO 0.03 K/mm3 (0.00-0.68); EOSINOPHILS PERCENT AUTO 1 % (0-6); Hematocrit 42.4 % (33.0-51.0); Hemoglobin 13.5 g/dL (11.5-16.0); IMMATURE GRAN ABSOLUTE AUTO 0.01 K/mm3 (0.00-0.10); IMMATURE GRAN PERCENT AUTO 0 % (0-1); LYMPHOCYTES ABSOLUTE AUTO 0.82 K/mm3 (0.84-5.20); LYMPHOCYTES PERCENT AUTO 18 % (21-46); MONOCYTES ABSOLUTE AUTO 0.17 K/mm3 (0.16-1.47); MONOCYTES PERCENT AUTO 4 % (4-13); Mean Corpuscular HGB 29.6 pg (26.0-34.0); Mean Corpuscular HGB Conc 31.8 g/dL (31.5-36.5); Mean Corpuscular Volume 93 fL (80-100); Mean Platelet Volume 10.3 fL (9.1-12.4); NEUTROPHILS ABSOLUTE AUTO 3.46 K/mm3 (1.96-9.15); NEUTROPHILS PERCENT AUTO 77 % (41-73); Platelet Count 224 K/mm3 (150-400); Red Blood Cell Count 4.56 M/mm3 (3.80-5.20); White Blood Cell Count 4.51 K/mm3 (4.00-11.30)
[2022-11-20 03:46] LABS: Albumin/Globulin Ratio 0.7 (0.8-1.8); Bilirubin, Total 0.2 mg/dL (0.1-1.0); Bun/Creatinine Ratio 11.3 (12.0-20.0); Calcium, Blood 9.7 mg/dL (8.5-10.1); Creatinine, Blood 0.53 mg/dL (0.40-1.00); Globulin, Blood 5.5 g/dL (2.2-4.0); Potassium, Blood 3.9 mmol/L (3.5-5.5); Total Protein, Blood 9.5 g/dL (6.4-8.2)
[2022-11-20] MEDS ORDERED: CEFD300 PO (04:25)
== END 2022-11-20 06:24 | disposition home or self-care (01) ==
LOC: ER 02:26
PROVIDERS: Student in an Organized Health Care Education/Training Program
DX: R11.2 Nausea with vomiting, unspecified (principal); T36.8X5A Adverse effect of other systemic antibiotics, initial encounter; E03.9 Hypothyroidism, unspecified; K21.9 Gastro-esophageal reflux disease without esophagitis; I10 Essential (primary) hypertension; Z88.8 Allergy status to other drugs, medicaments and biological substances; Z88.1 Allergy status to other antibiotic agents; Z79.899 Other long term (current) drug therapy; Z79.890 Hormone replacement therapy
CPT/HCPCS: 80053; 85025; J2405; J7030

== ENCOUNTER → 2022-12-03 | Outpatient (CLI) | payer MEDICARE, BC ==
[~2022-12-03] MED LIST changes: +CEFD300 PO
[2022-12-06 14:10] LABS: M-SPIKE, % Not Observed % (Not Observed)
== END | disposition home or self-care (01) ==
LOC: LAB SHORT 13:00 → LAB 13:00
PROVIDERS: Physician Assistant
DX: R79.9 Abnormal finding of blood chemistry, unspecified (principal)
CPT/HCPCS: 81050

== ENCOUNTER 2022-12-12 09:23 | Inpatient (IN) | payer MEDICARE, BC ==
[~2022-12-12] VITALS: Ht 157.5 cm; Wt 98.6 kg
[2022-12-12 10:52] LABS: BASOPHILS ABSOLUTE AUTO 0.02 K/mm3 (0.00-0.23); BASOPHILS PERCENT AUTO 0 % (0-2); EOSINOPHILS ABSOLUTE AUTO 0.01 K/mm3 (0.00-0.68); EOSINOPHILS PERCENT AUTO 0 % (0-6); Hematocrit 42.7 % (33.0-51.0); Hemoglobin 14.2 g/dL (11.5-16.0); IMMATURE GRAN ABSOLUTE AUTO 0.02 K/mm3 (0.00-0.10); IMMATURE GRAN PERCENT AUTO 0 % (0-1); LYMPHOCYTES ABSOLUTE AUTO 0.92 K/mm3 (0.84-5.20); LYMPHOCYTES PERCENT AUTO 10 % (21-46); MONOCYTES ABSOLUTE AUTO 0.39 K/mm3 (0.16-1.47); MONOCYTES PERCENT AUTO 4 % (4-13); Mean Corpuscular HGB Conc 33.3 g/dL (31.5-36.5); Mean Corpuscular Volume 90 fL (80-100); Mean Platelet Volume 10.7 fL (9.1-12.4); NEUTROPHILS ABSOLUTE AUTO 7.66 K/mm3 (1.96-9.15); NEUTROPHILS PERCENT AUTO 85 % (41-73); Platelet Count 255 K/mm3 (150-400); RDW Coefficient Variation 13.6 % (11.7-14.2); RDW Standard Deviation 44.9 fL (35.1-46.3); Red Blood Cell Count 4.74 M/mm3 (3.80-5.20); White Blood Cell Count 9.02 K/mm3 (4.00-11.30)
[2022-12-12 11:19] LABS: Albumin, Blood 3.5 g/dL (3.4-5.0); Albumin/Globulin Ratio 0.6 (0.8-1.8); Bilirubin, Total 0.3 mg/dL (0.1-1.0); Bun/Creatinine Ratio 15.5 (12.0-20.0); Calcium, Blood 9.5 mg/dL (8.5-10.1); Creatinine, Blood 0.52 mg/dL (0.40-1.00); Globulin, Blood 6.3 g/dL (2.2-4.0); Magnesium, Blood 2.3 mg/dL (1.6-2.4); Total Protein, Blood 9.8 g/dL (6.4-8.2)
--- NOTE | 2022-12-12 17:55 | NUR ---
"Spiritual Care | Pt. Request Pt. is awake and welcomed my visit. Pt. verbalized that she remembers this director of corporate strategy from a previous hospital visit. Pt also verbalize that she is very weak but would like prayer. Prayed with Pt. Pt. verbalized gratitude for the spiritual care visit and welcomed this director of corporate strategy to return tomorrow."
--- NOTE | 2022-12-12 18:04 | NUR ---
SHIFT SUMMARY PT AOX4, ARRIVING FROM THE ED THIS AFTERNOON. SHE C/O PAIN AND NAUSEA, MEDICATED PER THE EMAR. SHE USED THE BSC WITH 2P AND TOLERATED IT WELL. SHE IS CURRENTLY ON A LIQUID DIET. SHE HAS NO VOMITTED SINCE BEING UP HERE ON MEDICAL FLOOR. WILL REPORT TO ONCOMING NURSE.
--- NOTE | 2022-12-13 04:43 | NUR ---
SUMMARY: NO ACUTE EVENTS OVERNIGHT. PATIENT MEDICATED FOR PAIN PER EMAR. ASSITED PATIENT OUT OF BED TO COMMODE 1-2X ASSIST. PATIENT REPORTED MIGRAINE, NOTIFIED MD, RECIEVED ORDER FOR IMATREX. PATIENT REQUESTED HER EFFEXOR ALSO HAD MED RESTARTED. PATIENT STATED THAT SHE THREW UP BUT WHEN NURSE ASSESSED EMESIS IS JUST LOOKED LIKE A VERY SMALL AMOUNT OF SPUTUM. PATIENT ATE A FEW CUPS OF JELLO AND POPCYCLES. TOLERATED WELL. IV POTASSIUM INFUSING OVERNGIHT.
[2022-12-13 05:50] LABS: BASOPHILS ABSOLUTE AUTO 0.01 K/mm3 (0.00-0.23); BASOPHILS PERCENT AUTO 0 % (0-2); EOSINOPHILS ABSOLUTE AUTO 0.06 K/mm3 (0.00-0.68); EOSINOPHILS PERCENT AUTO 1 % (0-6); Hematocrit 35.2 % (33.0-51.0); IMMATURE GRAN ABSOLUTE AUTO 0.02 K/mm3 (0.00-0.10); IMMATURE GRAN PERCENT AUTO 0 % (0-1); LYMPHOCYTES ABSOLUTE AUTO 2.06 K/mm3 (0.84-5.20); LYMPHOCYTES PERCENT AUTO 31 % (21-46); MONOCYTES ABSOLUTE AUTO 0.64 K/mm3 (0.16-1.47); MONOCYTES PERCENT AUTO 10 % (4-13); Mean Corpuscular HGB 29.9 pg (26.0-34.0); Mean Corpuscular HGB Conc 34.1 g/dL (31.5-36.5); Mean Corpuscular Volume 88 fL (80-100); Mean Platelet Volume 10.9 fL (9.1-12.4); NEUTROPHILS ABSOLUTE AUTO 3.83 K/mm3 (1.96-9.15); NEUTROPHILS PERCENT AUTO 58 % (41-73); Platelet Count 227 K/mm3 (150-400); RDW Coefficient Variation 13.8 % (11.7-14.2); RDW Standard Deviation 44.3 fL (35.1-46.3); Red Blood Cell Count 4.01 M/mm3 (3.80-5.20); White Blood Cell Count 6.62 K/mm3 (4.00-11.30)
[2022-12-13 09:23] LABS: Test Name CHEM 8
[2022-12-13] MEDS ORDERED: Morphine Sulfat15 MG PO (12:19)
[2022-12-13 12:32] LABS: Result SEE SEPERATE REPORT
--- NOTE | 2022-12-13 18:48 | NUR ---
SHIFT SUMMARY PT 1 PERSON ASSIST UP TO BSC. 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 CHRONIC PAIN TO NECK, SHOULDERS, AND BACK. REPORTS FEELING VERY WEAK.
--- NOTE | 2022-12-14 03:47 | NUR ---
BEAUTY THERAPIST SUMMARY PT A/OX4. NO ACUTE CHANGES. ABLE TO MAKE NEEDS KNOWN. 1 PERSON MINIMAL SBA T/BSC--PT REPORTS FEELING STRONGER THIS SHIFT WHEN UP USING BSC. PT CONT T/REPORT CHRONIC PAIN--MED P/EMAR. ON 2.5L O2 NC. PT REFUSING STOOL SOFTNERS--REPORTING DIARRHEA. CALL LIGHT ACCESSIBLE.
--- NOTE | 2022-12-14 20:01 | NUR ---
SHIFT SUMMARY- PT HAS HAD NO ACUTE CHANGE T/O THE DAY. MEDICATED WITH HOME REGIMENT OF PAIN MEDICINE. PT DENIED NAUSEA, T/O THE SHIFT. PT EATING AND DRINKING WELL. PT STATES SHE FEELS LIKE SHE IS GETTING STRONGER, PT IS VERY INVOLVED IN HER OWN CARE AND KNOWS ALL MEDICATIONS AND FREQUENCY WELL DOSES. BEDSIDE REPORT COMPLETED WITH NIGHT RN ASHER. PT IN THE RECLINER CALL LIGHT IN REACH NO S&S OF DISTRESS NOTED AT THE TIME OF BEDSIDE REPORT.
--- NOTE | 2022-12-15 04:16 | NUR ---
SHIFT SUMMARY PATIENT HAD NO ACUTE CHANGES. AXOX 4 AND ONE ASSIST W/FWW TO BSC. SOB W/EXERTION. ON 3L O2 NC AND 2L BASELINE. PIV REMAINS INTACT. SCHEDULE MS CONTIN. REPORTED SHOULDER/BACK PAIN AND MORPHINE SULFATE 30 MG GIVEN PER EMAR. DENIES CHEST PAIN AND N/V. VSS/AFEBRILE. COOPERATIVE WITH CARE. CALL LIGHT IN REACH. BED IN LOWEST POSITION. WILL CONTINUE TO MONITOR UNTIL DAY SHIFT NURSE ASSUMES CARE.
--- NOTE | 2022-12-15 10:46 | NUR ---
PT IV IG INFUSION- MED WAS SCANNED AND PUMP PROGRAMMED AND THE PT STATES SHE HAS TO BE PREMEDICATED WITH 100MG IMITREX. CALLED DR CHAN AND RECIEVED ORDER. PT MEDICATED WITH IMITREX PRIOR TO START OF IVIG INFUSION. PT DECLINED HER AMLODIPINE DOSE THIS AM. FIRST SET OF VITALS AFTER THE IVIG WAS STARTED SBP LESS THAN 100. WILL CTM. PT STATES SHE STARTS HER INFUSION RATE AT 20 THEN ADDS 20ML/HR EVERY 30 MINUTES.
--- NOTE | 2022-12-15 11:05 | NUR ---
PT INFUSION INCREASED RATE TO 40ML/HR. NEXT VITALS CHECK IN 30 MINUTES, WITH RATE INCREASE. NO S&S OF DISTRESS PT DENES ANY NEW PROBLEMS AT THIS TIME WILL CTM.
--- NOTE | 2022-12-15 15:24 | NUR ---
PT SEEMS TO BE TOLLERATING THE IVIG WELL AT THIS TIME. PT REQUESTED TO CHANGE THE NAME OF PEOPLE ABLE TO RECIEVE MEDICAL INFORMATION, PROVIDED HER WITH A COPY OF HER VERBAL RELEASE OF INFORMATION FORM. PT HAS YET TO ADD THE NAMES SHE WANTED TO ADD.
--- NOTE | 2022-12-15 17:40 | NUR ---
SHIFT SUMMARY- PT ALERT AND ORIENTED, 1PA TO THE BSC OR THE CHAIR. PT LOST IV ACCESS LAST NIGHT, SPOKE TO DR CHAN AND RECIEVED AN ORDER FOR MEDIPORT ACCESS SO THE PT COULD RECIEVE HER INFUSION OF IVIG. PT RECIEVED THAT TODAY T/O THE SHIFT. THE PT HAS TO START AT 20ML/HR AND GO UP EVERY 30 MINUTES BY 20ML/HR TO A MAX INFUSION RATE OF 100ML/HR. THAT IS ALL SHE CAN TOLLERATE PER THE PT. PT IS CURRENTLY IN BED, CALL LIGHT IN REACH NO S&S OF DISTRESS NOTED AT THIS TIME WILL CTM AND PASS ALL ON IN BEDSIDE REPORT TO NIGHT RN.
--- NOTE | 2022-12-16 04:19 | NUR ---
SHIFT SUMMARY PATIENT HAD NO ACUTE CHANGES OBSERVED. AXOX 4 AND ONE ASSIST TO BR W/FWW. ON 3L O2 NC AND 2L O2 BASELINE. VSS/AFEBRILE. DENIES CHEST PAIN, SOB, AND N/V. REPORTED BACK/SHOULDER PAIN AND MORPHINE SULFATE 30 MG GIVEN PER EMAR. ABLE TO SLEEP WITH PAIN MANAGED. MEDIPORT INTACT. COOPERATIVE WITH CARE. CALL LIGHT IN REACH. BED IN LOWEST POSITION. WILL CONTINUE TO MONITOR UNTIL DAY SHIFT NURSE ASSUMES CARE.
--- NOTE | 2022-12-16 15:20 | NUR ---
SHIFT SUMMARY- PT ALERT, AVI RAMESH AND 1PA TO THE BSC. PT HAS BEEN VERY TIRED TODAY, SHE STATES THIS IS NORMAL FOR HER AFTER SHE RECIEVES IVIG. PT RECIEVED HER SECOND AND FINAL INFUSION THAT WAS ORDERED, PREMEDICATED WITH 100MG IMITREX. PT HAS BEEN SWEATY T/O THE WHOLE DAY, SHE STATES THIS IS ALSO NOT ABNORMAL FOR HER. SHE HAS BEEN ALERT AND CONVERSATIONAL T/O THE INFUSION. PT STATED HER APPETITE IS BACK DIET INCREASED TO REGULAR PER DR CHAN. PT IN BED, CALL LIGHT IN REACH MEDIPORT ACCESSED AND HEPARIN LOCKED. NO S&S OF DISTRESS NOTED AT THIS TIME WILL CTM AND PASS ON TO NIGHT RN IN BEDSIDE REPORT.
--- NOTE | 2022-12-17 04:39 | NUR ---
SHIFT SUMMARY PATIENT HAD NO ACUTE CHANGES. AXOX 4 AND ONE ASSIST TO BR. MEDIPORT HEPARIN LOCKED. DENIES CHEST PAIN, SOB, AND N/V. ON 3L 02 NC. REPORTED BACK/SHOULDER PAIN AND MORPHINE SULFATE 30 MG GIVEN PER EMAR. WATCHED TV FIRST PART OF SHIFT. COOPERATIVE OF CARE. CALL LIGHT IN REACH. BED IN LOWEST POSITION. WILL CONTINUE TO MONITOR UNTIL DAY SHIFT NURSE ASSUMES CARE.
--- NOTE | 2022-12-17 17:43 | NUR ---
SHIFT SUMMARY: PT A&O X4. PT HAS BEEN VERY PLEASANT AND COOPERATIVE WITH CARE. PLAN IS FOR PT TO D/C TO SNF WHEN INSURANCE GOES THROUGH AND A BED IS AVAILABLE. PT HAD LONG CONVERSATION W/INSURANCE COMPANY AND STATED "THEY ARE ALMOST THROUGH APPROVING AND NEEDS TO GO THROUGH THE BOSS." STATES THEY WILL BE CALLING BACK LATER FOR UPDATE. PT CURRENTLY ON 3L WITH SATS >92%. PT IS A 1P ASSIST W/FWW. PT C/O PAIN TWICE IN BACK AND NECK. PT RECEIVED SCHEDULED MORPHINE ER WELL PRN IMMEDIATE RELEASE MORPHINE. DENIES N/V. MEDIPORT ACCESSED AND HEPARIN LOCKED. CALL LIGHT IN REACH. BED IN LOWEST POSITION. WILL CONTINUE TO MONITOR.
--- NOTE | 2022-12-18 17:23 | NUR ---
SHIFT SUMMARY: PT A&O X4. PT HAS BEEN PLEASANT AND COOPERATIVE WITH ALL CARE. NO ACUTE CHANGES WITH PT THIS SHIFT. PT WORKED WELL W/PT AND OT. 1P ASSIST WITH TRANSFERS. PT C/O PAIN TWICE THIS SHIFT IN HER BACK, NECK, AND SHOULDERS. GAVE MEDS PER EMAR WHICH INCLUDED ER MORPHINE AND PRN IR MORPHINE. PT STATED SHE FELT VERY TIRED THIS MORNING; MORE THAN USUAL. CURRENTLY WAITING ON PLACEMENT TO SNF. PT IN CHAIR W/NO C/O N/V. CALL LIGHT IN REACH. BED IN LOWEST POSITION. WILL CONTINUE TO MONITOR.
--- NOTE | 2022-12-19 15:15 | NUR ---
Pt. is awake and sitting in a ecliner when she welcomes my visit. Pt. is unsettled by a lack of safe place for her to live when she D/Cs. Listen with empathy and a calming presence. Pt. displays evidence of engagement and open interaction. Facilitate a life review and gave pastoral group counselor to Pt. zPt. displays evidence of being alone. DIscussion about whaat options exist for Pt. takes place. Through active and theraputic listening, [facility] is presented as a good [place] community option for the Pt. Prayed with Pt. and presented Pt. with information to the Pt. Pt. verbalized gratitude for both prayer and info.
--- NOTE | 2022-12-19 17:11 | NUR ---
SHIFT SUMMARY: PT A&O X4. PT VERY PLEASANT AND COOPERATIVE WITH CARE. NO ACUTE CHANGES WITH PT THIS SHIFT. PT STILL WAITING ON PLACEMENT AND FOR INSURANCE TO GO THROUGH. PT THOUGHT INSURANCE HAD BEEN ACCEPTED BUT OPERATIONS SUPERVISOR 2ND SHIFT STATED DIFFERENT. PT C/O PAIN TWICE THIS SHIFT IN BACK AND SHOULDERS. MEDICATED PT PER EMAR. PT WORKED WITH BOTH PT AND OT. BOTH STATED PT IS DOING VERY WELL. PT MOVING TO CHAIR AND BSC WITH LIMITED ASSISTANCE. CALL LIGHT IN REACH. BED IN LOWEST POSITION. WILL CONTINUE TO MONITOR.
--- NOTE | 2022-12-20 18:24 | NUR ---
SHIFT SUMMARY PATIENT MEDICATED FOR PAIN X2, PATIENT DENIES NAUSEA AND SHORTNESS OF BREATH. PATIENT IS ON 3L VIA N/C, PATIENT USES 2L AT BASELINE. PATIENT IS SATURATING ABOVE 90%. PATIENT OCCASSIONALLY USES THE BSC COMMODE INDEPENDENTLY. PATIENT IS A SBA TO THE BATHROOM. PATIENT USES AT FWW. PATIENT IS EATING AND DRINKING WELL. CARE MANAGERS WORKING ON SNF PLACEMENT. PATIENT IS PLEASANT AND COOPERATIVE WITH CARE.
--- NOTE | 2022-12-21 05:38 | NUR ---
SHIFT NOTE PATIENT REMAINS ALERT AND ORIENTED, CALM AND COOPERATIVE WITH CARE. PAIN TREATED PER MAR, IND TO BSC, 1X ASSIST TO RESTROOM, NO SOB, 3L, VS WNL. SLEPT WELL THROUGH THE NIGHT. NO OTHER ISSUES TO REPORT.
--- NOTE | 2022-12-21 18:20 | NUR ---
SHIFT SUMMARY: PT A&O X4, PLEASANT, COOPERATIVE, ABLE TO VOICE NEEDS AND COMMUNCIATES WITH STAFF. PT HAD MODERATE PAIN DURING THE SHIFT, PT MEDICATED WITH SCEDULED AND PRN PAIN MEDICATION. PT REQUESTED TO USE HER HOME NICOTINE LOZENGE, DR. MATHEUS ECHEVERRIAATCTED AND ORDERED HOME MEDICATION NICOTINE 4MG LOZENGE Q4HR FOR SMOKING CESSATION. PT PARTICIPATED WITH PT, SEE PT NOTES. PT ABLE TO AMBULATE TO THE RERSTROOM WITH 1 PERSON ASSIST WITH FWW. PT UP IN CHAIR FOR 2 OUT 3 MEALS. CASE MANAGEMENT TALK WITH PT ABLE DISCHARGING HOME WITH HOME HEALTH AND PT DECLINED AND REQUESTED SNF PLACEMENT, SEE CM NOTES. PT IN BED WITH CALL LIGHT WITHIN REACH.
--- NOTE | 2022-12-22 17:23 | NUR ---
SHIFT SUMMARY: NO ACUTE EVENTS. C/O CHRONIC PAIN IN NECK, BACK, AND SHOULDERS; MEDICATED PER EMAR WITH ADEQUATE RELIEF. PER DR. CHAN'S ORDER, INSTRUCTED PT THAT SHE WOULD NEED TO WALK IN THE HALLWAY TWICE TODAY, BUT SHE RECEIVED A XANAFLEX AND WAS UNSTEADY ON HER FEET AFTER THAT SO SHE DID NOT WANT TO WALK. SHE WILL WALK TOMORROW. GOOD PO INTAKE. GETTING UP TO BR WITH FWW AND SBA.
--- NOTE | 2022-12-23 05:31 | NUR ---
GREGORY SLEPT WELL THROUGH THE NIGHT, ALERT AND ORIENTED X4, COOPERATIVE WITH CARE. SHE STATES SHE FEELS MUCH BETTER WHEN UP, HER KNEES DO NOT SHAKE ANY LONGER, AND IS LOOKING FORWARD TO GOING HOME. ALTHOUGH SHE BELIEVES SHE WILL HAVE TO FORGO GROCERIES IN ORDER TO PAY FOR HER MEDICAL NEEDS. REMAINED ON 3L, NO COUGH OR C/O SOB. WILL CONT TO MONITOR.
--- NOTE | 2022-12-23 16:24 | NUR ---
SHIFT SUMMARY: NO ACUTE EVENTS. STILL HAVING SOME WEAKNESS AND ACTIVITY INTOLERANCE WHILE AMBULATING. C/O CHRONIC PAIN IN NECK, SHOULDERS, AND BACK; MEDICATED PER EMAR WITH ADEQUATE RELIEF, WATCHES THE CLOCK. ON O2 @ 3 L/MIN NC. GETTING UP TO BR WITH 1 PERSON, FWW, AND GAIT BELT, KNOWS HER LIMITATIONS AND CALLS APPROPRIATELY. GOOD PO INTAKE. PLAN IS D/C HOME TOMORROW, AND SHE IS OK WITH THAT.
--- NOTE | 2022-12-24 04:29 | NUR ---
SHIFT SUMMARY 62 YR F ADMITTED ON 12/13/22 FOR COMPLICATIONS OF MYESTENIA GRAVIS. FULL CODE. NO ACUTE CHANGES THIS SHIFT. PT IS ABLE TO AMBULATE TO BATHROOM W/ MINIMAL ASSISTANCE. SHE QUESTIONS ALL MEDS GIVEN AND TENDS TO ARGUE ABOUT DOSAGES AND FREQUENCY OF MEDS. SHE APPEARS TO HAVE SLEPT PEACEFULLY THROUGH THE NIGHT AND DID NOT CALL FOR MIDNIGHT PAIN MEDS. PLAN IS TO DISCHARGE HOME TODAY.
[2022-12-24] MEDS ORDERED: NICOTINE LOZENGE2 MG MM (11:45)
[2022-12-24] MEDS ORDERED: DOCU100 PO (11:46)
[2022-12-24] MEDS ORDERED: SENN187 PO (11:50)
--- NOTE | 2022-12-24 17:08 | NUR ---
PT DISCHARGED AT 1700 WITH ALL PERSONAL BELONGINGS. ALL PAPERWORK REVIEWED AND EDCUATIONAL MATERIAL SENT WITH PT. PT TRANSPORTED HOME WITH FRIEND AT [facility] TAKEN DOWN IN WHEEL CHAIR. PT HAS BEEN AOX4 AND COOPERATIVE OF ALL CARE.
== END 2022-12-24 17:01 | disposition home health service (06) | DRG 57 ==
LOC: ER 09:23 → MEDS 09:24
PROVIDERS: Emergency Medicine; ADMIT Internal Medicine
DX: G70.01 Myasthenia gravis with (acute) exacerbation (principal); J96.11 Chronic respiratory failure with hypoxia; E27.1 Primary adrenocortical insufficiency; Z68.41 Body mass index [BMI] 40.0-44.9, adult; E03.9 Hypothyroidism, unspecified; E78.5 Hyperlipidemia, unspecified; F32.A Depression, unspecified; M79.7 Fibromyalgia; M54.9 Dorsalgia, unspecified; K21.9 Gastro-esophageal reflux disease without esophagitis; M81.0 Age-related osteoporosis without current pathological fracture; E87.6 Hypokalemia; I10 Essential (primary) hypertension; E66.9 Obesity, unspecified; G89.4 Chronic pain syndrome; J45.909 Unspecified asthma, uncomplicated; M19.90 Unspecified osteoarthritis, unspecified site; Z79.899 Other long term (current) drug therapy; Z98.890 Other specified postprocedural states; Z90.710 Acquired absence of both cervix and uterus; Z79.02 Long term (current) use of antithrombotics/antiplatelets; Z79.891 Long term (current) use of opiate analgesic; Z88.8 Allergy status to other drugs, medicaments and biological substances; Z88.1 Allergy status to other antibiotic agents
CPT/HCPCS: 36415; 80048; 80053; 83735; 85025; 94760; 96361; 96365; 96372; 96375; 96376; 97110; 97112; 97116; 97161; 97166; 97530; 97535; 99285-25; A9270; G0378; J1569; J1642; J1650; J1885; J2270; J2405; J3480; J7030

== ENCOUNTER 2022-12-30 10:38 | Observation (INO) | payer MEDICARE, BC ==
[~2022-12-30] VITALS: Ht 157.5 cm; Wt 101.5 kg
[~2022-12-30 10:38] MED LIST changes: +DOCU100 PO; +Morphine Sulfat15 MG PO; +NICOTINE LOZENGE2 MG MM; +SENN187 PO
[2022-12-30 11:20] LABS: BASOPHILS ABSOLUTE AUTO 0.01 K/mm3 (0.00-0.23); BASOPHILS PERCENT AUTO 0 % (0-2); EOSINOPHILS ABSOLUTE AUTO 0.03 K/mm3 (0.00-0.68); EOSINOPHILS PERCENT AUTO 1 % (0-6); Hematocrit 38.9 % (33.0-51.0); Hemoglobin 12.4 g/dL (11.5-16.0); IMMATURE GRAN ABSOLUTE AUTO 0.01 K/mm3 (0.00-0.10); IMMATURE GRAN PERCENT AUTO 0 % (0-1); LYMPHOCYTES ABSOLUTE AUTO 1.03 K/mm3 (0.84-5.20); LYMPHOCYTES PERCENT AUTO 20 % (21-46); MONOCYTES ABSOLUTE AUTO 0.36 K/mm3 (0.16-1.47); MONOCYTES PERCENT AUTO 7 % (4-13); Mean Corpuscular HGB 29.3 pg (26.0-34.0); Mean Corpuscular HGB Conc 31.9 g/dL (31.5-36.5); Mean Corpuscular Volume 92 fL (80-100); Mean Platelet Volume 11.1 fL (9.1-12.4); NEUTROPHILS ABSOLUTE AUTO 3.84 K/mm3 (1.96-9.15); NEUTROPHILS PERCENT AUTO 73 % (41-73); Platelet Count 208 K/mm3 (150-400); RDW Coefficient Variation 13.2 % (11.7-14.2); RDW Standard Deviation 45.1 fL (35.1-46.3); Red Blood Cell Count 4.23 M/mm3 (3.80-5.20); White Blood Cell Count 5.28 K/mm3 (4.00-11.30)
[2022-12-30 11:43] LABS: Alanine Aminotransfer (ALT/SGP 28 U/L (12-78); Albumin, Blood 3.7 g/dL (3.4-5.0); Albumin/Globulin Ratio 0.6 (0.8-1.8); Alk Phos 83 U/L (50-136); Anion Gap Unable to Calculate mmol/L (6-16); Aspartate Aminotrans (AST/SGOT 24 U/L (12-37); Bilirubin, Total 0.2 mg/dL (0.1-1.0); Blood Urea Nitrogen 7 mg/dL (8-24); Bun/Creatinine Ratio 16.5 (12.0-20.0); CO2, Blood 38 mmol/L (21-32); Chloride, Blood 102 mmol/L (98-108); Creatinine, Blood 0.43 mg/dL (0.40-1.00); Globulin, Blood 5.7 g/dL (2.2-4.0); Glomerular Filtration Rate 109 (60-); Glucose, Blood 128 mg/dL (70-99); Potassium, Blood 3.5 mmol/L (3.5-5.5); Sodium, Blood 137 mmol/L (136-145); Total Protein, Blood 9.4 g/dL (6.4-8.2)
--- NOTE | 2022-12-30 16:19 | NUR ---
TURNED IG UP TO 50.
--- NOTE | 2022-12-30 16:39 | NUR ---
BOTTLE #2 OF IVIG SET UP AND RUNNING AT 50ML/HR. PATIENT TOLERATING, NO ADVERSE REACTIONS
--- NOTE | 2022-12-30 16:59 | NUR ---
PATIENT RECIEVED AT 1430 FROM ER ADMITTED FOR MIGRAINES WITH MYASTHENIA GRAVIS FLARE UP.BACK/NECK PAIN 05/23 WITH MIGRAINE. PATIENT HAS NOT HAD BM SINCE 12/26/22, NOT EATEN SINCE 12/26/22. PATIENT DRINKING FLUIDS WELL AT THIS TIME, VERY THIRSTY, STATES NO URINE OUTPUT YESTERDAY, OUTPUT AROUND 1600 WAS 900ML. PAIN TREATED PER EMAR. 1 PERSON MOD ASSIST TO BEDSIDE COMMODE. BED IN LOW POSITION, CALL LIGHT IN REACH. CALLS APPROPRIATELY.
--- NOTE | 2022-12-30 18:37 | NUR ---
CONTINUE IG AT 50
--- NOTE | 2022-12-31 03:37 | NUR ---
SHIFT SUMMERY, PT RESTING IN BED, PT UP TO BEDSIDE COMMODE. PT STAYING UP TILL ALL BOTTLES OF IG FINISHED. PT REQUESTED MEDS FOR BREAK THROUGH PAIN 04/22. PT AT THIS TIME APPERS TO BE SLEEPING. CALL LIGHT IN REACH.
[2022-12-31 05:52] LABS: BASOPHILS ABSOLUTE AUTO 0.02 K/mm3 (0.00-0.23); BASOPHILS PERCENT AUTO 1 % (0-2); EOSINOPHILS ABSOLUTE AUTO 0.12 K/mm3 (0.00-0.68); EOSINOPHILS PERCENT AUTO 4 % (0-6); Hemoglobin 11.2 g/dL (11.5-16.0); IMMATURE GRAN ABSOLUTE AUTO 0.01 K/mm3 (0.00-0.10); IMMATURE GRAN PERCENT AUTO 0 % (0-1); LYMPHOCYTES ABSOLUTE AUTO 1.26 K/mm3 (0.84-5.20); LYMPHOCYTES PERCENT AUTO 36 % (21-46); MONOCYTES ABSOLUTE AUTO 0.33 K/mm3 (0.16-1.47); MONOCYTES PERCENT AUTO 10 % (4-13); Mean Corpuscular HGB 29.5 pg (26.0-34.0); Mean Corpuscular Volume 92 fL (80-100); Mean Platelet Volume 10.8 fL (9.1-12.4); NEUTROPHILS ABSOLUTE AUTO 1.73 K/mm3 (1.96-9.15); NEUTROPHILS PERCENT AUTO 50 % (41-73); Platelet Count 167 K/mm3 (150-400); RDW Coefficient Variation 13.5 % (11.7-14.2); RDW Standard Deviation 45.4 fL (35.1-46.3); White Blood Cell Count 3.47 K/mm3 (4.00-11.30)
[2022-12-31 06:12] LABS: Albumin/Globulin Ratio 0.5 (0.8-1.8); Bilirubin, Total 0.2 mg/dL (0.1-1.0); Bun/Creatinine Ratio 14.4 (12.0-20.0); Calcium, Blood 8.3 mg/dL (8.5-10.1); Creatinine, Blood 0.42 mg/dL (0.40-1.00); Globulin, Blood 5.8 g/dL (2.2-4.0); Potassium, Blood 3.2 mmol/L (3.5-5.5); Total Protein, Blood 8.8 g/dL (6.4-8.2)
--- NOTE | 2022-12-31 12:41 | NUR ---
IVIG CONTINUING TO RUN AT 25ML/HR AT THIS TIME. PATIENT HAS MIGRAINE NOW, 02/20, NORMALLY TAKES IMMITREX DURING INFUSIONS OF IVIG. CALL TO DR CABA. STATES HE WILL PLACE ORDER FOR AMITRIPTYLINE FOR MIGRAINES. PATIENT REQUESTING TO KEEP IVIG AT 25ML/HR.
--- NOTE | 2022-12-31 17:09 | NUR ---
THIS [employer] HAS REVIEWED AND AGREES WITH ALL NOTES AND ASSESSMENTS BY SONIA HILTON.
--- NOTE | 2022-12-31 17:15 | NUR ---
PATIENT AOX4, NO HEADACHE BEGINNING OF SHIFT, MIGRAINE BEGINS AFTER IVIG STARTED, DR NOTIFIED AND HE ORDERED COMPAZINE AND BENADRYL IV TO ALEVIATE, PATIENT REPORTS SOME RELIEF AND FURTHER RELIEF WITH MS IR. AMYTRIPTYLINE ORDERED HS TO BEGIN THIS EVENING. BED IN LOW POSITION, CALL LIGHT IN REACH. PATIENT CALLS APPROPRIATELY. IVIG RUNNING THROUGHOUT DAY AT 25ML/HR.
--- NOTE | 2023-01-01 04:34 | NUR ---
SHIFT SUMMARY PT A&O X 4. C/O PAIN TO BACK AND NECK TOWARD BEGINNING OF SHIFT. SCHEDULED PAIN MED GIVEN PER EMAR. PRN MED REQUESTED BY PT WHEN IT IS AVAILABLE. IT WAS GIVEN AND PT HAS BEEN RESTING QUIETLY SINCE. RESP EVEN AND UNLABORED. AWAKENS EASILY. CONT TO C/O PAIN TO BACK AND NECK, HOWEVER STATES IT IS LESS THAN IT WAS. WILL CONTINUE TO MONITOR AND PROVIDE CARE T/O SHIFT.
[2023-01-01 08:59] LABS: Magnesium, Blood 2.4 mg/dL (1.6-2.4)
[2023-01-01 09:05] LABS: Anion Gap Unable to Calculate mmol/L (6-16); Blood Urea Nitrogen 12 mg/dL (8-24); Bun/Creatinine Ratio 21.9 (12.0-20.0); CO2, Blood 37 mmol/L (21-32); Calcium, Blood 8.4 mg/dL (8.5-10.1); Chloride, Blood 104 mmol/L (98-108); Creatinine, Blood 0.55 mg/dL (0.40-1.00); Glomerular Filtration Rate 103 (60-); Glucose, Blood 90 mg/dL (70-99); Potassium, Blood 3.8 mmol/L (3.5-5.5); Sodium, Blood 140 mmol/L (136-145)
--- NOTE | 2023-01-01 11:06 | NUR ---
"Spiritual Care | Pt. Request Pt, is awake in bed amd welcomes my visit. Pt. is a recent re-admit, and is known to this rn dialysis. Pt. displays evidence of being aware of her condition as she verbalizes that she has dealt with he Myasthenia Gravis for some time. The Pt. displays evidence of being exhausted, Closed her vertical blinds, and prayed with her, Pt. verbalized gratitude for the spiritual care visit."
[2023-01-01] MEDS ORDERED: AMIT25 PO (15:40)
--- NOTE | 2023-01-01 18:03 | NUR ---
PATIENT D/C'D TO HOME VIA [facility]AXI. DC INSTRUCTIONS AND EDUCATION DISCUSSED WITH PATIENT AND COPY PROVIDED. [facility] [address] PATIENT DENIES ANY FURTHER QUESTIONS OR CONCERNS.
== END 2023-01-01 17:52 | disposition home health service (06) ==
LOC: ER 10:38 → MEDS 12:01
PROVIDERS: Emergency Medicine; ADMIT Student in an Organized Health Care Education/Training Program
DX: G70.01 Myasthenia gravis with (acute) exacerbation (principal); J96.11 Chronic respiratory failure with hypoxia; G89.29 Other chronic pain; E03.9 Hypothyroidism, unspecified; E78.5 Hyperlipidemia, unspecified; F32.A Depression, unspecified; G43.909 Migraine, unspecified, not intractable, without status migrainosus; K21.9 Gastro-esophageal reflux disease without esophagitis; J45.909 Unspecified asthma, uncomplicated; I10 Essential (primary) hypertension; Z88.8 Allergy status to other drugs, medicaments and biological substances; Z88.1 Allergy status to other antibiotic agents; Z79.899 Other long term (current) drug therapy
CPT/HCPCS: 36415; 80048; 80053; 83735; 85025; 96365; 96372; 96374; 96375; 96376; 97162; 97166; 97530; 97530-CQ; 99284-25; A9270; G0378; J0780; J1200; J1569; J1650; J1885; J2405; J7030

== ENCOUNTER → 2023-03-04 | Outpatient (CLI) | payer MEDICARE, BC ==
[~2023-03-04] MED LIST changes: +AMIT25 PO
== END | disposition home or self-care (01) ==
LOC: LAB SHORT 14:45 → LAB 14:45
DX: J34.89 Other specified disorders of nose and nasal sinuses (principal)
CPT/HCPCS: 87081

== ENCOUNTER 2023-06-18 16:05 | Inpatient (IN) | payer MEDICARE, BC ==
[~2023-06-18] VITALS: Ht 172.7 cm; Wt 95.0 kg
[2023-06-18 16:32] LABS: Base Excess Venous 6.3 mmol/L; Bicarbonate Venous 30.5 mmol/L (24.0-30.0); PCO2 Venous 28.9 mmHg (38-42); pH Blood Venous 7.59 (7.34-7.37)
[2023-06-18 16:40] LABS: BASOPHILS ABSOLUTE AUTO 0.01 K/mm3 (0.00-0.23); BASOPHILS PERCENT AUTO 0 % (0-2); EOSINOPHILS ABSOLUTE AUTO 0.04 K/mm3 (0.00-0.68); EOSINOPHILS PERCENT AUTO 1 % (0-6); Hematocrit 36.4 % (33.0-51.0); Hemoglobin 12.2 g/dL (11.5-16.0); IMMATURE GRAN ABSOLUTE AUTO 0.02 K/mm3 (0.00-0.10); IMMATURE GRAN PERCENT AUTO 0 % (0-1); LYMPHOCYTES PERCENT AUTO 23 % (21-46); MONOCYTES ABSOLUTE AUTO 0.43 K/mm3 (0.16-1.47); MONOCYTES PERCENT AUTO 7 % (4-13); Mean Corpuscular HGB 29.4 pg (26.0-34.0); Mean Corpuscular HGB Conc 33.5 g/dL (31.5-36.5); Mean Corpuscular Volume 88 fL (80-100); Mean Platelet Volume 11.2 fL (9.1-12.4); NEUTROPHILS ABSOLUTE AUTO 4.17 K/mm3 (1.96-9.15); NEUTROPHILS PERCENT AUTO 69 % (41-73); Platelet Count 249 K/mm3 (150-400); RDW Coefficient Variation 14.3 % (11.7-14.2); RDW Standard Deviation 45.8 fL (35.1-46.3); Red Blood Cell Count 4.15 M/mm3 (3.80-5.20); White Blood Cell Count 6.07 K/mm3 (4.00-11.30)
[2023-06-18 16:58] LABS: Magnesium, Blood 2.3 mg/dL (1.6-2.4)
[2023-06-18 17:07] LABS: Albumin, Blood 3.7 g/dL (3.4-5.0); Albumin/Globulin Ratio 0.8 (0.8-1.8); Bilirubin, Total 0.4 mg/dL (0.1-1.0); Bun/Creatinine Ratio 13.8 (12.0-20.0); Calcium, Blood 9.5 mg/dL (8.5-10.1); Creatinine, Blood 0.51 mg/dL (0.40-1.00); Globulin, Blood 4.9 g/dL (2.2-4.0); Potassium, Blood 3.3 mmol/L (3.5-5.5); Total Protein, Blood 8.6 g/dL (6.4-8.2)
[2023-06-18 18:52] LABS: Source, Urine Foley catheter
[2023-06-18 19:00] LABS: Appearance, Urine Clear (Clear); Bilirubin, Urine Neg (Neg); Blood, Urine Neg (Neg); Color, Urine Yellow (P-Yellow); Glucose Qualitative, Urine Neg (Neg); Ketones, Urine 3+ (Neg); Leukocyte Esterase, Urine Neg (Neg); Nitrite, Urine Neg (Neg); Protein, Urine 1+ (Neg); Specific Gravity, Urine 1.015 (1.003-1.022); Urobilinogen, Urine NORM (Normal)
--- NOTE | 2023-06-18 22:00 | NUR ---
PT ADMITTED TO ROOM ICU 04 FROM ED. ARRIVES TO ROOM AT 2100. PT NEEDS INCREASES IN PROPOFOL AND FENTNAYL FOR SEDATION. PT TRIES TO GET HER HANDS UP TO ETT. NEEDS FREQUENT REMINDERS, AND RESTRAINTS TO KEEP HER FROM PULLING TUBES. PT INTUBATED WITH AC 18, 350, FIO2 30 PERCENT WITH PEEP 5. PT AFEBRILE. VSS. WILL REVIEW CHART AND PLAN OF CARE FOR THIS PT.
[2023-06-18 23:11] LABS: Base Excess Venous 4.8 mmol/L; Bicarbonate Venous 29.4 mmol/L (24.0-30.0); PCO2 Venous 26.4 mmHg (38-42); pH Blood Venous 7.61 (7.34-7.37)
[2023-06-19] VITALS (63 sets, daily range): BP systolic 107–151; BP diastolic 63–131
[2023-06-19 01:31] LABS: Base Excess Venous 4.3 mmol/L; Bicarbonate Venous 27.8 mmol/L (24.0-30.0); PCO2 Venous 42.4 mmHg (38-42); pH Blood Venous 7.44 (7.34-7.37)
--- NOTE | 2023-06-19 01:45 | NUR ---
PT TAKEN TO CT AND RETURNED WITH NEGATIVE FOR PE. PT QUICKLY AWAKENS WHILE ON 50 MCG'S PROPOFOL/KG/MIN AND WITH FENTANYL AT 50 MCG'S PER HOUR. IGG THERAPY CONTINUES. NO S/S ADVERSE REACTION. SPOKE WITH DR STEARNS PER PHONE WITH RESULTS OF VBG, AND TO GIVE UPDATE ON PT. ORDERS HAVE BEEN RECEIVED.
[2023-06-19 02:22] LABS: Adenovirus Not Detected (NOT DETECT); Bordetella pertussis Not Detected (NOT DETECT); Chlamydophila pneumoniae Not Detected (NOT DETECT); Coronavirus 229E Not Detected (NOT DETECT); Coronavirus HKU1 Not Detected (NOT DETECT); Coronavirus NL63 Not Detected (NOT DETECT); Coronavirus OC43 Not Detected (NOT DETECT); Human Metapneumovirus Not Detected (NOT DETECT); Human Rhinovirus/Enterovirus Not Detected (NOT DETECT); Influenza A/2009-H1 Not Detected (NOT DETECT); Influenza A/H1 Not Detected (NOT DETECT); Influenza A/H3 Not Detected (NOT DETECT); Influenza B Not Detected (NOT DETECT); Mycoplasma pneumoniae Not Detected (NOT DETECT); Parainfluenza Virus 1 Not Detected (NOT DETECT); Parainfluenza Virus 2 Not Detected (NOT DETECT); Parainfluenza Virus 3 Not Detected (NOT DETECT); Parainfluenza Virus 4 Not Detected (NOT DETECT); Respiratory Syncytial Virus Not Detected (NOT DETECT); SARS-Cov-2 (COVID-19), BioFire Not Detected (NOT DETECT)
--- NOTE | 2023-06-19 05:50 | NUR ---
PT HAS REQUIRED FENTANYL DRIP AT 75 MCG'S/HOUR AND PROPOFOL AT 6O MCG'S/KG/MIN TO MAINTAIN VENT TOLERANCE. IV'S REMAIN PATENT WITH GOOD BLOOD RETURN. HAS COMPLETED IGG THERAPY WELL. HAVE NOT BEEN ABLE TO OBTAIN SAMPLE FROM ETT FOR SPUTUM SAMPLE. WILL DO SO WHEN ABLE. NO S/S ADVERSE REACTIONS TO ANTIBIOTIC AND PREDNISONE THERAPY. ABLE TO MAINTAIN >90 PERCENT SATURATION WITH CURRENT VENT SETTINGS. HAS HAD AM CHEST XRAY DONE. WILL CONTINUE TO MONITOR PT, AND WILL REPORT OFF TO ONCOMING RN.
[2023-06-19 10:15] LABS: Bun/Creatinine Ratio 12.5 (12.0-20.0); Calcium, Blood 7.9 mg/dL (8.5-10.1); Creatinine, Blood 0.48 mg/dL (0.40-1.00); Potassium, Blood 3.4 mmol/L (3.5-5.5)
--- NOTE | 2023-06-19 12:00 | NUR ---
1100-VOICE MESSAGE LEFT ON PHONE OF IN REGARDS TO PT BEING FOLLOWED LOCALLY BY SUGGESTION OF OUT OF TOWN NEUROLOGIST.
--- NOTE | 2023-06-19 16:29 | NUR ---
K-DUR ORDER PT, ALLOWED TABLETS TO DISSOLVE, STIRRED WATER, SHOOK SYRINGE, OGT NOT WANTING TO FLUSH. ATTEMPTING TO CLEAR AT THIS TIME. WILL GIVE DOSE OF LIQUID K+ WHEN TUBING CLEAR. PT IS AWAKE AND COOPERATIVE, SHE IS ON 50MCG/KG PROPOFOL, 75MG/HR FENTANYL AND ABLE TO COMMUNICATE WITH STAFF. SHE IS MAKING GOOD URINE, STOMACH WITH ACTIVE BOWEL SOUNDS, STOPPED THE LIS, JUST CLAMPED NOW T/O THE DAY.
--- NOTE | 2023-06-19 17:42 | NUR ---
GREGORY CONTINUES ON THE VENTILATOR WITH PLANS TO EXTUBATE TOMORROW WITH DR. STEARNS. SHE REMAINS ON 30% FIO2 AND PEEP 7, WITH TIDAL VOLUME OF 480. WHEN RESTING SHE BREATHES WITH THE VENTILATOR, WHEN SHE IS AWAKE SHE IS APPROPRIATE AND COOPERATIVE WITH HER CARE. SHE CONTINUES ON PROPOFOL 50MCG/KG, FENTANYL @ 75MCG/HR. SHE IS ABLE TO ASSIST WITH HER POSITIONING, REMAINS IN RESTRAINTS FOR SAFETY OF TUBE. COWART WITH GOOD URINE OUTPUT, OGT REPLACED FOR BLOCKAGE. NO COMMUNICATION WITH FAMILY.
--- NOTE | 2023-06-19 19:28 | NUR ---
ASSUMED CARE OF PT AT 1900. REPORT RECEIVED AT BEDSIDE. PT PRESENTS IN BED. INTUBATED. MAINTAINS SATURATIONS > 90 PERCENT. NO APPARENT DISTRESS TO NOTE. PT CURRENTLY RESTING. WILL REVIEW CHART AND PLAN OF CARE FOR THIS PT.
[2023-06-19 20:54] LABS: Base Excess Venous 1.5 mmol/L; Bicarbonate Venous 25.7 mmol/L (24.0-30.0); PCO2 Venous 41.2 mmHg (38-42); pH Blood Venous 7.41 (7.34-7.37)
[2023-06-20] VITALS (69 sets, daily range): BP systolic 106–169; BP diastolic 68–119
--- NOTE | 2023-06-20 00:45 | NUR ---
HAVE INCREASED FENTANYL DRIP TO 100 MCG'S/HOUR. PT CONTINUES TO MOUTH AND WRITE THAT SHE HAS PAIN. PROPOFOL AT 60 MCG'S/KG/MIN. PT AWAKENS VERY EASILY, AND BECOMES VERY ANXIOUS. CONTINUES ON IGG AT 100 PER HOUR. NO S/S REACTIONS TO NOTE. PT HAS NO S/S ADVERSE REACTIONS TO ANTIBIOTIC THERAPY. WILL CONTINUE TO MONITOR PT.
--- NOTE | 2023-06-20 01:53 | NUR ---
HAVE INCREASED PROPOFOL TO 65 MCG'S/KG/MNI AND FENTANYL TO 100 MCG'S/HOUR. PT CONTINUES TO BE AWAKE, AND TAPS ON RAILING TRYING TO GET STAFF IN ROOM. PT TRIES TO GET OUT OF RESTRAINTS AND TO TRY AND PULL AT HER ETT. RESTRAINTS ON APPROPRIATELY. PT REMINDED TO NOT TRY AND PULL AT LINES OR TUBES. CONTINUES ON IGG PRESCRIBED. NO S/S ADVERSE REACTIONS TO ANTIBIOTIC THERAPY.
[2023-06-20 04:24] LABS: Hematocrit 29.2 % (33.0-51.0); Hemoglobin 9.5 g/dL (11.5-16.0); Mean Corpuscular HGB 29.5 pg (26.0-34.0); Mean Corpuscular HGB Conc 32.5 g/dL (31.5-36.5); Mean Corpuscular Volume 91 fL (80-100); Mean Platelet Volume 11.4 fL (9.1-12.4); Platelet Count 166 K/mm3 (150-400); RDW Coefficient Variation 14.6 % (11.7-14.2); RDW Standard Deviation 47.8 fL (35.1-46.3); Red Blood Cell Count 3.22 M/mm3 (3.80-5.20); White Blood Cell Count 5.22 K/mm3 (4.00-11.30)
[2023-06-20 04:46] LABS: Bun/Creatinine Ratio 10.8 (12.0-20.0); Calcium, Blood 7.2 mg/dL (8.5-10.1); Creatinine, Blood 0.55 mg/dL (0.40-1.00); Potassium, Blood 3.7 mmol/L (3.5-5.5)
--- NOTE | 2023-06-20 06:07 | NUR ---
HAVE ATTEMPTED TO REDUCE PROPOFOL TO 60 MCG'S/KG/MIN WITH ONLY BRIEF SUCCESS. PT BECOMES VERY ANXIOUS AND TRIES TO GET OUT OF HER RESTRAINTS. DIFFICULT TO REDIRECT. DID INCREASE PROPOFOL BACK UP TO 70 MCG'S. FENTANYL CONTINUES AT 100 MCG'S HOUR. PT COMPLETED IFF INFUSIONS THIS NIGHT. NO S/S REACTIONS. WILL CONTINUE TO MONITOR PT, AND WILL REPORT OFF TO ONCOMING RN.
--- NOTE | 2023-06-20 08:30 | NUR ---
Assumed care of pt at 0700 with Zee SCOTT. Report received from Ovidio SCOTT. Pt receiving propofol at 70 mcg/kg/min and fentanyl and 100 mcg/hr. Decreased propofol to 60 mcg/kg/min. Soon afterwards, RASS 0, pt calm and cooperative with care. 7.5 cm ETT remains at expected location of 24 cm at gums. Vent settings ACVC 10/420/7/30%. SpO2 90% or greater. ETCO2 35.
--- NOTE | 2023-06-20 10:25 | NUR ---
EXTUBATION: PATIENT EXTUBATED PER ORDERS BY RT WITH RNS AT BEDSIDE. PATIENT TOLERATED WELL. PATIENT FOLLOWING DIRECTIONS. PATIENT PLACED ON 3LPM VIA NC PER HOME O2 USE. PATIENT SATURATIONS 93-98% ON 3L. LUNG SOUNDS CLEAR AND DIMINISHED. PATIENT REPORTS FATIGUE AND REQUESTS TO HAVE REST. ASSISTED PATIENT TO A COMFORTABLE POSITION.
[2023-06-20] MEDS ORDERED: RIZATRIPTAN10 MG SL (13:27)
[2023-06-20] MEDS ORDERED: Flonase 0.05% N16 GM (13:36)
--- NOTE | 2023-06-20 16:24 | NUR ---
CALL PLACED TO NEUROLOGY Attempted to reach pt's outpatient neurologist at [facility] regarding recommendations for continued IVIG. Pt's neurologist, Dr Awad, not available today. Spoke to content administrator provider who stated there are no specific recommendations in Dr Awad's note and no additional recommendations can be given. freight caller provider recommended that patient is seen by inpatient neurology. This RN placed call to Dr Collado to update. Provider stated that there are no additional recommendations with regard to myasthenia gravis and patient needs to be treated for pneumonia.
--- NOTE | 2023-06-20 19:00 | NUR ---
ASSUMED CARE OF PT AT THIS TIME. PT RESTING IN BED WITH NO VISITORS AT THIS TIME. VITALS WNL. SEE FULL ASSESSMENT FOR FURTHER INFORMATION.
--- NOTE | 2023-06-20 19:02 | NUR ---
Review of symptoms with patient post extubation. Mild headache and sore throat. aches all over no nausea. Anxious to get out of ICU. assessed patients needs. She would like assited living as she is needing more care. She has a niece that she has reviewed her advance diretives with and a core plan. We discussed that it may be best with her disease to keep intubation but remove cpr. She was willing to discuss. Advised with her spinal issues and health cpr would be difficult and may cause extrodianry suffering. She was appreciative of plan of care and direct and comprehensive conversation. Gaveher our offic card and information to give to her niece.
--- NOTE | 2023-06-20 19:23 | NUR ---
SHIFT SUMMARY: PATIENT SUCCESSFULLY EXTUBATED AT 10:24 THIS MORNING. PATIENT STABLE ON 2-3L VIA NC THROUGHOUT THE SHIFT. SPO2 96-100%. PATIENT DENIED SHORTNESS OF BREATH OR DIFFICULTY BREATHING THROUGHOUT THE SHIFT. NO DISTRESS NOTED. PATIENT REPORTS THAT SHE IS FEELING WEAK. PATIENT IS ABLE TO FREELY MOVE LIMBS AND PUSH AGAINST RESISTANCE. PATIENT ABLE TO STAND WITH 2 PERSON ASSIST AND FWW TO STAND PIVOT TO THE BSC. SHORTNESS OF BREATH NOTED WITH ACTIVITY. PATIENT ABLE TO RECOVER AT REST WITHOUT DESATURATIONS. PATIENT'S PAIN CONTROLLED WITH HER HOME DOSES OF MORPHINE. PATIENT DENIED ANXIETY THROUGHOUT THE SHIFT ONCE SHE WAS RESTARTED ON HER HOME DOSES OF MORPHINE.
[2023-06-21] VITALS (15 sets, daily range): BP systolic 145–158; BP diastolic 71–109
--- NOTE | 2023-06-21 06:43 | NUR ---
END OF SHIFT SUMMARY A/O X4. PLEASANT AND COOPERATIVE WITH CARE. PT RESTED IN CHAIR ALL BY BY CHOICE. CARDIAC- HYPERTENSIVE AT BASELINE. SBP 140-150'S THIS SHIFT. HR 60'S. RESP- PT REPORTS 2 LPM NC AT BASELINE. PT STAYED AT 2 LPM NC THIS SHIFT WITH SPO2 >93%. ENTIRE ICU WAS SMOKEY D/T CURRENT OUTSIDE WEATHER CONDITIONS. PT REPORTS THAT THIS WAS AFFECTING HER ALREADY SORE THROUGHT. PT WORE MASK MOST OF THE NIGHT. GI,- I/O DOCUMENTED FOR URINE OUT AND FLUID INTAKE. SEE CHART FOR DETAILS. TOLERATES PO MEDICATIONS WITH WATER WITHOUT DIFFICULTY. NO BM THIS SHIFT. IV ACCESS- PORT NOT ACCESSED BY THIS RN THIS SHIFT. CONTINUES TO BE HEPARIN LOCKED AT THIS TIME. RIGHT FOREARM IV PATENT AND GOOD FOR USE. NO OTHER SIGNIFICANT CHANGED TO REPORT THIS SHIFT. WILL CONTINUE TO MONITOR UNTIL REPORT GIVEN TO AM RN.
[2023-06-21 08:18] LABS: BASOPHILS ABSOLUTE AUTO 0.03 K/mm3 (0.00-0.23); BASOPHILS PERCENT AUTO 1 % (0-2); EOSINOPHILS ABSOLUTE AUTO 0.12 K/mm3 (0.00-0.68); EOSINOPHILS PERCENT AUTO 2 % (0-6); Hematocrit 36.1 % (33.0-51.0); Hemoglobin 11.9 g/dL (11.5-16.0); IMMATURE GRAN ABSOLUTE AUTO 0.01 K/mm3 (0.00-0.10); IMMATURE GRAN PERCENT AUTO 0 % (0-1); LYMPHOCYTES PERCENT AUTO 24 % (21-46); MONOCYTES ABSOLUTE AUTO 0.48 K/mm3 (0.16-1.47); MONOCYTES PERCENT AUTO 10 % (4-13); Mean Corpuscular HGB 29.1 pg (26.0-34.0); Mean Corpuscular Volume 88 fL (80-100); NEUTROPHILS ABSOLUTE AUTO 3.18 K/mm3 (1.96-9.15); NEUTROPHILS PERCENT AUTO 63 % (41-73); Platelet Count 201 K/mm3 (150-400); RDW Coefficient Variation 14.6 % (11.7-14.2); RDW Standard Deviation 47.1 fL (35.1-46.3); Red Blood Cell Count 4.09 M/mm3 (3.80-5.20); White Blood Cell Count 5.02 K/mm3 (4.00-11.30)
[2023-06-21 08:39] LABS: Albumin, Blood 3.3 g/dL (3.4-5.0); Albumin/Globulin Ratio 0.5 (0.8-1.8); Bilirubin, Total 0.3 mg/dL (0.1-1.0); Bun/Creatinine Ratio 9.2 (12.0-20.0); Calcium, Blood 8.2 mg/dL (8.5-10.1); Creatinine, Blood 0.43 mg/dL (0.40-1.00); Potassium, Blood 2.9 mmol/L (3.5-5.5); Total Protein, Blood 10.3 g/dL (6.4-8.2)
--- NOTE | 2023-06-21 09:29 | NUR ---
ASSUMPTION OF CARE AND MORNING ASSESSMENT: ASSUMED CARE OF PATIENT AT 0645. PATIENT RESTING IN THE RECLINER. PATIENT REPORTS THAT SHE WILL BE READY FOR HER PAIN MEDICATIONS WITH AM MEDICATIONS, OTHERWISH REPORTS THAT HER PAIN IS CONTROLLED. PATIENT REPORTS THAT SHE WASN'T ABLE TO GET SLEEP LAST NIGHT. PATIENT REPORTS SHE CONTINUES TO FEEL WEAK. PATIENT REPORTS THAT SHE CONTINUES TO FEEL CLAMMY AND TO SWEAT MORE THAN USUAL. PATIENT NOTED THIS YESTERDAY WELL. PATIENT DENIES SHORTNESS OF BREATH OR DIFFICULTY BREATHING. CONTINUES TO BE STABLE ON HER HOME O2 OF 2L VIA NC. SPO2 98-99% CURRENTLY.
--- NOTE | 2023-06-21 15:30 | NUR ---
Patient transferred to medical floor at 1523 accompanied by RN. Pt had been up in recliner all morning preceeding transfer. Transferred from recliner to wheelchair without difficulty. Worked with PT/OT earlier today, but was limited by dizziness and "feeling sweaty". Pt concerned that she may be having a reaction to a medication, but then later stated that this happens to her frequently at home. Reviewed medications with ICU pharmacist who stated this may be caused by the mestinon. Pt on 2 LPM NC with SpO2 90% or greater. VSS. Patient updating family on tx out of unit. Report given to RN to assume care. Chart/medications/belongings transferred with patient.
--- NOTE | 2023-06-22 04:36 | NUR ---
SHIFT SUMMARY- PT ALERT AND ORIENTED AND CALLS APPROPRIATELY. PT HAS RECIEVED PRN PAIN MEDS FAIRLY REGULARLY, HOME DOSE PER PT. NO ACUTE CHANGE T/O THE NIGHT. PT IN BED, BED IN LOW POSITION CALL LIGHT IN REACH NO S&S OF DISTRESS NOTED.
[2023-06-22 05:55] VITALS: BP 136/76
[2023-06-22 07:19] VITALS: BP 130/80
[2023-06-22 08:45] LABS: Bun/Creatinine Ratio 14.1 (12.0-20.0); Calcium, Blood 7.8 mg/dL (8.5-10.1); Creatinine, Blood 0.57 mg/dL (0.40-1.00); Magnesium, Blood 2.4 mg/dL (1.6-2.4); Potassium, Blood 3.4 mmol/L (3.5-5.5)
[2023-06-22 14:37] VITALS: BP 121/70
--- NOTE | 2023-06-22 17:37 | NUR ---
DAYSHIFT SUMMARY Patient alert & oriented x4. Transfering to BSC with minimal assistance. 2L oxygen to maintain sats. Patient c/o chest pain, states it comes and goes. Morphine PRN given for pain, PRN effective. IV ABX administred, plan to stay overnight and possible discharge home tomorrow. Vital signs stable. Will continue plan of care.
[2023-06-22 20:15] VITALS: BP 119/71
[2023-06-23 05:11] VITALS: BP 106/62
[2023-06-23 05:36] LABS: Hematocrit 35.2 % (33.0-51.0); Hemoglobin 11.4 g/dL (11.5-16.0); Mean Corpuscular HGB 29.4 pg (26.0-34.0); Mean Corpuscular HGB Conc 32.4 g/dL (31.5-36.5); Mean Corpuscular Volume 91 fL (80-100); Mean Platelet Volume 11.1 fL (9.1-12.4); Platelet Count 215 K/mm3 (150-400); RDW Coefficient Variation 14.7 % (11.7-14.2); RDW Standard Deviation 49.1 fL (35.1-46.3); Red Blood Cell Count 3.88 M/mm3 (3.80-5.20); White Blood Cell Count 4.65 K/mm3 (4.00-11.30)
--- NOTE | 2023-06-23 06:30 | NUR ---
END OF SHIFT SUMMARY PT KIND AND COOPERATIVE WITH CARE PROVIDED. A&O x4, VSS. PT ON 2L O2 VIA NC. NO RESP DISTRESS NOTED. PT SLEPT SOME OF THE NIGHT. PAIN MANAGED WITH PRN MORPHINE AND MUSCLE RELAXER, TIZANIDINE. PT TOLERATING IV ANTIBIOTICS. PT C/O INTERMITTENT L SIDE CHEST PAIN BY CLAVICAL REGION. PT STATED THAT THE PAIN STAYS IN THAT AREA, IT DOES NOT RADIATE DOWN L ARM. CALL LIGHT WITHIN REACH, WCTM.
[2023-06-23 06:43] LABS: Calcium, Blood 8.6 mg/dL (8.5-10.1); Creatinine, Blood 0.56 mg/dL (0.40-1.00); Potassium, Blood 3.8 mmol/L (3.5-5.5)
[2023-06-23 07:21] VITALS: BP 140/87
[2023-06-23 15:23] VITALS: BP 117/78
--- NOTE | 2023-06-23 18:21 | NUR ---
SHIFT SUMMARY NO ACUTE CHANGES THIS SHIFT. PATIENT IS ALERT AND ORIENTED, ABLE TO MAKE HER NEEDS KNOWN. SHE IS ON 2L O2 VIA NC, THIS IS HER REPORTED BASELINE USE AT HOME. SHE IS INDEPENDNENT TO THE BEDSIDE COMMODE AND WAS ABLE TO AMBULATE TO THE CHAIR FOR DINNER WITH A FWW WITH STAND BY ASSISTANCE. ANTICIPATE PATIENT TO DC HOME SOON TOMORROW 06/24. MEDICATED FOR CHRONIC PAIN PER SCHEDULE AND X2 PRN. BED LOW AND LOCKED, CALL LIGHT WITHIN REACH. WILL CONT TO MONITOR AND PROVIDE REPORT TO ONCOMING RN.
[2023-06-23 20:31] VITALS: BP 153/82
--- NOTE | 2023-06-24 04:11 | NUR ---
END OF SHIFT SUMMARY PT KIND AND PLEASANT WITH CARE PROVIDED. PT A&O x4. VSS, AFEBRILE. PT INDEPENDENT WITH ADL's. CONTINENT OF B/B, USES THE BSC. PT C/O PAIN TO NECK AND SHOULDERS/GENERALIZED DISCOMFORT. PAIN MANAGED WITH PRN INSTANT RELEASE MORPHINE AND SCHEDULED MORPHINE. PAIN MEDS EFFECTIVE, BRINGING PAIN LEVEL FROM A 8/10 TO A 3/10. PT SLEPT WELL OVERNIGHT. CALL LIGHT WITHIN REACH, WCTM.
[2023-06-24 06:13] VITALS: BP 117/65
[2023-06-24 07:10] VITALS: BP 105/68
[2023-06-24 14:55] VITALS: BP 126/65
--- NOTE | 2023-06-24 16:49 | NUR ---
SHIFT SUMMARY PT A&O4 AND PLEASANT. PT C/O CHRONIC BACK PAIN THAT RADIATES THROUGH OUT. PT WORKED WITH PHYSCIAL THERAPY AND OT TODAY. TOLERATED WELL AND WAS UP TO CHAIR FOR SOME TIME. PT ON 2L OF OXYGEN WHICH IS HER BASELINE. NO ACUTE CHANGES. VSS. BED IN LOWEST POSITION AND CALL LIGHT IN REACH.
[2023-06-24 19:53] VITALS: BP 125/78
[2023-06-25 05:03] VITALS: BP 111/74
[2023-06-25 06:06] LABS: Anion Gap Unable to Calculate mmol/L (6-16); Blood Urea Nitrogen 14 mg/dL (8-24); Bun/Creatinine Ratio 27.2 (12.0-20.0); CO2, Blood 36 mmol/L (21-32); Calcium, Blood 9.3 mg/dL (8.5-10.1); Chloride, Blood 103 mmol/L (98-108); Creatinine, Blood 0.52 mg/dL (0.40-1.00); Glomerular Filtration Rate 104 (60-); Glucose, Blood 94 mg/dL (70-99); Sodium, Blood 138 mmol/L (136-145)
--- NOTE | 2023-06-25 06:45 | NUR ---
UNEVENTFUL NIGHT, NO ACUTE CHANGES NOTED. PT GIVEN HIGH LEVELS OF PAIN MEDS, SEE EMAR FOR DETAILS, THIS IS HER BASELINE. ON 2L NC, WHICH IS ALSO BASELINE. AO, PLEASANT, VSS ON 2L. FIRE SAFETY REVIEWED.
[2023-06-25 07:30] VITALS: BP 113/72
[2023-06-25 15:41] VITALS: BP 127/68
--- NOTE | 2023-06-25 17:44 | NUR ---
SHIFT SUMMARY PT IS ALERT AND ORIENTED X4. KIND AND PLEASANT. NO ACUTE CHANGES. TREATED PAIN PER EMAR. PT IS ABLE TO MAKE NEEDS KNOWN. PT/OT CONTINUES TO FOLLOW AND WORK WITH PT.
[2023-06-25 19:26] VITALS: BP 138/106
[2023-06-26 04:30] VITALS: BP 109/63
[2023-06-26 07:50] VITALS: BP 112/67
--- NOTE | 2023-06-26 13:10 | NUR ---
DISCHARGE PT DISCHARGED WITH HOME HEALTH WE ARE CURRENTLY WAITING ON TIME FOR TRANSPORTAITON. DISCHARGE INSTRUCITONS DISCUSSED WITH PT. NO QUESTIONS OR CONCERNS AT THIS TIME. SHE IS ALERT AND ORIENTED X4. TREATED PAIN PER EMAR. CURRENTLY SITTING UP IN CHAIR EATING LUNCH.
== END 2023-06-26 17:31 | disposition home health service (06) | DRG 208 ==
LOC: ER 16:05 → MEDS 20:20 → ICUE 20:20 → MEDS 06-21 15:34 → ENPENDDIS 06-26 12:57 → MEDS 06-26 17:31
PROVIDERS: Family Medicine; Hospitalist; Internal Medicine; Nurse Practitioner Acute Care; Student in an Organized Health Care Education/Training Program; ADMIT Internal Medicine
PROC: 5A1945Z Respiratory Ventilation, 24-96 Consecutive Hours (ICD-10-PCS; principal; 2023-06-18)
PROC: 0BH17EZ Insertion of Endotracheal Airway into Trachea, Via Natural or Artificial Opening (ICD-10-PCS; 2023-06-18)
PROC: 0DH67UZ Insertion of Feeding Device into Stomach, Via Natural or Artificial Opening (ICD-10-PCS; 2023-06-18)
PROC: 4A033R1 Measurement of Arterial Saturation, Peripheral, Percutaneous Approach (ICD-10-PCS; 2023-06-18)
DX: J96.21 Acute and chronic respiratory failure with hypoxia (principal); G70.01 Myasthenia gravis with (acute) exacerbation; J18.9 Pneumonia, unspecified organism; E87.3 Alkalosis; E87.1 Hypo-osmolality and hyponatremia; J98.11 Atelectasis; F11.20 Opioid dependence, uncomplicated; E03.9 Hypothyroidism, unspecified; Z20.822 Contact with and (suspected) exposure to COVID-19; K21.9 Gastro-esophageal reflux disease without esophagitis; M19.90 Unspecified osteoarthritis, unspecified site; M81.0 Age-related osteoporosis without current pathological fracture; I10 Essential (primary) hypertension; G89.4 Chronic pain syndrome; M79.7 Fibromyalgia; J45.909 Unspecified asthma, uncomplicated; Z74.09 Other reduced mobility; E87.6 Hypokalemia; M40.209 Unspecified kyphosis, site unspecified; M54.9 Dorsalgia, unspecified; Z88.8 Allergy status to other drugs, medicaments and biological substances; Z88.1 Allergy status to other antibiotic agents; Z79.899 Other long term (current) drug therapy; Z98.890 Other specified postprocedural states; Z90.710 Acquired absence of both cervix and uterus; Z90.89 Acquired absence of other organs; Z79.890 Hormone replacement therapy; Z87.891 Personal history of nicotine dependence
CPT/HCPCS: 0202U; 31500; 36415; 36600; 51702; 71045; 71275; 80048; 80053; 82803; 83735; 83880; 84145; 84484; 85025; 85027; 87040; 87070; 87205; 87449; 93005; 93010; 94002; 94003; 94760; 96374-59; 96375; 97110; 97112; 97116; 97162; 97165; 97530; 97535; 99291-25; A9270; C9113; J0456; J0692; J0696; J1170; J1459; J1642; J1650; J2704; J3010; J3370; J3480; J7030; J7050; J7512; Q9967

== ENCOUNTER 2023-09-15 02:39 | Emergency (ER) | payer MEDICARE, BC ==
[~2023-09-15] VITALS: Ht 157.5 cm; Wt 90.7 kg
[~2023-09-15 02:39] MED LIST changes: +RIZATRIPTAN10 MG SL
[2023-09-15 03:10] LABS: BASOPHILS ABSOLUTE AUTO 0.01 K/mm3 (0.00-0.23); BASOPHILS PERCENT AUTO 0 % (0-2); EOSINOPHILS ABSOLUTE AUTO 0.01 K/mm3 (0.00-0.68); EOSINOPHILS PERCENT AUTO 0 % (0-6); Hematocrit 41.5 % (33.0-51.0); Hemoglobin 13.5 g/dL (11.5-16.0); IMMATURE GRAN ABSOLUTE AUTO 0.02 K/mm3 (0.00-0.10); IMMATURE GRAN PERCENT AUTO 0 % (0-1); LYMPHOCYTES ABSOLUTE AUTO 0.99 K/mm3 (0.84-5.20); LYMPHOCYTES PERCENT AUTO 13 % (21-46); MONOCYTES ABSOLUTE AUTO 0.48 K/mm3 (0.16-1.47); MONOCYTES PERCENT AUTO 6 % (4-13); Mean Corpuscular HGB 29.1 pg (26.0-34.0); Mean Corpuscular HGB Conc 32.5 g/dL (31.5-36.5); Mean Corpuscular Volume 89 fL (80-100); NEUTROPHILS ABSOLUTE AUTO 6.18 K/mm3 (1.96-9.15); NEUTROPHILS PERCENT AUTO 80 % (41-73); Platelet Count 234 K/mm3 (150-400); RDW Coefficient Variation 13.5 % (11.7-14.2); RDW Standard Deviation 44.3 fL (35.1-46.3); Red Blood Cell Count 4.64 M/mm3 (3.80-5.20); White Blood Cell Count 7.69 K/mm3 (4.00-11.30)
[2023-09-15 03:28] LABS: Albumin, Blood 3.4 g/dL (3.4-5.0); Albumin/Globulin Ratio 0.5 (0.8-1.8); Bilirubin, Total 0.3 mg/dL (0.1-1.0); Bun/Creatinine Ratio 12.4 (12.0-20.0); Calcium, Blood 9.2 mg/dL (8.5-10.1); Creatinine, Blood 0.48 mg/dL (0.40-1.00); Globulin, Blood 7.1 g/dL (2.2-4.0); Potassium, Blood 2.9 mmol/L (3.5-5.5); Total Protein, Blood 10.5 g/dL (6.4-8.2)
[2023-09-15 03:52] LABS: Source, Urine Straight Cath
[2023-09-15 03:54] LABS: Bilirubin, Urine Neg (Neg); Blood, Urine 3+ (Neg); Glucose Qualitative, Urine Neg (Neg); Ketones, Urine 3+ (Neg); Leukocyte Esterase, Urine 1+ (Neg); Nitrite, Urine Neg (Neg); Protein, Urine 3+ (Neg); Urobilinogen, Urine 1+ (Normal)
[2023-09-15 04:07] LABS: Amorphous Light (0-Heavy); Appearance, Urine Hazy (Clear); Bacteria Few /hpf; Color, Urine Yellow (P-Yellow); Mucus Heavy (0-Heavy); Red Blood Cells, Urine 0-2 /hpf (0-2); Squamous Epithelial Cells Rare /hpf (Few); White Blood Cells, Urine 0-2 /hpf (0-5)
[2023-09-15 06:01] VITALS: BP 154/74
== END 2023-09-15 06:00 | disposition home or self-care (01) ==
LOC: ER 02:39
PROVIDERS: Student in an Organized Health Care Education/Training Program
DX: K52.9 Noninfective gastroenteritis and colitis, unspecified (principal); E87.6 Hypokalemia; T40.2X5A Adverse effect of other opioids, initial encounter; I10 Essential (primary) hypertension; G70.00 Myasthenia gravis without (acute) exacerbation; E03.9 Hypothyroidism, unspecified; J96.11 Chronic respiratory failure with hypoxia; Z88.1 Allergy status to other antibiotic agents; Z88.8 Allergy status to other drugs, medicaments and biological substances; Z79.51 Long term (current) use of inhaled steroids; Z79.899 Other long term (current) drug therapy; Z79.890 Hormone replacement therapy; Z87.891 Personal history of nicotine dependence
CPT/HCPCS: 51701; 74177; 80053; 81001; 83690; 85025; 93005; 93010; 96361; 96365; 96375; 99285-25; A9270; J2270; J2405; J3475; J7030; Q9967

== ENCOUNTER 2023-09-21 14:58 | Emergency (ER) | payer MEDICARE, BC ==
[~2023-09-21] VITALS: Ht 157.5 cm; Wt 98.9 kg
[2023-09-21 15:32] LABS: BASOPHILS ABSOLUTE AUTO 0.01 K/mm3 (0.00-0.23); BASOPHILS PERCENT AUTO 0 % (0-2); EOSINOPHILS ABSOLUTE AUTO 0.13 K/mm3 (0.00-0.68); EOSINOPHILS PERCENT AUTO 4 % (0-6); Hemoglobin 10.7 g/dL (11.5-16.0); IMMATURE GRAN ABSOLUTE AUTO 0.01 K/mm3 (0.00-0.10); IMMATURE GRAN PERCENT AUTO 0 % (0-1); LYMPHOCYTES PERCENT AUTO 39 % (21-46); MONOCYTES ABSOLUTE AUTO 0.39 K/mm3 (0.16-1.47); MONOCYTES PERCENT AUTO 13 % (4-13); Mean Corpuscular HGB 29.3 pg (26.0-34.0); Mean Corpuscular HGB Conc 31.5 g/dL (31.5-36.5); Mean Corpuscular Volume 93 fL (80-100); Mean Platelet Volume 11.4 fL (9.1-12.4); NEUTROPHILS ABSOLUTE AUTO 1.37 K/mm3 (1.96-9.15); NEUTROPHILS PERCENT AUTO 44 % (41-73); Platelet Count 165 K/mm3 (150-400); RDW Coefficient Variation 13.6 % (11.7-14.2); Red Blood Cell Count 3.65 M/mm3 (3.80-5.20); White Blood Cell Count 3.11 K/mm3 (4.00-11.30)
[2023-09-21 16:21] LABS: Albumin, Blood 3.1 g/dL (3.4-5.0); Albumin/Globulin Ratio 0.6 (0.8-1.8); Bilirubin, Total 0.2 mg/dL (0.1-1.0); Calcium, Blood 8.7 mg/dL (8.5-10.1); Creatinine, Blood 0.55 mg/dL (0.40-1.00); Potassium, Blood 3.8 mmol/L (3.5-5.5); Total Protein, Blood 8.1 g/dL (6.4-8.2)
[2023-09-21] MEDS ORDERED: PROBIOTIC1 EA13 PO (20:29)
[2023-09-21] MEDS ORDERED: AMOCLA875 PO (20:29)
[2023-09-21 20:30] VITALS: BP 128/69
== END 2023-09-21 22:07 | disposition home or self-care (01) ==
LOC: ER 14:58
PROVIDERS: Physician Assistant
DX: M54.50 Low back pain, unspecified (principal); G89.29 Other chronic pain; K52.9 Noninfective gastroenteritis and colitis, unspecified; G70.00 Myasthenia gravis without (acute) exacerbation; E27.1 Primary adrenocortical insufficiency; E03.9 Hypothyroidism, unspecified; K21.9 Gastro-esophageal reflux disease without esophagitis; I10 Essential (primary) hypertension; M79.7 Fibromyalgia; J96.11 Chronic respiratory failure with hypoxia; Z99.81 Dependence on supplemental oxygen; Z87.891 Personal history of nicotine dependence; Z79.891 Long term (current) use of opiate analgesic; Z88.5 Allergy status to narcotic agent; Z88.8 Allergy status to other drugs, medicaments and biological substances; Z88.1 Allergy status to other antibiotic agents; Z79.899 Other long term (current) drug therapy
CPT/HCPCS: 74177; 80053; 83690; 85025; 96374; 99284-25; J2270; Q9967

== ENCOUNTER → 2023-10-02 | Outpatient (CLI) | payer MEDICARE, BC ==
[~2023-10-02] MED LIST changes: +AMOCLA875 PO; +PROBIOTIC1 EA13 PO
== END ==
LOC: LAB 15:49 → LAB SHORT 15:49
DX: R82.90 Unspecified abnormal findings in urine (principal)
CPT/HCPCS: 87086

== ENCOUNTER 2023-11-10 06:16 | Observation (INO) | payer MEDICARE, BC ==
[~2023-11-10] VITALS: Ht 152.4 cm; Wt 95.5 kg
[2023-11-10 08:52] LABS: Source, Urine Straight Cath
[2023-11-10 08:56] LABS: Appearance, Urine Hazy (Clear); Bilirubin, Urine Neg (Neg); Blood, Urine 2+ (Neg); Color, Urine Yellow (P-Yellow); Glucose Qualitative, Urine Neg (Neg); Ketones, Urine 4+ (Neg); Leukocyte Esterase, Urine Neg (Neg); Nitrite, Urine Neg (Neg); Protein, Urine 3+ (Neg); Urobilinogen, Urine 1+ (Normal)
[2023-11-10 09:33] LABS: Red Blood Cells, Urine 0-2 /hpf (0-2)
[2023-11-10 09:34] LABS: Bacteria Rare /hpf; Squamous Epithelial Cells Rare /hpf (Few)
[2023-11-10 09:35] LABS: Amorphous Heavy (0-Heavy); Mucus Heavy (0-Heavy); Renal Epithelial Many /hpf (0-Rare)
[2023-11-10 09:41] LABS: BASOPHILS ABSOLUTE AUTO 0.01 K/mm3 (0.00-0.23); BASOPHILS PERCENT AUTO 0 % (0-2); EOSINOPHILS PERCENT AUTO 0 % (0-6); Hematocrit 36.6 % (33.0-51.0); Hemoglobin 12.2 g/dL (11.5-16.0); IMMATURE GRAN ABSOLUTE AUTO 0.03 K/mm3 (0.00-0.10); IMMATURE GRAN PERCENT AUTO 0 % (0-1); LYMPHOCYTES ABSOLUTE AUTO 0.87 K/mm3 (0.84-5.20); LYMPHOCYTES PERCENT AUTO 9 % (21-46); MONOCYTES PERCENT AUTO 4 % (4-13); Mean Corpuscular HGB 29.8 pg (26.0-34.0); Mean Corpuscular HGB Conc 33.3 g/dL (31.5-36.5); Mean Corpuscular Volume 90 fL (80-100); Mean Platelet Volume 10.8 fL (9.1-12.4); NEUTROPHILS ABSOLUTE AUTO 8.87 K/mm3 (1.96-9.15); NEUTROPHILS PERCENT AUTO 87 % (41-73); Platelet Count 243 K/mm3 (150-400); RDW Coefficient Variation 13.9 % (11.7-14.2); RDW Standard Deviation 45.3 fL (35.1-46.3); Red Blood Cell Count 4.09 M/mm3 (3.80-5.20); White Blood Cell Count 10.18 K/mm3 (4.00-11.30)
[2023-11-10 10:03] LABS: Albumin, Blood 3.3 g/dL (3.4-5.0); Albumin/Globulin Ratio 0.6 (0.8-1.8); Bilirubin, Total 0.4 mg/dL (0.1-1.0); Bun/Creatinine Ratio 26.6 (12.0-20.0); Calcium, Blood 9.2 mg/dL (8.5-10.1); Creatinine, Blood 0.41 mg/dL (0.40-1.00); Globulin, Blood 5.9 g/dL (2.2-4.0); Potassium, Blood 3.5 mmol/L (3.5-5.5); Total Protein, Blood 9.2 g/dL (6.4-8.2)
[2023-11-10 10:26] LABS: Influenza A, PCR NEGATIVE (NEGATIVE); Influenza B, PCR NEGATIVE (NEGATIVE); Resp Syncytial Virus, PCR NEGATIVE (NEGATIVE); SARS-Cov-2 (COVID-19) PCR, MMC NEGATIVE (NEGATIVE)
--- NOTE | 2023-11-10 13:30 | NUR ---
ASSUMED CARE: PT ARRIVED FROM ED. REPORT RECIEVED FROM SONIA BELLO. PT ON 2L O2 VIA NC WHICH IS BASELINE. RIGHT AXILLARY WOUND SITE HAS DRESSING OF NONADHERENT GUAZE AND TAPE FROM I AND D PERFORMED IN ED. PHOTOS IN CHART OF WOUND SITES. CALL LIGHT IN REACH
[2023-11-10 13:34] VITALS: BP 164/92
--- NOTE | 2023-11-10 15:53 | NUR ---
CALL TO DR HUERTA TO LET HER KNOW THAT PT IS HAVING DIARRHEA AND IT APPEARED TO HAVE BLOOD IN IT. DR REMINDED STAFF THAT PT ALSO HAS LESION ON LABIA THAT COULD BE BLEEDING SO TO JUST KEEP AN EYE ON SITES. STATES NO WOUND CARE ORDERS AT THIS TIME FOR RIGHT AXILLARY LESION AND THAT SHE WOULD EVALUATE TOMORROW
[2023-11-10 16:07] VITALS: BP 147/77
--- NOTE | 2023-11-10 17:53 | NUR ---
SHIFT SUMMARY: PT CONTINUES TO HAVE DIARRHEA AND NAUSEA. MEDICATED FOR NAUSEA AND PAIN X1. WOUND CARE COMPLETED IN ED AND DR TO REEVALUATE TOMORROW FOR WOUND ORDERS. CALL LIGHT IN REACH. 1 ASSIST TO BSC. NO ACUTE NEEDS AT THIS TIME.
[2023-11-10 20:38] VITALS: BP 167/101
[2023-11-10 20:43] VITALS: BP 160/78
[2023-11-10 23:24] VITALS: BP 138/70
[2023-11-11] VITALS (7 sets, daily range): BP systolic 128–166; BP diastolic 65–88
--- NOTE | 2023-11-11 03:42 | NUR ---
SHIFT SUMMARY PT ALERT AND ORIENTED X 4, COOPERATIVE WITH CARE AND ABLE TO MAKE NEEDS KNOWN. KYLE. SHE IS ON 2L NC WHICH IS HER BASELINE, AND MAINTAINING 02 SATURATION ABOVE 92%, SHE HAS DENIED SOB ALL SHIFT. HR SR 50'S, SHE HAS DENIED CHEST PAIN/PRESSURE ALL SHIFT. AT BEGINNING OF SHIFT PT COMPLAINED OF ALL OVER PAIN AND SHE WAS REPOSITIONED AND MEDICATED PER EMAR. PT HAS NOT COMPLAINED OF PAIN SINCE BEGINNING OF SHIFT. PT HAD A BOUT OF NAUSEA EARLY ON IN THE SHIFT, AND WAS MEDICATED PER EMAR. SHE HAS NOT COMPLAINED OF NAUSEA SINCE. PT'S IV TO R HAND WAS REMOVED BY PT ON ACCIDENT. IV TO R WRIST FLUSHED AND PATENT. PT HAS BEEN SLEEPING FOR THE MAJORITY OF THE SHIFT. SHE IS CURRENTLY UP EATING A SUGAR FREE JELLO PER HER REQUEST. CALL LIGHT WITHIN REACH.
[2023-11-11 04:49] LABS: BASOPHILS ABSOLUTE AUTO 0.02 K/mm3 (0.00-0.23); BASOPHILS PERCENT AUTO 0 % (0-2); EOSINOPHILS ABSOLUTE AUTO 0.05 K/mm3 (0.00-0.68); EOSINOPHILS PERCENT AUTO 1 % (0-6); Hematocrit 31.5 % (33.0-51.0); Hemoglobin 10.2 g/dL (11.5-16.0); IMMATURE GRAN ABSOLUTE AUTO 0.02 K/mm3 (0.00-0.10); IMMATURE GRAN PERCENT AUTO 0 % (0-1); LYMPHOCYTES ABSOLUTE AUTO 1.75 K/mm3 (0.84-5.20); LYMPHOCYTES PERCENT AUTO 25 % (21-46); MONOCYTES ABSOLUTE AUTO 0.66 K/mm3 (0.16-1.47); MONOCYTES PERCENT AUTO 10 % (4-13); Mean Corpuscular HGB 29.1 pg (26.0-34.0); Mean Corpuscular HGB Conc 32.4 g/dL (31.5-36.5); Mean Corpuscular Volume 90 fL (80-100); Mean Platelet Volume 11.1 fL (9.1-12.4); NEUTROPHILS ABSOLUTE AUTO 4.43 K/mm3 (1.96-9.15); NEUTROPHILS PERCENT AUTO 64 % (41-73); Platelet Count 201 K/mm3 (150-400); RDW Standard Deviation 46.6 fL (35.1-46.3); White Blood Cell Count 6.93 K/mm3 (4.00-11.30)
[2023-11-11 05:10] LABS: Bun/Creatinine Ratio 14.8 (12.0-20.0); Calcium, Blood 8.1 mg/dL (8.5-10.1); Creatinine, Blood 0.41 mg/dL (0.40-1.00)
--- NOTE | 2023-11-11 08:15 | NUR ---
Initial Asseesment: Patient is awake sitting up in bed ready for breakfast. She has a myathesenia gravis with the following symptoms: double vision with out her glasses, dizziness with focused assessment, difficulty swallowing at times, and intermittent weakness. She reports she is having some genearlized pain, AM dose of PO Morphine given. HRR, she is in SR with a rate in the 60s-70s. LS Coarse and DIM, she does not have a cough at present. She is high 90s on her home dose of 2L oxygen. BT+, she states she had a BM yesterday. Patient states her nausea has improved and she feels that her swallow has improved since her arrival to PCU. She has scattered pustules two in her right arm pit-one has been lanced and has narrow packing with purlent drainiage. She has another one in her right arm pit, her mid chest at the base of her sternum, and one open area on her left labia that also has purlent drainage. There is an inpatient wound counslt for guidance on dressings. She is able to swallow her AM medications one at a time with a sip of water. She denies other needs at this time, call light in reach.
[2023-11-11] MEDS ORDERED: BUTALB-ACETAMI1 EAC5 PO (10:31)
--- NOTE | 2023-11-11 15:17 | NUR ---
WOUND CARE PT WITH BOILS TO R AXILLA, ABDOMEN AND L GROIN. CULTURE MRSA POSITIVE. WOULD RECOMMEND MUPIROCIN OINTMENT TID X 10 DAYS. WOULD COVER ABDOMEN AND AXILLA WOUNDS WITH BORDERED GAUZE, GROIN WOUND WITH FOLDED 4X4 GAUZE.
--- NOTE | 2023-11-11 18:57 | NUR ---
SUMMARY: Patient has been alert and oriented T/O the shift. She has C/O chronic pain and headache, she was medicated with home Morphine. She has a history of Myasthenia Gravis, she has some weakness and difficulty swallowing-but this is improving since admission. HRR, SR in the 60s-70s blood pressure has been 140s-150s systolic. LS DIM T/O, Biox has been stable with home dose of 2L oxygen. BT+, she was only able to tolerate clear liquids yesterday and small amounts of regular food today. PPP. She has pustules scattered T/O her body, two in her right axilla, one was lanced and has packing with purlent drainiage gauze dressing covering. Other pustules to her chest and one open one to her left labia that is open and draining purlent drainiage as well. bulb sorter came to see the patient, see new orders. No other changes this shift. Report given to Day HUMPHREY RN.
[2023-11-12 03:05] VITALS: BP 114/72
--- NOTE | 2023-11-12 03:18 | NUR ---
SHIFT SUMMARY PT ALERT AND ORIENTED X 4, COOPERATIVE WITH CARE AND ABLE TO MAKE NEEDS KNOWN. KYLE. SHE IS ON 2L NC WHICH IS HER BASELINE AND MAINTAINING O2 SATURATION ABOVE 92%, SHE HAS DENIED SOB ALL SHIFT. HER HR IS SR 60'S-70'S, SHE HAS DENIED CHEST PAIN ALL SHIFT. PT SAID SHE HAD A MIGRAINE AT BEGINNING OF SHIFT AND ALL OVER PAIN. SHE WAS MEDICATED PER EMAR AND HASN'T COMPLAINED OF MIGRAINE OR ALL OVER PAIN SINCE. PT HAS NOT COMPLAINED OF NAUSEA THIS SHIFT. WOUND CARE WAS PERFORMED PER ORDERS. IV TO R FA PATENT/FLUSHED/SALINE LOCKED. SHE IS CURRENTLY SLEEPING IN BED, SYMMETRICAL RISE AND FALL OF CHEST, RR 16, AND O2 SATURATION ABOVE 92%. CALL LIGHT WITHIN REACH.
[2023-11-12 08:10] VITALS: BP 119/80
--- NOTE | 2023-11-12 08:47 | NUR ---
NURSING PCU DAYSHIFT: Assumed care of pt at approx 0700. A/O, very pleasant, cooperative w/care. C/O 6/10 chronic L shoulder pain, treating w/positioning and meds as ordered. General weakness, ambulating w/FWW. Scattered red/raised pustules, some draining w/dressings in place. Tele in place, NSR, SBP 119 prior to a.m. meds, no c/o CP/pressure, no noted edema. L/S cta to mid and upper lobes w/fine bibasilar crackles, denies dyspnea, O2 sat upper 90's on 2L NC. Abd SNT, BT+, voiding w/o difficulty per pt. PIV x1, s/l. Pt denies any current needs/questions regarding plan of care. Anticipating discharge home today, awaiting rounding from PMD. Discussed importance of deep breathing exercises, pt verbalized and demonstrated understanding. Currently sitting up in bed having breakfast, call light in reach, cont to monitor for any changes.
[2023-11-12] MEDS ORDERED: ONDA4ODT MM (11:14)
[2023-11-12] MEDS ORDERED: MUPIROCIN1 G1 TOP (11:14)
[2023-11-12] MEDS ORDERED: SULTRIDS PO (11:15)
--- NOTE | 2023-11-12 12:37 | NUR ---
NURSING PCU DISCHARGE SUMMARY: No significant changes noted t/o the shift. Seen by PMD, discharge home d/o received. Pt verbalized understanding of all written and verbal discharge instructions. Family will arrive this afternoon for transport. Pt denies any current needs, currently sitting up in bed eating lunch, call light in reach, monitor until discharge completed.
== END 2023-11-12 16:20 | disposition home or self-care (01) ==
LOC: ER 06:16 → PCU 06:17
PROVIDERS: Emergency Medicine; ADMIT Internal Medicine
DX: G70.00 Myasthenia gravis without (acute) exacerbation (principal); E86.0 Dehydration; L73.9 Follicular disorder, unspecified; E03.9 Hypothyroidism, unspecified; G89.29 Other chronic pain; K21.9 Gastro-esophageal reflux disease without esophagitis; G43.909 Migraine, unspecified, not intractable, without status migrainosus; L02.421 Furuncle of right axilla; B95.62 Methicillin resistant Staphylococcus aureus infection as the cause of diseases classified elsewhere; E87.6 Hypokalemia; Z79.899 Other long term (current) drug therapy
CPT/HCPCS: 0241U; 10061; 36415; 74177; 80048; 80053; 81001; 83605; 83690; 85025; 87040; 87070; 87075; 87077; 87147; 87186; 87205; 94760; 94762; 96365-59; 96366; 96366-59; 96372; 96375; 96375-59; 96376; 96376-59; 99285-25; A9270; C9113; G0378; J0690; J0780; J1170; J1650; J2405; J3010; J7030; Q9967

== ENCOUNTER → 2023-12-04 | Outpatient (CLI) | payer MEDICARE, BC ==
[~2023-12-04] MED LIST changes: +BUTALB-ACETAMI1 EAC5 PO; +MUPIROCIN1 G1 TOP; +ONDA4ODT MM; +SULTRIDS PO
[2023-12-04 12:02] LABS: BASOPHILS ABSOLUTE AUTO 0.02 K/mm3 (0.00-0.23); BASOPHILS PERCENT AUTO 1 % (0-2); EOSINOPHILS ABSOLUTE AUTO 0.09 K/mm3 (0.00-0.68); EOSINOPHILS PERCENT AUTO 2 % (0-6); Hematocrit 35.3 % (33.0-51.0); Hemoglobin 11.2 g/dL (11.5-16.0); IMMATURE GRAN ABSOLUTE AUTO 0.01 K/mm3 (0.00-0.10); IMMATURE GRAN PERCENT AUTO 0 % (0-1); LYMPHOCYTES ABSOLUTE AUTO 1.14 K/mm3 (0.84-5.20); LYMPHOCYTES PERCENT AUTO 29 % (21-46); MONOCYTES ABSOLUTE AUTO 0.44 K/mm3 (0.16-1.47); MONOCYTES PERCENT AUTO 11 % (4-13); Mean Corpuscular HGB Conc 31.7 g/dL (31.5-36.5); Mean Corpuscular Volume 95 fL (80-100); Mean Platelet Volume 11.4 fL (9.1-12.4); NEUTROPHILS ABSOLUTE AUTO 2.25 K/mm3 (1.96-9.15); NEUTROPHILS PERCENT AUTO 57 % (41-73); Platelet Count 189 K/mm3 (150-400); RDW Coefficient Variation 13.6 % (11.7-14.2); RDW Standard Deviation 47.4 fL (35.1-46.3); Red Blood Cell Count 3.73 M/mm3 (3.80-5.20); White Blood Cell Count 3.95 K/mm3 (4.00-11.30)
[2023-12-04 12:40] LABS: Alanine Aminotransfer (ALT/SGP 27 U/L (12-78); Albumin, Blood 3.5 g/dL (3.4-5.0); Albumin/Globulin Ratio 0.7 (0.8-1.8); Alk Phos 105 U/L (50-136); Anion Gap Unable to Calculate mmol/L (6-16); Aspartate Aminotrans (AST/SGOT 23 U/L (12-37); Bilirubin, Total 0.3 mg/dL (0.1-1.0); Blood Urea Nitrogen 9 mg/dL (8-24); Bun/Creatinine Ratio 18.6 (12.0-20.0); CO2, Blood 36 mmol/L (21-32); Calcium, Blood 9.1 mg/dL (8.5-10.1); Chloride, Blood 105 mmol/L (98-108); Creatinine, Blood 0.48 mg/dL (0.40-1.00); Globulin, Blood 4.9 g/dL (2.2-4.0); Glomerular Filtration Rate 106 (60-); Glucose, Blood 106 mg/dL (70-99); Potassium, Blood 3.9 mmol/L (3.5-5.5); Sodium, Blood 139 mmol/L (136-145); Total Protein, Blood 8.4 g/dL (6.4-8.2)
== END ==
LOC: LAB SHORT 11:05
PROVIDERS: Nurse Practitioner
DX: G70.00 Myasthenia gravis without (acute) exacerbation (principal)
CPT/HCPCS: 80053; 85025

== ENCOUNTER → 2024-09-02 | Outpatient (CLI) | payer MEDICARE, BC | LOC: LAB SHORT 16:03 → LAB 16:03 | DX: L08.0 Pyoderma (principal) | CPT/HCPCS: 87070; 87077; 87147; 87186; 87205 ==

== ENCOUNTER 2025-02-06 23:29 | Inpatient (IN) | payer MEDICARE, BC ==
[~2025-02-06] VITALS: Ht 154.9 cm; Wt 100.1 kg
[~2025-02-06 23:29] MED LIST changes: +MORPHINE SULFAT60 M2 PO
[2025-02-07 01:11] LABS: BASOPHILS ABSOLUTE AUTO 0.01 K/mm3 (0.00-0.23); BASOPHILS PERCENT AUTO 0 % (0-2); EOSINOPHILS ABSOLUTE AUTO 0.01 K/mm3 (0.00-0.68); EOSINOPHILS PERCENT AUTO 0 % (0-6); Hematocrit 34.5 % (33.0-51.0); Hemoglobin 11.1 g/dL (11.5-16.0); IMMATURE GRAN ABSOLUTE AUTO 0.05 K/mm3 (0.00-0.10); IMMATURE GRAN PERCENT AUTO 1 % (0-1); LYMPHOCYTES ABSOLUTE AUTO 0.75 K/mm3 (0.84-5.20); LYMPHOCYTES PERCENT AUTO 13 % (21-46); MONOCYTES ABSOLUTE AUTO 0.37 K/mm3 (0.16-1.47); MONOCYTES PERCENT AUTO 6 % (4-13); Mean Corpuscular HGB 29.4 pg (26.0-34.0); Mean Corpuscular HGB Conc 32.2 g/dL (31.5-36.5); Mean Corpuscular Volume 91 fL (80-100); Mean Platelet Volume 10.9 fL (9.1-12.4); NEUTROPHILS ABSOLUTE AUTO 4.61 K/mm3 (1.96-9.15); NEUTROPHILS PERCENT AUTO 79 % (41-73); Platelet Count 198 K/mm3 (150-400); RDW Coefficient Variation 13.2 % (11.7-14.2); RDW Standard Deviation 43.8 fL (35.1-46.3); Red Blood Cell Count 3.78 M/mm3 (3.80-5.20)
[2025-02-07 01:30] LABS: Albumin, Blood 3.4 g/dL (3.4-5.0); Albumin/Globulin Ratio 0.8 (0.8-1.8); Bilirubin, Total 0.3 mg/dL (0.1-1.0); Bun/Creatinine Ratio 11.9 (12.0-20.0); Calcium, Blood 8.3 mg/dL (8.5-10.1); Creatinine, Blood 0.42 mg/dL (0.40-1.00); Magnesium, Blood 2.4 mg/dL (1.6-2.4); Potassium, Blood 3.1 mmol/L (3.5-5.5); Total Protein, Blood 7.4 g/dL (6.4-8.2)
[2025-02-07 01:45] LABS: Source, Urine Clean Catch
[2025-02-07 01:47] LABS: Bilirubin, Urine Neg (Neg); Blood, Urine 1+ (Neg); Glucose Qualitative, Urine Neg (Neg); Ketones, Urine 3+ (Neg); Leukocyte Esterase, Urine Neg (Neg); Nitrite, Urine Neg (Neg); Protein, Urine 1+ (Neg); Urobilinogen, Urine NORM (Normal)
[2025-02-07 01:48] LABS: Influenza A, PCR NEGATIVE (NEGATIVE); Influenza B, PCR NEGATIVE (NEGATIVE); Resp Syncytial Virus, PCR NEGATIVE (NEGATIVE); SARS-Cov-2 (COVID-19) PCR, MMC NEGATIVE (NEGATIVE)
[2025-02-07] MEDS ORDERED: Potassium Chloride 20 MEQ TabCR PO ONE ×2 (01:50→07:50)
[2025-02-07 01:52] LABS: Appearance, Urine Clear (Clear); Color, Urine Pale Yellow (P-Yellow)
[2025-02-07 02:07] LABS: Bacteria Not Seen /hpf; Red Blood Cells, Urine 0-2 /hpf (0-2); Squamous Epithelial Cells Not Seen /hpf (Few); Transitional Epithelial Cells Rare /hpf (0-Rare); White Blood Cells, Urine Not Seen /hpf (0-5)
[2025-02-07 04:20] VITALS: BP 129/72
[2025-02-07 06:17] LABS: BASOPHILS ABSOLUTE AUTO 0.01 K/mm3 (0.00-0.23); BASOPHILS PERCENT AUTO 0 % (0-2); EOSINOPHILS ABSOLUTE AUTO 0.04 K/mm3 (0.00-0.68); EOSINOPHILS PERCENT AUTO 1 % (0-6); Hematocrit 34.7 % (33.0-51.0); Hemoglobin 11.1 g/dL (11.5-16.0); IMMATURE GRAN ABSOLUTE AUTO 0.02 K/mm3 (0.00-0.10); IMMATURE GRAN PERCENT AUTO 0 % (0-1); LYMPHOCYTES ABSOLUTE AUTO 1.57 K/mm3 (0.84-5.20); LYMPHOCYTES PERCENT AUTO 28 % (21-46); MONOCYTES ABSOLUTE AUTO 0.54 K/mm3 (0.16-1.47); MONOCYTES PERCENT AUTO 10 % (4-13); Mean Corpuscular HGB 29.7 pg (26.0-34.0); Mean Corpuscular Volume 93 fL (80-100); Mean Platelet Volume 10.7 fL (9.1-12.4); NEUTROPHILS ABSOLUTE AUTO 3.35 K/mm3 (1.96-9.15); NEUTROPHILS PERCENT AUTO 61 % (41-73); Platelet Count 187 K/mm3 (150-400); RDW Coefficient Variation 13.5 % (11.7-14.2); RDW Standard Deviation 45.9 fL (35.1-46.3); Red Blood Cell Count 3.74 M/mm3 (3.80-5.20); White Blood Cell Count 5.53 K/mm3 (4.00-11.30)
[2025-02-07 06:34] LABS: Albumin, Blood 3.3 g/dL (3.4-5.0); Albumin/Globulin Ratio 0.8 (0.8-1.8); Bilirubin, Total 0.3 mg/dL (0.1-1.0); Bun/Creatinine Ratio 11.7 (12.0-20.0); Calcium, Blood 8.2 mg/dL (8.5-10.1); Creatinine, Blood 0.43 mg/dL (0.40-1.00); Globulin, Blood 3.9 g/dL (2.2-4.0); Magnesium, Blood 2.5 mg/dL (1.6-2.4); Potassium, Blood 3.4 mmol/L (3.5-5.5); Total Protein, Blood 7.2 g/dL (6.4-8.2)
[2025-02-07 07:46] VITALS: BP 142/67
[2025-02-07] MEDS ORDERED: Ondansetron HCl 2 MG / ML 2ML Vial IV PRN (08:25)
[2025-02-07] MEDS ORDERED: Levothyroxine Sodium 0.1 MG Tab PO SCH (08:30)
[2025-02-07] MEDS ORDERED: Omeprazole 20 MG CapCR PO SCH (08:45)
[2025-02-07] MEDS ORDERED: Rizatriptan Benzoate 10 MG / TAB SoluTab PO PRN (08:55)
[2025-02-07] MEDS ORDERED: Enoxaparin 40 MG/0.4 ML SYR SC SCH (09:00)
[2025-02-07] MEDS ORDERED: Venlafaxine HCl 75 MG CapCR PO SCH (09:00)
[2025-02-07] MEDS ORDERED: Pyridostigmine Bromide 60 MG Tab PO SCH (09:00)
[2025-02-07] MEDS ORDERED: Docusate Sodium 100 MG Cap PO SCH ×2 (09:00)
[2025-02-07 09:01] LABS: Free Thyroxine 1.19 ng/dL (0.70-1.60); Thyroid Stimulating Hormone 0.505 uIU/mL (0.360-4.800); Triiodothyronine, Free 1.55 pg/mL (2.18-3.98)
[2025-02-07] MEDS ORDERED: TiZANidine HCl 4 MG Tab PO PRN (13:05)
[2025-02-07 13:34] LABS: Base Excess Venous 8.2 mmol/L; Bicarbonate Venous 30.8 mmol/L (24.0-30.0); PCO2 Venous 49.5 mmHg (38-42); pH Blood Venous 7.43 (7.34-7.37)
[2025-02-07] MEDS ORDERED: Morphine Sulfate IR 15 MG Tab PO PRN (13:55)
[2025-02-07] MEDS ORDERED: Morphine Sulfate 30 MG TabCR PO SCH ×2 (14:00→22:00)
[2025-02-07 16:14] VITALS: BP 104/63
--- NOTE | 2025-02-07 17:07 | NUR ---
PT HAS HAD C/O PAIN DURING THE DAY. HOME MEDS SCHEDULED AND GIVEN WITH RESULTS.
[2025-02-07 20:36] VITALS: BP 126/61
[2025-02-07] MEDS ORDERED: Latanoprost 0.005% Opth Soln 2.5 ML BOTHEYES SCH (21:00)
[2025-02-07] MEDS ORDERED: TraZODone HCl 100 MG Tab PO SCH (21:00)
[2025-02-07] MEDS ORDERED: Timolol 0.5% Opth Soln 5 ML BOTHEYES SCH (21:00)
[2025-02-08 03:15] VITALS: BP 111/77
[2025-02-08 05:28] LABS: BASOPHILS ABSOLUTE AUTO 0.01 K/mm3 (0.00-0.23); BASOPHILS PERCENT AUTO 0 % (0-2); EOSINOPHILS ABSOLUTE AUTO 0.25 K/mm3 (0.00-0.68); EOSINOPHILS PERCENT AUTO 5 % (0-6); Hematocrit 35.5 % (33.0-51.0); Hemoglobin 11.2 g/dL (11.5-16.0); IMMATURE GRAN ABSOLUTE AUTO 0.02 K/mm3 (0.00-0.10); IMMATURE GRAN PERCENT AUTO 0 % (0-1); LYMPHOCYTES PERCENT AUTO 31 % (21-46); MONOCYTES ABSOLUTE AUTO 0.46 K/mm3 (0.16-1.47); MONOCYTES PERCENT AUTO 9 % (4-13); Mean Corpuscular HGB 29.8 pg (26.0-34.0); Mean Corpuscular HGB Conc 31.5 g/dL (31.5-36.5); Mean Corpuscular Volume 94 fL (80-100); Mean Platelet Volume 10.6 fL (9.1-12.4); NEUTROPHILS ABSOLUTE AUTO 2.87 K/mm3 (1.96-9.15); NEUTROPHILS PERCENT AUTO 55 % (41-73); Platelet Count 198 K/mm3 (150-400); RDW Coefficient Variation 13.8 % (11.7-14.2); RDW Standard Deviation 47.4 fL (35.1-46.3); Red Blood Cell Count 3.76 M/mm3 (3.80-5.20); White Blood Cell Count 5.21 K/mm3 (4.00-11.30)
[2025-02-08 05:46] LABS: Albumin, Blood 3.1 g/dL (3.4-5.0); Albumin/Globulin Ratio 0.9 (0.8-1.8); Bilirubin, Total 0.3 mg/dL (0.1-1.0); Bun/Creatinine Ratio 12.7 (12.0-20.0); Calcium, Blood 7.9 mg/dL (8.5-10.1); Creatinine, Blood 0.47 mg/dL (0.40-1.00); Globulin, Blood 3.5 g/dL (2.2-4.0); Potassium, Blood 3.5 mmol/L (3.5-5.5); Total Protein, Blood 6.6 g/dL (6.4-8.2)
[2025-02-08 07:22] VITALS: BP 102/65
--- NOTE | 2025-02-08 07:51 | NUR ---
SHIFT SUMMARY AT START OF SHIFT, PT LYING IN BED RESTING. PT STATED SHE WAS IN PAIN. MEDICATED PER EMAR. PT COMFORT LEVEL MAINTAINED PER PT STATEMENTS. PT SLEPT COMFORTABLY THROUGH SHIFT, WAKING ONCE FOR PAIN MEDICATION. WITH MORNING MED PASS, PT STATES 4/10 PAIN . CONTINUING TO MONITOR. WILL PASS ON TO DAY SHIFT.
[2025-02-08] MEDS ORDERED: Morphine Sulfate IR 15 MG Tab PO PRN (09:09)
[2025-02-08] MEDS ORDERED: Docusate Sodium 100 MG Cap PO PRN (09:09)
[2025-02-08] MEDS ORDERED: Venlafaxine HCl 37.5 MG CapCR PO ONE (09:10)
[2025-02-08] MEDS ORDERED: Rizatriptan Benzoate 10 MG / TAB SoluTab SL PRN (09:40)
[2025-02-08] MEDS ORDERED: Aspirin/Caffeine/Butalbital 1 CAP PO PRN (09:40)
[2025-02-08] MEDS ORDERED: IVIG (Pharmacy Consult) IV SCH (09:45)
[2025-02-08] MEDS ORDERED: IMMUN GLOB G(IGG)/PRO/IGA 0-50 100 ML IV SCH (09:50)
[2025-02-08] MEDS ORDERED: Potassium Chloride 10 Meq Tablet SA PO SCH (13:00)
[2025-02-08 13:45] LABS: Base Excess Venous 10.2 mmol/L; Bicarbonate Venous 32.2 mmol/L (24.0-30.0)
[2025-02-08 16:09] VITALS: BP 97/65
--- NOTE | 2025-02-08 18:04 | NUR ---
SHIFT SUMMARY AO X 4, PLEASANT, ONE PERSON ASSIST. PAIN MANAGEMENT PER EMAR. IVIG STARTED TODAY. SELF POSITIONINING, CALL LIGHT WITHIN REACH AND BED IN LOWEST POSITION.
[2025-02-08 19:25] VITALS: BP 121/70
[2025-02-08] MEDS ORDERED: Venlafaxine HCl 37.5 MG CapCR PO SCH (21:00)
[2025-02-08] MEDS ORDERED: Venlafaxine HCl 75 MG CapCR PO SCH (21:00)
[2025-02-09 04:28] VITALS: BP 116/62
--- NOTE | 2025-02-09 05:31 | NUR ---
HUMAN SERVICES MANAGER SUMMARY NO ACUTE CHANGES. PT GIVEN MEDS PER DEC. IVIG COMPLETED. PT ONLY TOLERATGING 40MG P/HOUR INSTEAD OF 100MG/HR ORDERED. PT ABLE TO MAKE NEEDS KNOWN AND CALLING APPROPRIATELY. CARE WILL CONTINUE UNTIL REPORT GIVEN TO ONCOMING NURSE.
[2025-02-09 05:42] LABS: BASOPHILS ABSOLUTE AUTO 0.02 K/mm3 (0.00-0.23); BASOPHILS PERCENT AUTO 0 % (0-2); EOSINOPHILS ABSOLUTE AUTO 0.17 K/mm3 (0.00-0.68); EOSINOPHILS PERCENT AUTO 4 % (0-6); Hematocrit 36.3 % (33.0-51.0); Hemoglobin 11.5 g/dL (11.5-16.0); IMMATURE GRAN ABSOLUTE AUTO 0.01 K/mm3 (0.00-0.10); IMMATURE GRAN PERCENT AUTO 0 % (0-1); LYMPHOCYTES ABSOLUTE AUTO 1.12 K/mm3 (0.84-5.20); LYMPHOCYTES PERCENT AUTO 23 % (21-46); MONOCYTES ABSOLUTE AUTO 0.36 K/mm3 (0.16-1.47); MONOCYTES PERCENT AUTO 8 % (4-13); Mean Corpuscular HGB 29.9 pg (26.0-34.0); Mean Corpuscular HGB Conc 31.7 g/dL (31.5-36.5); Mean Corpuscular Volume 94 fL (80-100); Mean Platelet Volume 10.9 fL (9.1-12.4); NEUTROPHILS ABSOLUTE AUTO 3.15 K/mm3 (1.96-9.15); NEUTROPHILS PERCENT AUTO 65 % (41-73); Platelet Count 192 K/mm3 (150-400); RDW Coefficient Variation 13.6 % (11.7-14.2); RDW Standard Deviation 46.4 fL (35.1-46.3); Red Blood Cell Count 3.85 M/mm3 (3.80-5.20); White Blood Cell Count 4.83 K/mm3 (4.00-11.30)
[2025-02-09 06:05] LABS: Albumin, Blood 3.1 g/dL (3.4-5.0); Albumin/Globulin Ratio 0.6 (0.8-1.8); Bilirubin, Total 0.2 mg/dL (0.1-1.0); Bun/Creatinine Ratio 20.9 (12.0-20.0); Calcium, Blood 8.8 mg/dL (8.5-10.1); Creatinine, Blood 0.53 mg/dL (0.40-1.00); Globulin, Blood 4.8 g/dL (2.2-4.0); Potassium, Blood 3.8 mmol/L (3.5-5.5); Total Protein, Blood 7.9 g/dL (6.4-8.2)
[2025-02-09 07:03] VITALS: BP 115/75
[2025-02-09] MEDS ORDERED: IMMUN GLOB G(IGG)/PRO/IGA 0-50 100 ML IV SCH (10:00)
[2025-02-09 10:29] LABS: Bun/Creatinine Ratio 16.5 (12.0-20.0); Calcium, Blood 8.8 mg/dL (8.5-10.1); Creatinine, Blood 0.61 mg/dL (0.40-1.00)
[2025-02-09 14:01] LABS: Base Excess Venous 8.4 mmol/L; Bicarbonate Venous 30.3 mmol/L (24.0-30.0); PCO2 Venous 62 mmHg (38-42); pH Blood Venous 7.35 (7.34-7.37)
[2025-02-09 15:36] VITALS: BP 111/61
--- NOTE | 2025-02-09 17:20 | NUR ---
SHIFT SUMMARY ALERT AND ORIENTED X 4, NO ACUTE CHANGES, MEDICATED PER EMAR. PATIENT WAS ABLE TO TRANSFER FROM CHAIR TO BED BY HERSELF WITH STAND BY ASSIST. SELF REPOSITION IN BED. CALL LIGHT WITHIN REACH AND BED IN LOWEST POSITION.
[2025-02-09 19:31] VITALS: BP 117/77
[2025-02-09] MEDS ORDERED: Enoxaparin 40 MG/0.4 ML SYR SC SCH (21:00)
--- NOTE | 2025-02-10 04:48 | NUR ---
SHIFT SUMMARY PT ALERT ORIENTED X 4 ABLE TO VERBALIZE NEEDS GETS UP TO BEDSIDE COMMODE AD MICAELA. SHE WAS GIVEN THE LAST DOSE OF THE IVIG LAST NIGHT. REMAINS ON 2L VIA NC SATTING AT 98%. C/O BODY PAIN MEDICATED WITH MORPHINE ROUTINE AND PRN DOSES WITH GOOD RELIEF. SHE WAS DUE TO USE THE BIPAP LAST NIGHT BUT SHE REFUSED TO USE IT. REMAINS ON A CONTINUOUS PULSE OX. NO C/O SOB THIS SHIFT. VSS. RESTING IN BED AT THIS TIME WITH CALL LIGHT IN REACH
[2025-02-10 04:56] VITALS: BP 110/59
[2025-02-10 04:56] LABS: Base Excess Venous 11.2 mmol/L; Bicarbonate Venous 32.6 mmol/L (24.0-30.0); PCO2 Venous 62.9 mmHg (38-42); pH Blood Venous 7.37 (7.34-7.37)
[2025-02-10 05:02] LABS: BASOPHILS ABSOLUTE AUTO 0.01 K/mm3 (0.00-0.23); BASOPHILS PERCENT AUTO 0 % (0-2); EOSINOPHILS ABSOLUTE AUTO 0.15 K/mm3 (0.00-0.68); EOSINOPHILS PERCENT AUTO 4 % (0-6); Hematocrit 36.8 % (33.0-51.0); Hemoglobin 11.7 g/dL (11.5-16.0); IMMATURE GRAN ABSOLUTE AUTO 0.01 K/mm3 (0.00-0.10); IMMATURE GRAN PERCENT AUTO 0 % (0-1); LYMPHOCYTES ABSOLUTE AUTO 1.16 K/mm3 (0.84-5.20); LYMPHOCYTES PERCENT AUTO 30 % (21-46); MONOCYTES ABSOLUTE AUTO 0.42 K/mm3 (0.16-1.47); MONOCYTES PERCENT AUTO 11 % (4-13); Mean Corpuscular HGB Conc 31.8 g/dL (31.5-36.5); Mean Corpuscular Volume 94 fL (80-100); Mean Platelet Volume 10.6 fL (9.1-12.4); NEUTROPHILS ABSOLUTE AUTO 2.11 K/mm3 (1.96-9.15); NEUTROPHILS PERCENT AUTO 55 % (41-73); Platelet Count 177 K/mm3 (150-400); RDW Coefficient Variation 13.8 % (11.7-14.2); RDW Standard Deviation 47.1 fL (35.1-46.3); White Blood Cell Count 3.86 K/mm3 (4.00-11.30)
[2025-02-10 05:38] LABS: Bun/Creatinine Ratio 24.6 (12.0-20.0); Calcium, Blood 9.2 mg/dL (8.5-10.1); Creatinine, Blood 0.53 mg/dL (0.40-1.00); Potassium, Blood 3.9 mmol/L (3.5-5.5)
[2025-02-10 07:36] VITALS: BP 117/66
[2025-02-10] MEDS ORDERED: Mycophenolate Mofetil 250 MG Cap PO SCH ×2 (09:00)
[2025-02-10] MEDS ORDERED: Naloxone HCL 4 MG SPRAY (1 UNIT) PRN (12:15)
[2025-02-10] MEDS ORDERED: IMMUN GLOB G(IGG)/PRO/IGA 0-50 100 ML IV SCH (13:00)
[2025-02-10 13:54] LABS: Base Excess Venous 10.3 mmol/L; Bicarbonate Venous 32.2 mmol/L (24.0-30.0); PCO2 Venous 60.8 mmHg (38-42); pH Blood Venous 7.38 (7.34-7.37)
[2025-02-10] MEDS ORDERED: Diclofenac Sodium 100 GM TUBE TOP PRN (13:55)
[2025-02-10 14:20] LABS: BASOPHILS ABSOLUTE AUTO 0.02 K/mm3 (0.00-0.23); BASOPHILS PERCENT AUTO 1 % (0-2); EOSINOPHILS ABSOLUTE AUTO 0.15 K/mm3 (0.00-0.68); EOSINOPHILS PERCENT AUTO 4 % (0-6); Hematocrit 35.3 % (33.0-51.0); Hemoglobin 11.1 g/dL (11.5-16.0); IMMATURE GRAN ABSOLUTE AUTO 0.01 K/mm3 (0.00-0.10); IMMATURE GRAN PERCENT AUTO 0 % (0-1); LYMPHOCYTES ABSOLUTE AUTO 1.22 K/mm3 (0.84-5.20); LYMPHOCYTES PERCENT AUTO 30 % (21-46); MONOCYTES PERCENT AUTO 10 % (4-13); Mean Corpuscular HGB 29.9 pg (26.0-34.0); Mean Corpuscular HGB Conc 31.4 g/dL (31.5-36.5); Mean Corpuscular Volume 95 fL (80-100); Mean Platelet Volume 10.9 fL (9.1-12.4); NEUTROPHILS ABSOLUTE AUTO 2.26 K/mm3 (1.96-9.15); NEUTROPHILS PERCENT AUTO 56 % (41-73); Platelet Count 189 K/mm3 (150-400); RDW Coefficient Variation 13.8 % (11.7-14.2); RDW Standard Deviation 47.8 fL (35.1-46.3); Red Blood Cell Count 3.71 M/mm3 (3.80-5.20); White Blood Cell Count 4.06 K/mm3 (4.00-11.30)
[2025-02-10 14:40] LABS: Bun/Creatinine Ratio 22.9 (12.0-20.0); Calcium, Blood 9.1 mg/dL (8.5-10.1); Creatinine, Blood 0.53 mg/dL (0.40-1.00); Potassium, Blood 4.1 mmol/L (3.5-5.5)
[2025-02-10 17:34] VITALS: BP 128/79
--- NOTE | 2025-02-10 18:20 | NUR ---
SHIFT SUMMARY: PT A&O X4. PLEASANT AND COOPERATIVE WITH CARE. STANDBY ASSIST IN ROOM. PT CURRENTLY ON 2L WHICH PT STATES IS HER BASELINE. PT RECEIVED ONE MORE ROUND OF IVIG TODAY AND CURRENTLY ON 3/5 BOTTLE INFUSING @ 40/HR. PT RECEIVED PRN AND SCHEDULED PAIN MEDICATION. PT C/O L. SHOULDER PAIN AND REQUESTED VOLTAREN GEL. ARTHRITIC GEL ORDERED AND PROVIDED TO PATIENT. PT ATTEMPTED BIPAP THIS SHIFT BUT UNABLE TO TOLERATE. CALL LIGHT IN REACH. BED IN LOWEST POSITION.
[2025-02-10 19:47] VITALS: BP 142/72
[2025-02-11 02:02] VITALS: BP 134/77
--- NOTE | 2025-02-11 05:49 | NUR ---
SHIFT SUMMARY: Pt is admitted for general weakness and is a full code. Is alert and able to make needs known. ADLs have been SBA. pain has been managed with PRN medication. Iv to left hand has been running IV IGG at 40ml/h through most of the night. This is the rate PT has been able to tolerate. 2LPM O2 via NC.
[2025-02-11 07:48] VITALS: BP 116/63
[2025-02-11] MEDS ORDERED: Potassium Chloride 10 Meq Tablet SA PO SCH (09:00)
[2025-02-11 16:23] VITALS: BP 150/77
--- NOTE | 2025-02-11 17:56 | NUR ---
NO ACUTE CHNAGES, POSSIBLE DSICHARGE TOMORROW, PATIENT CONTINENT OF BOWEL AND BLADDER, MAKES NEEDS KNOWN, GOOD HISTORIAN OF SELF HEALTH HISTORY, IVF SL, CALL LIGHT WITH IN REACH, WILL RELAY TO PM RN
[2025-02-11 20:30] VITALS: BP 112/87
[2025-02-12 03:21] VITALS: BP 124/67
[2025-02-12 06:12] LABS: Base Excess Venous 10.2 mmol/L; Bicarbonate Venous 32.8 mmol/L (24.0-30.0); PCO2 Venous 44.9 mmHg (38-42); pH Blood Venous 7.48 (7.34-7.37)
--- NOTE | 2025-02-12 06:40 | NUR ---
SHIFT SUMMARY: Pt is admitted for general weakness and is a full code. Is alert and able to make needs known. ADLs have been SBA. pain has been managed with PRN medication. Iv to left hand is patent.. 2LPM O2 via NC.
[2025-02-12 06:45] LABS: BASOPHILS ABSOLUTE AUTO 0.03 K/mm3 (0.00-0.23); BASOPHILS PERCENT AUTO 1 % (0-2); EOSINOPHILS ABSOLUTE AUTO 0.15 K/mm3 (0.00-0.68); EOSINOPHILS PERCENT AUTO 4 % (0-6); Hematocrit 36.2 % (33.0-51.0); Hemoglobin 11.6 g/dL (11.5-16.0); IMMATURE GRAN ABSOLUTE AUTO 0.01 K/mm3 (0.00-0.10); IMMATURE GRAN PERCENT AUTO 0 % (0-1); LYMPHOCYTES ABSOLUTE AUTO 1.45 K/mm3 (0.84-5.20); LYMPHOCYTES PERCENT AUTO 42 % (21-46); MONOCYTES ABSOLUTE AUTO 0.39 K/mm3 (0.16-1.47); MONOCYTES PERCENT AUTO 11 % (4-13); Mean Corpuscular HGB 29.5 pg (26.0-34.0); Mean Corpuscular Volume 92 fL (80-100); NEUTROPHILS PERCENT AUTO 41 % (41-73); Platelet Count 172 K/mm3 (150-400); RDW Coefficient Variation 13.6 % (11.7-14.2); RDW Standard Deviation 46.5 fL (35.1-46.3); Red Blood Cell Count 3.93 M/mm3 (3.80-5.20); White Blood Cell Count 3.43 K/mm3 (4.00-11.30)
[2025-02-12 07:09] LABS: Albumin, Blood 3.1 g/dL (3.4-5.0); Albumin/Globulin Ratio 0.5 (0.8-1.8); Bilirubin, Total 0.2 mg/dL (0.1-1.0); Bun/Creatinine Ratio 23.1 (12.0-20.0); Calcium, Blood 8.7 mg/dL (8.5-10.1); Creatinine, Blood 0.52 mg/dL (0.40-1.00); Globulin, Blood 6.3 g/dL (2.2-4.0); Potassium, Blood 3.9 mmol/L (3.5-5.5); Total Protein, Blood 9.4 g/dL (6.4-8.2)
[2025-02-12 07:18] VITALS: BP 117/72
[2025-02-12] MEDS ORDERED: MYCO250 PO (12:41)
[2025-02-12] MEDS ORDERED: NARCAN4 M1 (12:42)
--- NOTE | 2025-02-12 17:38 | NUR ---
SHIFT SUMMARY/DISCHARGE PT AOX4, COOPERATIVE, ABLE TO MAKE NEEDS KNOWN. PT HAS BEEN TRANFERRING TO COMMODE FOR VOIDING. 9ON 2L O2 FOR THE SHIFT. PT IS DC ON HOMEHEALTH. WENT OVER DC PAPERWORK WITH PT. IV DC'D BY CHILD CARE ASSOCIATE TEACHER. PT TRANSPORTED DOWN TO PT ENTRANCE BY FAMILY MEMBER.
== END 2025-02-12 17:26 | disposition home or self-care (01) | DRG 189 ==
LOC: ER 23:29 → ERHOLD 23:30 → MEDS 23:30 → ER 23:30 → MEDS 23:30 → ERHOLD 02-07 03:50 → MEDS 02-08 12:08 → ENPENDDIS 02-12 11:16 → MEDS 02-12 17:26
PROVIDERS: Family Medicine; Student in an Organized Health Care Education/Training Program; ADMIT Student in an Organized Health Care Education/Training Program
PROC: 30233S1 Transfusion of Nonautologous Globulin into Peripheral Vein, Percutaneous Approach (ICD-10-PCS; principal; 2025-02-08)
DX: J96.21 Acute and chronic respiratory failure with hypoxia (principal); G70.01 Myasthenia gravis with (acute) exacerbation; J96.22 Acute and chronic respiratory failure with hypercapnia; M79.7 Fibromyalgia; M81.0 Age-related osteoporosis without current pathological fracture; E87.6 Hypokalemia; R19.7 Diarrhea, unspecified; K21.9 Gastro-esophageal reflux disease without esophagitis; E03.9 Hypothyroidism, unspecified; K59.00 Constipation, unspecified; H40.053 Ocular hypertension, bilateral; G43.909 Migraine, unspecified, not intractable, without status migrainosus; E78.5 Hyperlipidemia, unspecified; D64.9 Anemia, unspecified; Z96.659 Presence of unspecified artificial knee joint; Z88.8 Allergy status to other drugs, medicaments and biological substances; Z88.5 Allergy status to narcotic agent; Z88.0 Allergy status to penicillin; Z90.710 Acquired absence of both cervix and uterus; Z98.890 Other specified postprocedural states; Z87.891 Personal history of nicotine dependence; Z79.51 Long term (current) use of inhaled steroids; Z79.899 Other long term (current) drug therapy; Z79.890 Hormone replacement therapy
CPT/HCPCS: 0241U; 36415; 51701; 71045; 80048; 80053; 81001; 82803; 83735; 84439; 84443; 84481; 85025; 93005; 93010; 93306; 94660; 94760; 94762; 96372; 97110; 97162; 97165; 97530; 97535; 99285-25; A9270; G0378; J1459; J1650; J2405; J7517

== ENCOUNTER 2025-07-09 09:59 | Emergency (ER) | payer MEDICARE, BC ==
[~2025-07-09] VITALS: Ht 160 cm; Wt 95.2 kg
[~2025-07-09 09:59] MED LIST changes: +MYCO250 PO; +NARCAN4 M1; +Nitrofurantoin100 M1 PO
[2025-07-09] MEDS ORDERED: Morphine Sulfate 4 MG/1 ML Injection IV ONE ×2 (10:40→13:05)
[2025-07-09 10:53] LABS: BASOPHILS ABSOLUTE AUTO 0.02 K/mm3 (0.00-0.23); BASOPHILS PERCENT AUTO 0 % (0-2); EOSINOPHILS ABSOLUTE AUTO 0.07 K/mm3 (0.00-0.68); EOSINOPHILS PERCENT AUTO 1 % (0-6); Hematocrit 36.7 % (33.0-51.0); Hemoglobin 11.9 g/dL (11.5-16.0); IMMATURE GRAN ABSOLUTE AUTO 0.01 K/mm3 (0.00-0.10); IMMATURE GRAN PERCENT AUTO 0 % (0-1); LYMPHOCYTES ABSOLUTE AUTO 1.15 K/mm3 (0.84-5.20); LYMPHOCYTES PERCENT AUTO 22 % (21-46); MONOCYTES ABSOLUTE AUTO 0.39 K/mm3 (0.16-1.47); MONOCYTES PERCENT AUTO 8 % (4-13); Mean Corpuscular HGB Conc 32.4 g/dL (31.5-36.5); Mean Corpuscular Volume 91 fL (80-100); NEUTROPHILS ABSOLUTE AUTO 3.57 K/mm3 (1.96-9.15); NEUTROPHILS PERCENT AUTO 69 % (41-73); NRBC ABSOLUTE 0.00 K/mm3 (0.00-0.02); NRBC Auto 0.0 /100 WBC (0.0-0.2); Platelet Count 224 K/mm3 (150-400); RDW Coefficient Variation 13.7 % (11.7-14.2); RDW Standard Deviation 45.4 fL (35.1-46.3)
[2025-07-09 11:22] LABS: Alanine Aminotransfer (ALT/SGP 30.0 U/L (12-78); Albumin, Blood 3.6 g/dL (3.4-5.0); Albumin/Globulin Ratio 0.8 (0.8-1.8); Anion Gap 5.0 mmol/L (3-11); Aspartate Aminotrans (AST/SGOT 25.0 U/L (12-37); Bilirubin, Total 0.6 mg/dL (0.1-1.0); Blood Urea Nitrogen 6.0 mg/dL (8-24); CO2, Blood 30.0 mmol/L (21-32); Calcium, Blood 8.8 mg/dL (8.5-10.1); Chloride, Blood 107.0 mmol/L (98-108); Creatinine, Blood 0.53 mg/dL (0.40-1.00); Globulin, Blood 4.4 g/dL (2.2-4.0); Glucose, Blood 159.0 mg/dL (70-99); Potassium, Blood 3.2 mmol/L (3.5-5.5); Sodium, Blood 139.0 mmol/L (136-145); Total Protein, Blood 8.0 g/dL (6.4-8.2)
[2025-07-09 13:05] LABS: Source, Urine Clean Catch
[2025-07-09 13:21] LABS: Bilirubin, Urine Neg (Neg); Color, Urine Yellow (P-Yellow); Glucose Qualitative, Urine Neg (Neg); Ketones, Urine Neg (Neg); Leukocyte Esterase, Urine Neg (Neg); Protein, Urine 1+ (Neg); Specific Gravity, Urine 1.015 (1.003-1.022); Urobilinogen, Urine NORM (Normal)
[2025-07-09 13:49] LABS: White Blood Cells, Urine 0-2 /hpf (0-5)
[2025-07-09] MEDS ORDERED: IMMUN GLOB G(IGG)/PRO/IGA 0-50 100 ML IV SCH (15:45)
[2025-07-09] MEDS ORDERED: NS 1,000 ML IV ONE (16:05)
[2025-07-09] MEDS ORDERED: CefTRIAXone Sodium 1,000 MG in NS 100 ML IV ONE (16:30)
[2025-07-09] MEDS ORDERED: Midazolam HCl 1MG / ML 2ML Vial IV ONE (16:43)
[2025-07-09] MEDS ORDERED: Etomidate 2MG / ML 10ML Vial XX ONE (16:43)
[2025-07-09] MEDS ORDERED: LORazepam 2 MG/ML 1ML Injection IV ONE (16:43)
[2025-07-09] MEDS ORDERED: Rocuronium Bromide 10 MG/ML 5ML Injection IV ONE (16:43)
[2025-07-09] MEDS ORDERED: Midazolam HCL 1 MG/ML 5MLVIAL ONE (16:57)
[2025-07-09] MEDS ORDERED: Midazolam HCL 1 MG/ML 5MLVIAL IV ONE (17:00)
[2025-07-09] MEDS ORDERED: FentaNYL Citrate 50 MCG/ML 2 ML Injection IV ONE (17:15)
[2025-07-09 18:09] LABS: Source, Urine Foley catheter
[2025-07-09 18:12] LABS: Bilirubin, Urine Neg (Neg); Color, Urine Yellow (P-Yellow); Glucose Qualitative, Urine Neg (Neg); Ketones, Urine 3+ (Neg); Leukocyte Esterase, Urine Neg (Neg); Protein, Urine Neg (Neg); Specific Gravity, Urine 1.010 (1.003-1.022); Urobilinogen, Urine NORM (Normal)
[2025-07-09 18:17] VITALS: BP 134/87
[2025-07-09 18:20] LABS: Red Blood Cells, Urine 0-2 /hpf (0-2); White Blood Cells, Urine 0-2 /hpf (0-5)
== END 2025-07-09 18:55 | disposition short-term general hospital (02) ==
LOC: ER 09:59
PROVIDERS: Student in an Organized Health Care Education/Training Program
DX: M62.81 Muscle weakness (generalized) (principal); G70.00 Myasthenia gravis without (acute) exacerbation; J18.9 Pneumonia, unspecified organism; E87.6 Hypokalemia; E03.9 Hypothyroidism, unspecified; K21.9 Gastro-esophageal reflux disease without esophagitis; Z87.891 Personal history of nicotine dependence; Z79.899 Other long term (current) drug therapy; Z88.1 Allergy status to other antibiotic agents; Z88.8 Allergy status to other drugs, medicaments and biological substances
CPT/HCPCS: 31500; 51701; 51702; 71045; 71046; 80053; 81001; 83690; 84484; 85025; 93005; 93010; 94002; 96365; 96366; 96368; 96375; 96376; 99291-25; A6590; J0696; J1459; J2060; J2250; J2270; J2704; J3010; J7030

== ENCOUNTER → 2025-09-02 | Outpatient (CLI) | payer MEDICARE, BC ==
[2025-09-02 14:07] LABS: Thyroid Stimulating Hormone 3.93 uIU/mL (0.360-4.800)
== END ==
LOC: LAB 12:18 → LAB SHORT 12:18
PROVIDERS: Registered Nurse
DX: E03.9 Hypothyroidism, unspecified (principal); J96.11 Chronic respiratory failure with hypoxia
CPT/HCPCS: 84439; 84443; 84481